=== PATIENT | male | born 1970 | race Hispanic/Latino ===

== ENCOUNTER 2020-05-18 15:02 | Emergency (ER) | payer BC ==
[2020-05-19 01:59] LABS: SARS-CoV-2 MS2 Positive; SARS-CoV-2 N Gene Positive; SARS-CoV-2 S Gene Positive; SARS-CoV-2 by NAA DETECTED (NotDetected); SARS-CoV-2 orf1ab Positive
== END 2020-05-18 15:21 | disposition home or self-care (01) ==
LOC: ERS 15:02
DX: U07.1 COVID-19 (principal)
CPT/HCPCS: 87635; 99283; U0003

== ENCOUNTER 2020-05-19 20:37 | Emergency (ER) | payer BC ==
[2020-05-19] MEDS ORDERED: Ibuprofen 200 MG TAB ONE (20:55)
[2020-05-19] MEDS ORDERED: Acetaminophen 500 MG TAB ONE (20:55)
[2020-05-19 21:34] LABS: Hemoglobin 16.5 g/dL (14.0-18.0); Mean Corpuscular HGB CONC 35.3 g/dL (32.0-36.0); Mean Corpuscular Hemoglobin 31.1 pg (27.0-31.0); Mean Corpuscular Volume 88.1 fL (78.0-98.0); White Blood Cell (WBC) Count 4.7 thou/uL (4.8-10.8)
[2020-05-19 21:50] LABS: ALT (SGPT) 24 U/L (8-55); AST (SGOT) 31 U/L (5-34); Albumin 3.8 g/dL (3.5-5.0); Alkaline Phosphatase 49 U/L (40-110); Anion Gap 16 mmol/L (10-20); BUN (Urea Nitrogen) 10 mg/dL (8.9-20.6); Bilirubin, Total 0.5 mg/dL (0.2-1.2); Calc. Creatinine Clearance 0 mL/min (70-130); Carbon Dioxide 20 mmol/L (22-29); Chloride 98 mmol/L (98-107); Globulin 3.5 g/dL (2.4-3.5); Glucose 135 mg/dL (70-105); Potassium 3.8 mmol/L (3.5-5.1); Protein, Total 7.3 g/dL (6.0-8.3); Sodium 130 mmol/L (136-145)
[2020-05-19 21:52] LABS: #Lymphocytes 0.9 thou/uL (1.20-3.40); #Monocytes 0.2 thou/uL (0.11-0.59); #Neutrophils 3.6 thou/uL (1.40-6.50); %Basophils 0.5 % (0.0-1.0); %Lymphocytes 19.2 % (21.0-51.0); %Monocytes 4.5 % (0.0-10.0); %Neutrophils 75.8 % (42.0-75.0); Mean Platelet Volume 8.7 fL (7.4-10.4); Platelet Count 105 thou/uL (130-400); Platelet Morphology Comment Appears Decreased
--- NOTE | 2020-05-19 22:22 | RAD ---
EXAM: CHEST ONE VIEW HISTORY: Fever and bodyaches. Covid exposure. COMPARISON: None FINDINGS: Cardiac silhouette is magnified by projection. Pulmonary vasculature is within normal limits. There i s linear and patchy parenchymal density at the right lung base with suggestion of subtle patchy parenchymal density in the left midlung zone. Findings are worrisome for pneumonitis, and Covid pneum onia is a possibility. No consolidation or pleural fluid is appreciated. The osseous structures are intact. IMPRESSION: Minimal patchy densities at the right lung base and left midlung zone. Findings are suggestive of pne umonitis, and Covid pneumonia is a possibility.
[2020-05-19] MEDS ORDERED: Dexamethasone 4 mg/ml Vial ONE (22:35)
== END 2020-05-19 22:37 | disposition home or self-care (01) ==
LOC: ERS 20:37
DX: U07.1 COVID-19 (principal)
CPT/HCPCS: 71045; 80053; 85025; 96374; J1100

== ENCOUNTER 2020-05-23 10:53 | Inpatient (IN) | payer BC ==
[2020-05-23] MEDS ORDERED: Azithromycin 500 MG VIAL ONE (11:20)
[2020-05-23] MEDS ORDERED: Acetaminophen 500 MG TAB ONE (11:20)
[2020-05-23] MEDS ORDERED: cefTRIAXone\\ROCEPHIN 1 GM VIAL ONE (11:20)
[2020-05-23] MEDS ORDERED: Dexamethasone 4 mg/ml Vial ONE (11:47)
[2020-05-23 11:51] LABS: White Blood Cell (WBC) Count 16.1 thou/uL (4.8-10.8)
--- NOTE | 2020-05-23 12:04 | RAD ---
CHEST 1 VIEW: Date: 05/23/2020 HISTORY: Chest pain, worsening shortness of breath and difficulty breathing, COVID-positive. COMPARISON: 05/19/2020. FINDINGS: Fairly extensive progressive alveolar, interstitial, and ground-glass opacity changes bilaterally thr oughout the lung zones. No significant pleural effusion. IMPRESSION: Evidence for worsening progressive bilateral COVID pneumonia. POS: AH
[2020-05-23 12:06] LABS: Base Excess-Venous -1.8 mmol/L (-2.0 to 3.0); Bicarbonate (HCO3v) 19.8 mmol/L (22.0-28.0); CO2 Tension (PvCO2) 25.5 mmHg (40.0-50.0); Calcium, Ionized 0.93 mmol/L (1.15-1.33); Chloride 102 mmol/L (98-107); Potassium 3.6 mmol/L (3.5-5.1); Sodium 134 mmol/L (138-145); T. Carbon Dioxide 20.6 mmol/L (22.0-28.0)
[2020-05-23 12:06] LABS: Hemoglobin 16.4 g/dL (14.0-18.0); Mean Corpuscular HGB CONC 34.8 g/dL (32.0-36.0); Mean Corpuscular Hemoglobin 30.9 pg (27.0-31.0); Mean Corpuscular Volume 88.9 fL (78.0-98.0); Mean Platelet Volume 9.1 fL (7.4-10.4); Platelet Count 148 thou/uL (130-400); RBC Distribution Width 12.4 % (11.5-14.5)
[2020-05-23 12:09] LABS: ALT (SGPT) 25 U/L (8-55); AST (SGOT) 41 U/L (5-34); Albumin 3.4 g/dL (3.5-5.0); Alkaline Phosphatase 48 U/L (40-110); Anion Gap 16 mmol/L (10-20); BUN (Urea Nitrogen) 17 mg/dL (8.9-20.6); Bilirubin, Total 0.7 mg/dL (0.2-1.2); Calc. Creatinine Clearance 0 mL/min (70-130); Calcium 8.2 mg/dL (7.8-10.44); Carbon Dioxide 21 mmol/L (22-29); Chloride 99 mmol/L (98-107); Globulin 3.7 g/dL (2.4-3.5); Glucose 140 mg/dL (70-105); Potassium 4.1 mmol/L (3.5-5.1); Protein, Total 7.1 g/dL (6.0-8.3); Sodium 132 mmol/L (136-145)
[2020-05-23 12:12] LABS: Band 14 % (5-11); Lymphocytes 3 % (21-51); MDiff Complete? YES; Monocytes 1 % (0-10); Neutrophil 82 % (42-75); Platelet Morphology Comment Appears Adequate; RBC Morphology Normal
[2020-05-23] MEDS ORDERED: Iopamidol-370 76% 500 ML 1 ML ONE (13:12)
--- NOTE | 2020-05-23 13:44 | CT ---
CTA Angio Chest W WO Con 05/23/2020 1:17 PM Indication: Chest pain Technique: Multiple CTA images were obtained of the thorax with IV contrast. 3-D rendering: MIP nadira nstructed images were created and reviewed. Comparison: No relevant prior studies available. Findings: Pulmonary arteries: No central or segmental pulmonary embolus is evident. Heart and Aorta: There are coronary artery calcifications. Mediastinum:There are mildly prominent lymph nodes within the hilar region and mediastinum. There is a prominent prevascular lymph node measuring 1.3 cm. Lungs:There is bilateral airspace consolidation consistent with multifocal pneumonia. Pleural space: Clear. Upper Abdomen: No acute abnormality. Osseous Structures: No acute osseous abnormality. Soft tissues:No abnormality. Other findings:None. Impression: 1. No central or segmental pulmonary embolus. 2. Multifocal pneumonia. 3. Mildly prominent lymph nodes within the hilar regions and mediastinum are likely reactive. Follow- up CT examination after abatement of the acute symptoms is recommended to document resolution or stability.
[2020-05-23] MEDS ORDERED: Ondansetron PF 4 MG/2 ML Vial IVP PRN (14:17)
--- NOTE | 2020-05-23 14:36 | HP ---
CHIEF COMPLAINT: Shortness of breath. HISTORY OF PRESENT ILLNESS: The patient is a 50-year-old male with no significant past medical history, who was diagnosed with COVID-19 ten days ago. He presented to the ER with complaints of worsening shortness of breath, chest pain, and fever. He endorses dry cough and diarrhea, and denies vomiting, palpitations, or dizziness. REVIEW OF SYSTEMS: Negative except as noted in HPI. PAST MEDICAL HISTORY: None. PAST SURGICAL HISTORY: Cholecystectomy. SOCIAL HISTORY: The patient denies alcohol use, illicit drug use, or smoking. FAMILY HISTORY: Noncontributory. PHYSICAL EXAMINATION: GENERAL: The patient is alert and oriented x3. HEENT: Head is normocephalic and atraumatic. Extraocular muscles are intact. NECK: Supple. CHEST: Clear to auscultation bilaterally with some crackles at the bases. ABDOMEN: Soft, nontender, nondistended. NEUROLOGIC: Nonfocal. ASSESSMENT: 1. Acute respiratory failure with hypoxia. 2. COVID-19 infection. PLAN: The patient will be admitted to the hospital and started on supplemental oxygen, dexamethasone, and Lovenox for anticoagulation. We will monitor his condition on the medical floor. Job ID: [id number]
[2020-05-23 14:49] LABS: Bilirubin Negative (Negative); Blood, Urine Negative (Negative); Clarity Clear (Clear); Glucose, Urine (Dipstick) Normal (Negative); Ketone, Urine Negative (Negative); Leukocyte Negative Leu/uL (Negative); Nitrite Negative (Negative); Protein, Urine (Dipstick) Negative (Neg-Trace); Specific Gravity, Urine 1.028 (1.002-1.036); Urobilinogen Normal mg/dL (Less than 2); pH, Urine 6.5 (5.0-9.0)
[2020-05-23 14:49] LABS: Lactic Acid 1.6 mmol/L (0.5-2.2)
[2020-05-23] MEDS: Enoxaparin Sodium 40 MG/0.4 ML SYRINGE SC SCH (20:25)
[2020-05-23] MEDS: Acetaminophen 325 MG TAB PO PRN (20:38)
[2020-05-23] MEDS ORDERED: Acetaminophen 325 MG TAB PO SCH (22:15)
[2020-05-24] MEDS: Acetaminophen 325 MG TAB PO PRN ×2 (06:01→16:55)
[2020-05-24 06:44] LABS: Anion Gap 14 mmol/L (10-20); BUN (Urea Nitrogen) 19 mg/dL (8.9-20.6); Calc. Creatinine Clearance 121 mL/min (70-130); Calcium 7.9 mg/dL (7.8-10.44); Carbon Dioxide 22 mmol/L (22-29); Chloride 101 mmol/L (98-107); Glucose 140 mg/dL (70-105); Potassium 4.2 mmol/L (3.5-5.1); Sodium 133 mmol/L (136-145)
[2020-05-24 06:49] LABS: Band 28 % (5-11); Hemoglobin 15.5 g/dL (14.0-18.0); Lymphocytes 7 % (21-51); MDiff Complete? YES; Mean Corpuscular HGB CONC 33.6 g/dL (32.0-36.0); Mean Corpuscular Hemoglobin 30.3 pg (27.0-31.0); Mean Corpuscular Volume 90.3 fL (78.0-98.0); Mean Platelet Volume 9.3 fL (7.4-10.4); Monocytes 3 % (0-10); Neutrophil 61 % (42-75); Platelet Count 169 thou/uL (130-400); Platelet Morphology Comment Appears Adequate; RBC Distribution Width 12.5 % (11.5-14.5); RBC Morphology Normal; Reactive Lymphocytes 1 % (0-10); White Blood Cell (WBC) Count 16.7 thou/uL (4.8-10.8)
[2020-05-24] MEDS ORDERED: FLU VACC QS2020-21(6MOS UP)/PF 60 MCG/0.5 ML SYRINGE IM ONE (09:00)
[2020-05-24] MEDS: Dexamethasone 4 mg/ml Vial SLOW IVP SCH (09:59)
[2020-05-24] MEDS: Enoxaparin Sodium 40 MG/0.4 ML SYRINGE SC SCH ×2 (10:00→20:19)
--- NOTE | 2020-05-24 15:20 | PDOC.HOSPP ---
- Subjective Encounter Date: 05/24/20 Encounter Time: 15:18 Subjective: patient seen on f/u for respiratory failure secondary to covid 19, currently patient is on high flow oxygen, states MANUEL with minimal movement. denies any fever chills n/v does refers some cough - Objective Vital Signs & Weight: Vital Signs (12 hours) Temp Pulse Resp BP Pulse Ox 05/24/20 09:00 99.7 F H 89 28 H 108/65 94 L 05/24/20 08:00 94 L 05/24/20 05:00 85 24 H 92 L 05/24/20 04:20 98.9 F 89 28 H 104/68 87 L 05/24/20 04:15 83 L Weight Weight 183 lb 4.8 oz I&O: 05/23/20 05/24/20 05/25/20 06:59 06:59 06:59 Intake Total 730 480 Output Total 450 Balance 280 480 Result Diagrams: 05/24/20 05:37 05/24/20 05:37 Hospitalist ROS - Review of Systems All other systems reviewed; all pertinent +/- noted in HPI/Subj - Medication Medications: Active Medications Generic Name Dose Route Start Last Admin Trade Name Freq PRN Reason Stop Dose Admin Acetaminophen 650 mg 05/23/20 14:17 05/24/20 06:01 Acetaminophen 325 Mg Tab PO 650 mg Q4H PRN Administration Headache/Fever/Mild Pain (1-3) Dexamethasone 6 mg 05/24/20 09:00 05/24/20 09:59 Dexamethasone 4 Mg/Ml Vial SLOW IVP 6 mg DAILY ISABEL Administration Enoxaparin Sodium 40 mg 05/23/20 21:00 05/24/20 10:00 Enoxaparin Sodium 40 Mg/0.4 Ml Syringe SC 40 mg 0900,2100 ISABEL Administration - Exam General Appearance: NAD, awake alert Eye: PERRL, anicteric sclera ENT: normocephalic atraumatic, no oropharyngeal lesions Neck: supple, symmetric, no JVD Heart: RRR, no murmur, no gallops Respiratory: CTAB, no wheezes, no rales, tachypneic Gastrointestinal: soft, non-tender, non-distended Extremities: no cyanosis, no clubbing, no edema Skin: normal turgor, no lesions, no rashes Neurological: cranial nerve grossly intact, normal sensation to touch Musculoskeletal: normal tone, no muscle wasting Psychiatric: normal affect, normal behavior, A&O x 3 Hosp A/P (1) Pneumonia due to COVID-19 virus Code(s): U07.1 - COVID-19; J12.89 - OTHER VIRAL PNEUMONIA Status: Acute (2) Respiratory failure with hypoxia Code(s): J96.91 - RESPIRATORY FAILURE, UNSPECIFIED WITH HYPOXIA Status: Acute - Plan respiratory failure with hypoxia - on high flow 02 - wean as tolerated - likely secondary to covid 19 covid 19 pneumonia - on decadron ivd - started prophylactically on rocephin + aleks - 02 supplementation as above - dvt prophylaxis
[2020-05-24] MEDS: cefTRIAXone\\ROCEPHIN 1 GM in Sodium Chloride 0.9% 100 ML IVPB SCH (16:05)
[2020-05-24] MEDS: Azithromycin 500 MG in Sodium Chloride 0.9% 250 ML 250 ML IVPB SCH (16:55)
[2020-05-25 06:13] LABS: Anion Gap 16 mmol/L (10-20); BUN (Urea Nitrogen) 20 mg/dL (8.9-20.6); Calc. Creatinine Clearance 133 mL/min (70-130); Calcium 7.7 mg/dL (7.8-10.44); Carbon Dioxide 21 mmol/L (22-29); Chloride 106 mmol/L (98-107); Glucose 145 mg/dL (70-105); Potassium 4.5 mmol/L (3.5-5.1); Sodium 138 mmol/L (136-145)
[2020-05-25 06:22] LABS: Band 14 % (5-11); Hemoglobin 14.7 g/dL (14.0-18.0); Lymphocytes 3 % (21-51); MDiff Complete? YES; Mean Corpuscular HGB CONC 33.8 g/dL (32.0-36.0); Mean Corpuscular Hemoglobin 30.6 pg (27.0-31.0); Mean Corpuscular Volume 90.4 fL (78.0-98.0); Monocytes 7 % (0-10); Neutrophil 76 % (42-75); Nucleated RBC 1 % (0); Platelet Count 212 thou/uL (130-400); Platelet Morphology Comment Appears Adequate; RBC Distribution Width 12.4 % (11.5-14.5); White Blood Cell (WBC) Count 10.6 thou/uL (4.8-10.8)
[2020-05-25] MEDS: Enoxaparin Sodium 40 MG/0.4 ML SYRINGE SC SCH ×2 (07:51→20:31)
[2020-05-25] MEDS: Dexamethasone 4 mg/ml Vial SLOW IVP SCH (07:51)
--- NOTE | 2020-05-25 13:24 | PDOC.HOSPP ---
- Subjective Encounter Date: 05/25/20 Encounter Time: 10:00 Subjective: patient seen on f/u, refers no significant change in his status, complains of dyspnea and cough. denies fever chills chest pain or abdominal pain, does refers episodes of diarrhea for a couple of days. patient states gets winded when moving from bed to bedside chair - Objective Vital Signs & Weight: Vital Signs (12 hours) Temp Pulse Resp BP Pulse Ox 05/25/20 11:08 98.6 F 88 20 110/73 92 L 05/25/20 09:00 98.6 F 05/25/20 08:00 90 L 05/25/20 07:32 98.6 F 80 22 H 97/66 90 L 05/25/20 05:00 98.7 F 71 22 H 105/72 92 L Weight Weight 183 lb 4.8 oz I&O: 05/24/20 05/25/20 05/26/20 06:59 06:59 06:59 Intake Total 730 1870 240 Output Total 450 450 Balance 280 1420 240 Result Diagrams: 05/25/20 05:47 05/25/20 05:48 Hospitalist ROS - Review of Systems All other systems reviewed; all pertinent +/- noted in HPI/Subj - Medication Medications: Active Medications Generic Name Dose Route Start Last Admin Trade Name Freq PRN Reason Stop Dose Admin Acetaminophen 650 mg 05/23/20 14:17 05/24/20 16:55 Acetaminophen 325 Mg Tab PO 650 mg Q4H PRN Administration Headache/Fever/Mild Pain (1-3) Dexamethasone 6 mg 05/24/20 09:00 05/25/20 07:51 Dexamethasone 4 Mg/Ml Vial SLOW IVP 6 mg DAILY ISABEL Administration Enoxaparin Sodium 40 mg 05/23/20 21:00 05/25/20 07:51 Enoxaparin Sodium 40 Mg/0.4 Ml Syringe SC 40 mg 0900,2100 ISABEL Administration Ceftriaxone Sodium 1 gm/ 100 mls @ 200 mls/hr 05/24/20 16:00 05/24/20 16:05 Sodium Chloride IVPB 100 mls 1600 ISABEL Administration Azithromycin 500 mg/ Sodium 250 mls @ 250 mls/hr 05/24/20 17:00 05/24/20 16:55 Chloride IVPB 250 mls 1700 ISABEL Administration - Exam General Appearance: ill appearing Eye: PERRL, anicteric sclera ENT: normocephalic atraumatic, no oropharyngeal lesions Neck: supple, symmetric, no JVD Heart: RRR, no murmur, no gallops Respiratory: CTAB, no wheezes, no rales Gastrointestinal: soft, non-tender, non-distended Extremities: no cyanosis, no clubbing, no edema Skin: normal turgor, no lesions, no rashes Neurological: cranial nerve grossly intact, normal sensation to touch Psychiatric: normal affect, normal behavior, A&O x 3 Hosp A/P (1) Pneumonia due to COVID-19 virus Code(s): U07.1 - COVID-19; J12.89 - OTHER VIRAL PNEUMONIA Status: Acute (2) Respiratory failure with hypoxia Code(s): J96.91 - RESPIRATORY FAILURE, UNSPECIFIED WITH HYPOXIA Status: Acute - Plan respiratory failure with hypoxia - on high flow 02, have been unable to wean anita - wean as tolerated - likely secondary to covid 19 covid 19 pneumonia - on decadron ivd - started prophylactically on rocephin + aleks due to leukocytosis - 02 supplementation as above - dvt prophylaxis - will add vit c, zinc and vit d
[2020-05-25] MEDS: cefTRIAXone\\ROCEPHIN 1 GM in Sodium Chloride 0.9% 100 ML IVPB SCH (15:26)
[2020-05-25] MEDS: Azithromycin 500 MG in Sodium Chloride 0.9% 250 ML 250 ML IVPB SCH (17:32)
[2020-05-25] MEDS ORDERED: Albuterol Sulfate 1.25 MG/3 ML NEB NEB PRN (23:39)
[2020-05-26] MEDS: Albuterol 200 PUFF (6.7GM INHALER) INH PRN (00:07)
[2020-05-26] MEDS: Dexamethasone 4 mg/ml Vial SLOW IVP SCH (07:49)
[2020-05-26] MEDS: Cholecalciferol (Vitamin D3) 400 UNITS TAB PO SCH (07:50)
[2020-05-26] MEDS: Enoxaparin Sodium 40 MG/0.4 ML SYRINGE SC SCH ×2 (07:50→20:05)
[2020-05-26] MEDS: Zinc Sulfate 220 MG CAP PO SCH (07:50)
[2020-05-26] MEDS: Ascorbic Acid 500 mg Chewable Tablet PO SCH (07:50)
[2020-05-26] MEDS: Benzonatate 100 MG CAP PO SCH ×2 (14:54→20:04)
[2020-05-26] MEDS: cefTRIAXone\\ROCEPHIN 1 GM in Sodium Chloride 0.9% 100 ML IVPB SCH (14:54)
[2020-05-26] MEDS: Azithromycin 500 MG in Sodium Chloride 0.9% 250 ML 250 ML IVPB SCH (17:18)
--- NOTE | 2020-05-26 17:48 | PDOC.HOSPP ---
- Subjective Encounter Date: 05/26/20 Encounter Time: 14:00 Subjective: patient in chair, complains of persistent SOB and still requiring HFNC, no signficiant change overnight. complains of cough. - Objective Vital Signs & Weight: Vital Signs (12 hours) Temp Pulse Resp BP Pulse Ox 05/26/20 15:56 95 05/26/20 11:08 96 05/26/20 08:12 94 L 05/26/20 07:17 98.4 F 70 20 119/73 91 L Weight Weight 183 lb 4.8 oz I&O: 05/25/20 05/26/20 05/27/20 06:59 06:59 06:59 Intake Total 1870 1870 Output Total 450 500 Balance 1420 1370 Result Diagrams: 05/25/20 05:47 05/25/20 05:48 Hospitalist ROS - Medication Medications: Active Medications Generic Name Dose Route Start Last Admin Trade Name Freq PRN Reason Stop Dose Admin Acetaminophen 650 mg 05/23/20 14:17 05/24/20 16:55 Acetaminophen 325 Mg Tab PO 650 mg Q4H PRN Administration Headache/Fever/Mild Pain (1-3) Albuterol Sulfate 1 puff 05/25/20 23:43 05/26/20 00:07 Albuterol 200 Puff (6.7gm Inhaler) INH 1 puff Q8H PRN Administration Wheezing Ascorbic Acid 1,000 mg 05/26/20 09:00 05/26/20 07:50 Ascorbic Acid 500 Mg Chewable Tablet PO 1,000 mg DAILY ISABEL Administration Benzonatate 100 mg 05/26/20 15:00 05/26/20 14:54 Benzonatate 100 Mg Cap PO 05/29/20 15:01 100 mg TID ISABEL Administration Cholecalciferol 400 units 05/26/20 09:00 05/26/20 07:50 Cholecalciferol (Vitamin D3) 400 Units Tab PO 400 units DAILY ISABEL Administration Dexamethasone 6 mg 05/24/20 09:00 05/26/20 07:49 Dexamethasone 4 Mg/Ml Vial SLOW IVP 6 mg DAILY ISABEL Administration Enoxaparin Sodium 40 mg 05/23/20 21:00 05/26/20 07:50 Enoxaparin Sodium 40 Mg/0.4 Ml Syringe SC 40 mg 0900,2100 ISABEL Administration Ceftriaxone Sodium 1 gm/ 100 mls @ 200 mls/hr 05/24/20 16:00 05/26/20 14:54 Sodium Chloride IVPB 100 mls 1600 ISABEL Administration Azithromycin 500 mg/ Sodium 250 mls @ 250 mls/hr 05/24/20 17:00 05/26/20 17:18 Chloride IVPB 250 mls 1700 ISABEL Administration Zinc Sulfate 220 mg 05/26/20 09:00 05/26/20 07:50 Zinc Sulfate 220 Mg Cap PO 220 mg DAILY ISABEL Administration - Exam General Appearance: NAD, awake alert, ill appearing General - other findings: on hfnc Eye: PERRL, anicteric sclera ENT: normocephalic atraumatic, no oropharyngeal lesions, moist mucosa Neck: supple, symmetric, no JVD, no thyromegaly, no lymphadenopathy, no carotid bruit Heart: RRR, no murmur, no gallops, no rubs, normal peripheral pulses Respiratory: CTAB, no wheezes, no rales, no ronchi, normal chest expansion, no tachypnea, normal percussion Gastrointestinal: soft, non-tender, non-distended, normal bowel sounds, no palpable masses, no hepatomegaly, no splenomegaly, no bruit Extremities: no cyanosis, no clubbing, no edema Skin: normal turgor, no lesions, no rashes Neurological: cranial nerve grossly intact, normal sensation to touch, no weakness, no focal deficits, no new deficit Musculoskeletal: normal tone, normal strength, no muscle wasting Psychiatric: normal affect, normal behavior, A&O x 3 Hosp A/P (1) Pneumonia due to COVID-19 virus Code(s): U07.1 - COVID-19; J12.89 - OTHER VIRAL PNEUMONIA Status: Acute (2) Respiratory failure with hypoxia Code(s): J96.91 - RESPIRATORY FAILURE, UNSPECIFIED WITH HYPOXIA Status: Acute - Plan respiratory failure with hypoxia - on high flow 02, have been unable to wean anita - wean as tolerated - likely secondary to covid 19 covid 19 pneumonia - on decadron ivd - started prophylactically on rocephin + aleks due to leukocytosis - 02 supplementation as above - dvt prophylaxis - continue vit c, zinc and vit d # cough - tessalon pearls added
[2020-05-27 07:33] LABS: Anion Gap 14 mmol/L (10-20); BUN (Urea Nitrogen) 16 mg/dL (8.9-20.6); Calc. Creatinine Clearance 142 mL/min (70-130); Calcium 7.4 mg/dL (7.8-10.44); Carbon Dioxide 18 mmol/L (22-29); Chloride 104 mmol/L (98-107); Glucose 150 mg/dL (70-105); Sodium 132 mmol/L (136-145)
[2020-05-27 07:43] LABS: Hemoglobin 14.9 g/dL (14.0-18.0); Mean Corpuscular HGB CONC 33.6 g/dL (32.0-36.0); Mean Corpuscular Hemoglobin 30.2 pg (27.0-31.0); Mean Corpuscular Volume 89.8 fL (78.0-98.0); Mean Platelet Volume 10.1 fL (7.4-10.4); Platelet Count 160 thou/uL (130-400); RBC Distribution Width 12.3 % (11.5-14.5); Red Blood Cell (RBC) Count 4.93 mill/uL (4.70-6.10)
[2020-05-27] MEDS: Zinc Sulfate 220 MG CAP PO SCH (08:15)
[2020-05-27] MEDS: Enoxaparin Sodium 40 MG/0.4 ML SYRINGE SC SCH ×2 (08:15→20:17)
[2020-05-27] MEDS: Dexamethasone 4 mg/ml Vial SLOW IVP SCH (08:15)
[2020-05-27] MEDS: Ascorbic Acid 500 mg Chewable Tablet PO SCH (08:15)
[2020-05-27] MEDS: Benzonatate 100 MG CAP PO SCH ×3 (08:16→20:16)
[2020-05-27] MEDS: Cholecalciferol (Vitamin D3) 400 UNITS TAB PO SCH (08:16)
[2020-05-27 09:45] LABS: Band 8 % (5-11); Lymphocytes 6 % (21-51); MDiff Complete? YES; Monocytes 6 % (0-10); Neutrophil 80 % (42-75); Platelet Morphology Comment Appears Adequate; Polychromasia SLIGHT = 2-3 cells (100X) (0-2/hpf)
--- NOTE | 2020-05-27 13:22 | PDOC.HOSPP ---
- Subjective Encounter Date: 05/27/20 Encounter Time: 12:30 Subjective: patient in chair on hfnc, reports feeling weak since not ambulating, nursing thinks therapy evaluation would help. denies chest pain or shortness of breath. - Objective Vital Signs & Weight: Vital Signs (12 hours) Temp Pulse Resp BP Pulse Ox 05/27/20 10:47 98.5 F 82 20 112/70 92 L 05/27/20 04:00 98.3 F 73 20 119/71 95 Weight Weight 183 lb 4.8 oz I&O: 05/26/20 05/27/20 05/28/20 06:59 06:59 06:59 Intake Total 1870 1250 Output Total 500 700 Balance 1370 550 Result Diagrams: 05/27/20 06:54 05/27/20 06:54 Radiology Reviewed by me: Yes Hospitalist ROS - Medication Medications: Active Medications Generic Name Dose Route Start Last Admin Trade Name Freq PRN Reason Stop Dose Admin Acetaminophen 650 mg 05/23/20 14:17 05/24/20 16:55 Acetaminophen 325 Mg Tab PO 650 mg Q4H PRN Administration Headache/Fever/Mild Pain (1-3) Albuterol Sulfate 1 puff 05/25/20 23:43 05/26/20 00:07 Albuterol 200 Puff (6.7gm Inhaler) INH 1 puff Q8H PRN Administration Wheezing Ascorbic Acid 1,000 mg 05/26/20 09:00 05/27/20 08:15 Ascorbic Acid 500 Mg Chewable Tablet PO 1,000 mg DAILY ISABEL Administration Benzonatate 100 mg 05/26/20 15:00 05/27/20 08:16 Benzonatate 100 Mg Cap PO 05/29/20 15:01 100 mg TID ISABEL Administration Cholecalciferol 400 units 05/26/20 09:00 05/27/20 08:16 Cholecalciferol (Vitamin D3) 400 Units Tab PO 400 units DAILY ISABEL Administration Dexamethasone 6 mg 05/24/20 09:00 05/27/20 08:15 Dexamethasone 4 Mg/Ml Vial SLOW IVP 6 mg DAILY ISABEL Administration Enoxaparin Sodium 40 mg 05/23/20 21:00 05/27/20 08:15 Enoxaparin Sodium 40 Mg/0.4 Ml Syringe SC 40 mg 0900,2100 ISABEL Administration Ceftriaxone Sodium 1 gm/ 100 mls @ 200 mls/hr 05/24/20 16:00 05/26/20 14:54 Sodium Chloride IVPB 100 mls 1600 ISABEL Administration Azithromycin 500 mg/ Sodium 250 mls @ 250 mls/hr 05/24/20 17:00 05/26/20 17:18 Chloride IVPB 250 mls 1700 ISABEL Administration Zinc Sulfate 220 mg 05/26/20 09:00 05/27/20 08:15 Zinc Sulfate 220 Mg Cap PO 220 mg DAILY ISABEL Administration - Exam General Appearance: NAD, awake alert Eye: PERRL, anicteric sclera ENT: normocephalic atraumatic, no oropharyngeal lesions, moist mucosa Neck: supple, symmetric, no JVD, no thyromegaly, no lymphadenopathy, no carotid bruit Heart: RRR, no murmur, no gallops, no rubs, normal peripheral pulses Respiratory: CTAB, no wheezes, no rales, no ronchi, normal chest expansion, no tachypnea, normal percussion Gastrointestinal: soft, non-tender, non-distended, normal bowel sounds, no palpable masses, no hepatomegaly, no splenomegaly, no bruit Extremities: no cyanosis, no clubbing, no edema Skin: normal turgor, no lesions, no rashes Neurological: cranial nerve grossly intact, normal sensation to touch, no weakness, no focal deficits, no new deficit Musculoskeletal: normal tone, normal strength, no muscle wasting Psychiatric: normal affect, normal behavior, A&O x 3 Hosp A/P (1) Pneumonia due to COVID-19 virus Code(s): U07.1 - COVID-19; J12.89 - OTHER VIRAL PNEUMONIA Status: Acute (2) Respiratory failure with hypoxia Code(s): J96.91 - RESPIRATORY FAILURE, UNSPECIFIED WITH HYPOXIA Status: Acute - Plan respiratory failure with hypoxia - on high flow 02, have been unable to wean anita - wean as tolerated - likely secondary to covid 19 covid 19 pneumonia - on decadron ivd - started prophylactically on rocephin + aleks due to leukocytosis - 02 supplementation as above - dvt prophylaxis - continue vit c, zinc and vit d # cough - tessalon fercho # debility - PT/OT consult Disposition: prognosis guarded, hopefully improve soon, on high o2 requirements, will start therapy to avoid losing too much muscle mass
[2020-05-27] MEDS: cefTRIAXone\\ROCEPHIN 1 GM in Sodium Chloride 0.9% 100 ML IVPB SCH (15:30)
[2020-05-27] MEDS: Azithromycin 500 MG in Sodium Chloride 0.9% 250 ML 250 ML IVPB SCH (17:12)
[2020-05-28] MEDS: Albuterol 200 PUFF (6.7GM INHALER) INH PRN (06:20)
[2020-05-28] MEDS: Acetaminophen 325 MG TAB PO PRN (06:20)
[2020-05-28 09:16] LABS: Anion Gap 15 mmol/L (10-20); BUN (Urea Nitrogen) 11 mg/dL (8.9-20.6); Calc. Creatinine Clearance 142 mL/min (70-130); Carbon Dioxide 23 mmol/L (22-29); Chloride 101 mmol/L (98-107); Glucose 97 mg/dL (70-105); Sodium 135 mmol/L (136-145)
[2020-05-28 09:21] LABS: Mean Corpuscular HGB CONC 34.1 g/dL (32.0-36.0); Mean Corpuscular Hemoglobin 30.4 pg (27.0-31.0); Mean Corpuscular Volume 89.1 fL (78.0-98.0); Mean Platelet Volume 8.3 fL (7.4-10.4); Platelet Count 273 thou/uL (130-400); RBC Distribution Width 12.1 % (11.5-14.5); Red Blood Cell (RBC) Count 4.95 mill/uL (4.70-6.10)
[2020-05-28] MEDS: Enoxaparin Sodium 40 MG/0.4 ML SYRINGE SC SCH ×2 (09:40→21:09)
[2020-05-28] MEDS: Ascorbic Acid 500 mg Chewable Tablet PO SCH (09:40)
[2020-05-28] MEDS: Zinc Sulfate 220 MG CAP PO SCH (09:40)
[2020-05-28] MEDS: Dexamethasone 4 mg/ml Vial SLOW IVP SCH (09:40)
[2020-05-28] MEDS: Benzonatate 100 MG CAP PO SCH ×3 (09:40→21:09)
[2020-05-28 10:26] LABS: MDiff Complete? YES; Neutrophil 75 % (42-75)
[2020-05-28 10:27] LABS: Band 15 % (5-11); Lymphocytes 5 % (21-51); Metamyelocyte 1 % (0-0); Monocytes 4 % (0-10); RBC Morphology Normal
[2020-05-28] MEDS ORDERED: Cepastat Lozenges 1 LOZ PO PRN (11:54)
[2020-05-28] MEDS: Cholecalciferol (Vitamin D3) 400 UNITS TAB PO SCH (12:14)
[2020-05-28] MEDS: guaiFENesin/Codeine 200 mg/20 mg 10 ml Cup PO PRN ×2 (12:14→21:18)
[2020-05-28] MEDS: cefTRIAXone\\ROCEPHIN 1 GM in Sodium Chloride 0.9% 100 ML IVPB SCH (15:19)
[2020-05-28] MEDS: Azithromycin 500 MG in Sodium Chloride 0.9% 250 ML 250 ML IVPB SCH (16:27)
--- NOTE | 2020-05-28 20:37 | PDOC.HOSPP ---
- Subjective Encounter Date: 05/28/20 Encounter Time: 13:30 Subjective: remains on HFNC, no issues overnight, complains of sore throat - Objective Vital Signs & Weight: Vital Signs (12 hours) Temp Pulse Resp BP Pulse Ox Pulse Ox Pulse Ox 05/28/20 19:10 98.7 F 75 20 113/71 92 L 05/28/20 12:17 98 05/28/20 12:00 98.3 F 05/28/20 11:44 96 97 Weight Weight 183 lb 4.8 oz I&O: 05/27/20 05/28/20 05/29/20 06:59 06:59 06:59 Intake Total 1250 1150 1480 Output Total 700 2000 600 Balance 550 -850 880 Result Diagrams: 05/28/20 08:09 05/28/20 08:09 Hospitalist ROS - Medication Medications: Active Medications Generic Name Dose Route Start Last Admin Trade Name Freq PRN Reason Stop Dose Admin Acetaminophen 650 mg 05/23/20 14:17 05/28/20 06:20 Acetaminophen 325 Mg Tab PO 650 mg Q4H PRN Administration Headache/Fever/Mild Pain (1-3) Albuterol Sulfate 1 puff 05/25/20 23:43 05/28/20 06:20 Albuterol 200 Puff (6.7gm Inhaler) INH 1 puff Q8H PRN Administration Wheezing Ascorbic Acid 1,000 mg 05/26/20 09:00 05/28/20 09:40 Ascorbic Acid 500 Mg Chewable Tablet PO 1,000 mg DAILY ISABEL Administration Benzonatate 100 mg 05/26/20 15:00 05/28/20 15:20 Benzonatate 100 Mg Cap PO 05/29/20 15:01 100 mg TID ISABEL Administration Cholecalciferol 400 units 05/26/20 09:00 05/28/20 12:14 Cholecalciferol (Vitamin D3) 400 Units Tab PO 400 units DAILY ISABEL Administration Dexamethasone 6 mg 05/24/20 09:00 05/28/20 09:40 Dexamethasone 4 Mg/Ml Vial SLOW IVP 6 mg DAILY ISABEL Administration Enoxaparin Sodium 40 mg 05/23/20 21:00 05/28/20 09:40 Enoxaparin Sodium 40 Mg/0.4 Ml Syringe SC 40 mg 0900,2100 ISABEL Administration Guaifenesin/Codeine Phosphate 10 ml 05/28/20 11:54 05/28/20 12:14 Guaifenesin/Codeine Phosphate 200 Mg/20 Mg 10 Ml Ud Cup PO 10 ml Q6H PRN Administration Cough Ceftriaxone Sodium 1 gm/ 100 mls @ 200 mls/hr 05/24/20 16:00 05/28/20 15:19 Sodium Chloride IVPB 100 mls 1600 ISABEL Administration Azithromycin 500 mg/ Sodium 250 mls @ 250 mls/hr 05/24/20 17:00 05/28/20 16:27 Chloride IVPB 250 mls 1700 ISABEL Administration Throat Lozenges 1 aaliyah 05/28/20 11:54 05/28/20 15:19 Cepastat Lozenges 1 Aaliyah PO 1 aaliyah Q2H PRN Administration Sore Throat Zinc Sulfate 220 mg 05/26/20 09:00 05/28/20 09:40 Zinc Sulfate 220 Mg Cap PO 220 mg DAILY ISABEL Administration - Exam General Appearance: NAD, awake alert Eye: PERRL, anicteric sclera ENT: normocephalic atraumatic, no oropharyngeal lesions, moist mucosa Neck: supple, symmetric, no JVD, no thyromegaly, no lymphadenopathy, no carotid bruit Heart: RRR, no murmur, no gallops, no rubs, normal peripheral pulses Respiratory: CTAB, no wheezes, no rales, no ronchi, normal chest expansion, no tachypnea, normal percussion Gastrointestinal: soft, non-tender, non-distended, normal bowel sounds, no palpable masses, no hepatomegaly, no splenomegaly, no bruit Extremities: no cyanosis, no clubbing, no edema Skin: normal turgor, no lesions, no rashes Neurological: cranial nerve grossly intact, normal sensation to touch, no weakness, no focal deficits, no new deficit Musculoskeletal: normal tone, normal strength, no muscle wasting Psychiatric: normal affect, normal behavior, A&O x 3 Hosp A/P (1) Pneumonia due to COVID-19 virus Code(s): U07.1 - COVID-19; J12.89 - OTHER VIRAL PNEUMONIA Status: Acute (2) Respiratory failure with hypoxia Code(s): J96.91 - RESPIRATORY FAILURE, UNSPECIFIED WITH HYPOXIA Status: Acute - Plan respiratory failure with hypoxia - on high flow 02, have been unable to wean anita - wean as tolerated - likely secondary to covid 19 - febrile night of 05/28, continue abx started 05/24 covid 19 pneumonia - on decadron ivd - started prophylactically on rocephin + aleks due to leukocytosis - 02 supplementation as above - dvt prophylaxis - continue vit c, zinc and vit d # cough - tessalon pearls, cepacol lozenge for sore throat, cough syrup ordered # debility - PT/OT consult Disposition: prognosis guarded, hopefully improve soon, on high o2 requirements, consulted therapy to avoid losing too much muscle mass
[2020-05-29] MEDS: Acetaminophen 325 MG TAB PO PRN (05:40)
[2020-05-29] MEDS: Albuterol 200 PUFF (6.7GM INHALER) INH PRN (05:52)
[2020-05-29 07:55] LABS: Anion Gap 15 mmol/L (10-20); BUN (Urea Nitrogen) 13 mg/dL (8.9-20.6); Calc. Creatinine Clearance 157 mL/min (70-130); Calcium 7.6 mg/dL (7.8-10.44); Carbon Dioxide 21 mmol/L (22-29); Chloride 102 mmol/L (98-107); Glucose 125 mg/dL (70-105); Potassium 3.9 mmol/L (3.5-5.1); Sodium 134 mmol/L (136-145)
[2020-05-29 07:58] LABS: Hemoglobin 13.5 g/dL (14.0-18.0); Mean Corpuscular HGB CONC 34.3 g/dL (32.0-36.0); Mean Corpuscular Hemoglobin 31.1 pg (27.0-31.0); Mean Corpuscular Volume 90.5 fL (78.0-98.0); Mean Platelet Volume 8.1 fL (7.4-10.4); Platelet Count 273 thou/uL (130-400); RBC Distribution Width 12.1 % (11.5-14.5); Red Blood Cell (RBC) Count 4.36 mill/uL (4.70-6.10); White Blood Cell (WBC) Count 15.8 thou/uL (4.8-10.8)
[2020-05-29] MEDS: Zinc Sulfate 220 MG CAP PO SCH (08:09)
[2020-05-29] MEDS: guaiFENesin/Codeine 200 mg/20 mg 10 ml Cup PO PRN ×2 (08:09→16:01)
[2020-05-29] MEDS: Ascorbic Acid 500 mg Chewable Tablet PO SCH (08:09)
[2020-05-29] MEDS: Benzonatate 100 MG CAP PO SCH ×2 (08:09→14:48)
[2020-05-29] MEDS: Dexamethasone 4 mg/ml Vial SLOW IVP SCH (08:09)
[2020-05-29] MEDS: Enoxaparin Sodium 40 MG/0.4 ML SYRINGE SC SCH ×2 (08:10→20:48)
[2020-05-29 08:43] LABS: Band 10 % (5-11); Lymphocytes 3 % (21-51); MDiff Complete? YES; Neutrophil 87 % (42-75); Platelet Morphology Comment Appears Adequate; RBC Morphology Normal
[2020-05-29] MEDS: Cholecalciferol (Vitamin D3) 400 UNITS TAB PO SCH (12:27)
[2020-05-29] MEDS: cefTRIAXone\\ROCEPHIN 1 GM in Sodium Chloride 0.9% 100 ML IVPB SCH (14:48)
[2020-05-29] MEDS: Azithromycin 500 MG in Sodium Chloride 0.9% 250 ML 250 ML IVPB SCH (16:00)
--- NOTE | 2020-05-29 16:16 | PDOC.HOSPP ---
- Subjective Encounter Date: 05/29/20 Encounter Time: 16:15 Subjective: minimal change, remains of HFNC. no shortness of breath or chest pain. - Objective Vital Signs & Weight: Vital Signs (12 hours) Temp Pulse Resp BP Pulse Ox 05/29/20 12:00 99.0 F 78 20 101/65 95 05/29/20 11:11 95 05/29/20 08:00 98.9 F 96 18 95/57 L 89 L 05/29/20 06:10 99.5 F 05/29/20 05:40 99 F Weight Weight 183 lb 4.8 oz I&O: 05/28/20 05/29/20 05/30/20 06:59 06:59 06:59 Intake Total 1150 2390 480 Output Total 2000 600 Balance -850 1790 480 Result Diagrams: 05/29/20 07:23 05/29/20 07:23 Additional Labs: labs, imaging reviewed Radiology Reviewed by me: Yes Hospitalist ROS - Medication Medications: Active Medications Generic Name Dose Route Start Last Admin Trade Name Freq PRN Reason Stop Dose Admin Acetaminophen 650 mg 05/23/20 14:17 05/29/20 05:40 Acetaminophen 325 Mg Tab PO 650 mg Q4H PRN Administration Headache/Fever/Mild Pain (1-3) Albuterol Sulfate 1 puff 05/25/20 23:43 05/29/20 05:52 Albuterol 200 Puff (6.7gm Inhaler) INH 1 puff Q8H PRN Administration Wheezing Ascorbic Acid 1,000 mg 05/26/20 09:00 05/29/20 08:09 Ascorbic Acid 500 Mg Chewable Tablet PO 1,000 mg DAILY ISABEL Administration Cholecalciferol 400 units 05/26/20 09:00 05/29/20 12:27 Cholecalciferol (Vitamin D3) 400 Units Tab PO 400 units DAILY ISABEL Administration Dexamethasone 6 mg 05/24/20 09:00 05/29/20 08:09 Dexamethasone 4 Mg/Ml Vial SLOW IVP 6 mg DAILY ISABEL Administration Enoxaparin Sodium 40 mg 05/23/20 21:00 05/29/20 08:10 Enoxaparin Sodium 40 Mg/0.4 Ml Syringe SC 40 mg 0900,2100 ISABEL Administration Guaifenesin/Codeine Phosphate 10 ml 05/28/20 11:54 05/29/20 16:01 Guaifenesin/Codeine Phosphate 200 Mg/20 Mg 10 Ml Ud Cup PO 10 ml Q6H PRN Administration Cough Ceftriaxone Sodium 1 gm/ 100 mls @ 200 mls/hr 05/24/20 16:00 05/29/20 14:48 Sodium Chloride IVPB 100 mls 1600 ISABEL Administration Azithromycin 500 mg/ Sodium 250 mls @ 250 mls/hr 05/24/20 17:00 05/29/20 16:00 Chloride IVPB 250 mls 1700 ISABEL Administration Throat Lozenges 1 aaliyah 05/28/20 11:54 05/28/20 15:19 Cepastat Lozenges 1 Aaliyah PO 1 aaliyah Q2H PRN Administration Sore Throat Zinc Sulfate 220 mg 05/26/20 09:00 05/29/20 08:09 Zinc Sulfate 220 Mg Cap PO 220 mg DAILY ISABEL Administration - Exam General Appearance: NAD, awake alert General - other findings: HFNC Eye: PERRL ENT: normocephalic atraumatic, no oropharyngeal lesions, moist mucosa Neck: supple, symmetric, no JVD, no thyromegaly, no lymphadenopathy, no carotid bruit Heart: RRR, no murmur, no gallops, no rubs, normal peripheral pulses Respiratory: CTAB, no wheezes, no rales, no ronchi, normal chest expansion, no tachypnea, normal percussion Gastrointestinal: soft, non-tender, non-distended, normal bowel sounds, no palpable masses, no hepatomegaly, no splenomegaly, no bruit Extremities: no cyanosis, no clubbing, no edema Skin: normal turgor, no lesions, no rashes Neurological: cranial nerve grossly intact, normal sensation to touch, no weakness, no focal deficits, no new deficit Musculoskeletal: normal tone, normal strength, no muscle wasting Hosp A/P (1) Pneumonia due to COVID-19 virus Code(s): U07.1 - COVID-19; J12.89 - OTHER VIRAL PNEUMONIA Status: Acute (2) Respiratory failure with hypoxia Code(s): J96.91 - RESPIRATORY FAILURE, UNSPECIFIED WITH HYPOXIA Status: Acute - Plan respiratory failure with hypoxia - on high flow , have been unable to wean anita - wean as tolerated - likely secondary to covid 19 - febrile night of 05/28, continue abx started 12/25 - consult Dr Petty for consideration of additional covid therapires given slow improvement covid 19 pneumonia - on decadron ivd - started prophylactically on rocephin + aleks due to leukocytosis - 02 supplementation as above - dvt prophylaxis - continue vit c, zinc and vit d # cough - tessalon pearls, cepacol lozenge for sore throat, cough syrup ordered # debility - PT/OT consult Disposition: prognosis guarded, hopefully improve soon, on high o2 requirements, consulted therapy to avoid losing too much muscle mass
--- NOTE | 2020-05-29 16:21 | CON ---
DATE OF CONSULTATION: 05/29/2020 REASON FOR CONSULTATION: COVID pneumonia. HISTORY OF PRESENT ILLNESS: A 50-year-old with no past medical history, who initially presented to the emergency room on May 18, about 10 days ago, because of fever, chills, and body aches for 2 days after some exposure. He was released home after testing and the next day he came back with fever again. The COVID results were not yet back and he was saturating 98% on room air. He had chest x-ray with minimal patchy densities in the right lung base. So he was discharged with oral Decadron 6 mg and then finally on the , he comes in the third time to the emergency room with worsening symptoms of dyspnea, diarrhea. This time, he gets admitted, he was saturating 80% on room air and 94% on 4 L of oxygen. So he was admitted by Dr. Skinner on the . He was given Decadron and Lovenox. He was not given remdesivir. We were asked to see him for evaluation for COVID pneumonia. Currently, Mr. Bucio is sitting by the bedside. He is little bit tachypneic, but not much. He is on high-flow nasal cannula and has been on high-flow nasal cannula since May 24 pretty much from admission. He denies any headaches, still coughing but not as much as before. No chest pain, no abdominal pain or diarrhea, no genitourinary symptoms. No neurological symptoms. PAST MEDICAL HISTORY: Negative. PAST SURGICAL HISTORY: Cholecystectomy. SOCIAL HISTORY: Never smoker. No alcoholic beverage use. He works as a truck dispatcher. . Lives in the area. CURRENT MEDICATIONS: 1. Azithromycin. 2. Ceftriaxone. 3. Decadron. 4. Zinc sulfate. 5. Ondansetron. 6. Inhalers. FAMILY HISTORY: Noncontributory. PHYSICAL EXAMINATION: VITAL SIGNS: Right now, he had a temp 102 yesterday and he is now 99, blood pressure 101/65, heart rate 78, respiratory rate 20, O2 saturation 95%, he was 96% when I saw him sitting by the bed in the chair and was 45 L/minute high-flow nasal cannula O2. SKIN: Normal. Peripheral IV access. No lymphadenopathy. GENERAL: Voiding in the urinal. HEENT: Ocular movements conjugate. Oral cavity normal. Numerous teeth in place with good shape. NECK: Supple. No jugular vein distention. LUNGS: Fairly normal breath sounds, actually no wheezing. HEART: S1, S2, regular rate. ABDOMEN: Soft, not distended or tender. No ascites. No bladder distention. EXTREMITIES: No joint inflammatory activity. No edema. Pulses 1+ in dorsalis pedis. NEUROLOGIC: Nonfocal including cognitive function. LABORATORY [place]: [place] [address], hemoglobin 15, platelets 273 with 15% bands. D-dimer 1.02. Creatinine 0.66. Lactic acid was 1.6. I do not have any inflammatory markers measured here. Urinalysis normal. Had a chest CT on the with no pulmonary embolism, multifocal pneumonia, prominent lymph nodes. ASSESSMENT AND PLAN: No past medical history or other risk factors with severe COVID pneumonia. Discontinue antimicrobial Rocephin, azithromycin. Start Remdesivir. Continue Decadron, enoxaparin, oxygen supplementation. Check markers every other day. His Lexie score is > 9 at this time. Job ID: [id number] [facility]
[2020-05-29] MEDS ORDERED: REMDESIVIR (EUA) 200 MG in Sodium Chloride 0.9% 250 ML 210 ML IV SCH (17:00)
[2020-05-30] MEDS: guaiFENesin/Codeine 200 mg/20 mg 10 ml Cup PO PRN ×4 (04:48→21:52)
[2020-05-30] MEDS: Acetaminophen 325 MG TAB PO PRN ×2 (04:50→10:14)
[2020-05-30] MEDS: Albuterol 200 PUFF (6.7GM INHALER) INH PRN ×2 (05:00→22:00)
[2020-05-30] MEDS: Ascorbic Acid 500 mg Chewable Tablet PO SCH (08:38)
[2020-05-30] MEDS: Dexamethasone 4 mg/ml Vial SLOW IVP SCH (08:38)
[2020-05-30] MEDS: Zinc Sulfate 220 MG CAP PO SCH (08:39)
[2020-05-30] MEDS: Enoxaparin Sodium 40 MG/0.4 ML SYRINGE SC SCH ×2 (08:39→21:52)
[2020-05-30] MEDS: cefTRIAXone\\ROCEPHIN 1 GM in Sodium Chloride 0.9% 100 ML IVPB SCH (15:14)
[2020-05-30] MEDS: Azithromycin 500 MG in Sodium Chloride 0.9% 250 ML 250 ML IVPB SCH (16:19)
[2020-05-30] MEDS: Cholecalciferol (Vitamin D3) 400 UNITS TAB PO SCH (16:19)
--- NOTE | 2020-05-30 17:21 | PDOC.HOSPP ---
- Subjective Encounter Date: 05/30/20 Subjective: She was seen and examined He was sitting up in his chair by the bed. Complained of worsening shortness of breath and cough. He denied any chest pain rales or diarrhea - Objective Vital Signs & Weight: Vital Signs (12 hours) Temp Pulse Resp BP Pulse Ox 05/30/20 16:53 98.5 F 100 20 103/68 91 L 05/30/20 12:00 98.6 F 86 20 103/61 95 05/30/20 10:14 100.7 F H 05/30/20 08:00 99.2 F 92 18 96/60 90 L 05/30/20 05:44 99.1 F 91 20 101/54 L 90 L Weight Weight 183 lb 4.8 oz I&O: 05/29/20 05/30/20 05/31/20 06:59 06:59 06:59 Intake Total 2390 2380 Output Total 600 900 Balance 1790 1480 Result Diagrams: 05/29/20 07:23 05/29/20 07:23 Hospitalist ROS - Review of Systems All other systems reviewed; all pertinent +/- noted in HPI/Subj - Medication Medications: Active Medications Generic Name Dose Route Start Last Admin Trade Name Freq PRN Reason Stop Dose Admin Acetaminophen 650 mg 05/23/20 14:17 05/30/20 10:14 Acetaminophen 325 Mg Tab PO 650 mg Q4H PRN Administration Headache/Fever/Mild Pain (1-3) Albuterol Sulfate 1 puff 05/25/20 23:43 05/30/20 05:00 Albuterol 200 Puff (6.7gm Inhaler) INH 1 puff Q8H PRN Administration Wheezing Ascorbic Acid 1,000 mg 05/26/20 09:00 05/30/20 08:38 Ascorbic Acid 500 Mg Chewable Tablet PO 1,000 mg DAILY ISABEL Administration Cholecalciferol 400 units 05/26/20 09:00 05/30/20 16:19 Cholecalciferol (Vitamin D3) 400 Units Tab PO 400 units DAILY ISABEL Administration Dexamethasone 6 mg 05/24/20 09:00 05/30/20 08:38 Dexamethasone 4 Mg/Ml Vial SLOW IVP 6 mg DAILY ISABEL Administration Enoxaparin Sodium 40 mg 05/23/20 21:00 05/30/20 08:39 Enoxaparin Sodium 40 Mg/0.4 Ml Syringe SC 40 mg 0900,2100 ISABEL Administration Guaifenesin/Codeine Phosphate 10 ml 05/28/20 11:54 05/30/20 15:22 Guaifenesin/Codeine Phosphate 200 Mg/20 Mg 10 Ml Ud Cup PO 10 ml Q6H PRN Administration Cough Ceftriaxone Sodium 1 gm/ 100 mls @ 200 mls/hr 05/24/20 16:00 05/30/20 15:14 Sodium Chloride IVPB 100 mls 1600 ISABEL Administration Azithromycin 500 mg/ Sodium 250 mls @ 250 mls/hr 05/24/20 17:00 05/30/20 16:19 Chloride IVPB 250 mls 1700 ISABEL Administration Throat Lozenges 1 aaliyah 05/28/20 11:54 05/28/20 15:19 Cepastat Lozenges 1 Aaliyah PO 1 aaliyah Q2H PRN Administration Sore Throat Zinc Sulfate 220 mg 05/26/20 09:00 05/30/20 08:39 Zinc Sulfate 220 Mg Cap PO 220 mg DAILY ISABEL Administration - Exam General Appearance: awake alert Eye: PERRL, anicteric sclera ENT: no oropharyngeal lesions Neck: supple, no JVD Heart: RRR, no murmur, no gallops, no rubs Respiratory - other findings: Scattered wheezes, reduced air entry bilaterally. Gastrointestinal: soft, non-tender, non-distended, normal bowel sounds Extremities: no cyanosis, no clubbing, no edema Neurological: cranial nerve grossly intact, no focal deficits Psychiatric: normal affect, normal behavior, A&O x 3 Hosp A/P - Plan This is a 50-year-old male patient with no significant past medical admitted on account of acute respiratory failure secondary to Covid pneumonia. Acute hypoxic respiratory failure The setting of Covid Currently on high flow oxygen Continue monitoring wean down oxygen as possible Pulmonology consult if worsens Pneumonia due to Covid Continue vitamin C and remdesivir Steroids on board ID following. VT prophylaxisLovenox CODE STATUSfull code
[2020-05-30] MEDS: REMDESIVIR (EUA) 100 MG in Sodium Chloride 0.9% 250 ML 230 ML IV SCH (18:22)
[2020-05-31] MEDS: Acetaminophen 325 MG TAB PO PRN ×2 (02:00→10:17)
[2020-05-31 08:16] LABS: Actual Bicarbonate (HCO3a) 21.7 mEq/L (22-28); Base Excess (BEa) 0.3 mEq/L (-2.0 to +3.0); CO2 Tension 27.3 mmHg (35.0-45.0); Carboxyhemoglobin (COHb) 0.8 gm% (0.0-3.0); Hemoglobin (Hb) 14.8 g/dL (14.0-18.0); Potassium - ABG Lab 4.02 mmol/L (3.70-5.30); pH, Arterial 7.52 (7.35-7.45)
[2020-05-31 08:17] LABS: Anion Gap 14 mmol/L (10-20); BUN (Urea Nitrogen) 11 mg/dL (8.9-20.6); Calc. Creatinine Clearance 148 mL/min (70-130); Calcium 7.8 mg/dL (7.8-10.44); Carbon Dioxide 23 mmol/L (22-29); Chloride 100 mmol/L (98-107); Glucose 89 mg/dL (70-105); Potassium 4.4 mmol/L (3.5-5.1); Sodium 133 mmol/L (136-145)
[2020-05-31 08:22] LABS: Hemoglobin 15.1 g/dL (14.0-18.0); Mean Corpuscular HGB CONC 33.6 g/dL (32.0-36.0); Mean Corpuscular Hemoglobin 30.6 pg (27.0-31.0); Mean Corpuscular Volume 90.9 fL (78.0-98.0); Platelet Count 280 thou/uL (130-400); RBC Distribution Width 12.5 % (11.5-14.5); Red Blood Cell (RBC) Count 4.93 mill/uL (4.70-6.10)
[2020-05-31 08:23] LABS: Band 13 % (5-11); Eosinophils 1 % (0-10); MDiff Complete? YES; Neutrophil 86 % (42-75)
[2020-05-31 08:24] LABS: O2 Tension (PaO2), arterial 45.9 mmHg (80.0-100.0); Puncture Site RRA
[2020-05-31 08:25] LABS: ALV-art Gradient 583.065 mmHg (0-20)
[2020-05-31] MEDS ORDERED: Propofol 1,000 MG/100 ML VIAL IV ONE (08:52)
[2020-05-31] MEDS ORDERED: Dexamethasone 4 mg/ml Vial SLOW IVP SCH (09:00)
[2020-05-31] MEDS ORDERED: Lorazepam 2 MG/ML VIAL ONE (09:10)
[2020-05-31 09:27] LABS: Actual Bicarbonate (HCO3a) 21.8 mEq/L (22-28); CO2 Tension 46.5 mmHg (35.0-45.0); Calcium, Ionized (arterial) 1.06 mmol/L (1.12-1.30); Carboxyhemoglobin (COHb) 0.7 gm% (0.0-3.0); Potassium - ABG Lab 4.21 mmol/L (3.70-5.30); pH, Arterial 7.29 (7.35-7.45)
[2020-05-31 09:30] LABS: O2 Tension (PaO2), arterial 35.6 mmHg (80.0-100.0)
[2020-05-31] MEDS ORDERED: Morphine 2 MG/ML VIAL SLOW IVP PRN (09:30)
[2020-05-31] MEDS ORDERED: Propofol BOLUS 1,000 MG/100 ML VIAL IV PRN (09:30)
[2020-05-31] MEDS: Vecuronium 10 MG VIAL IV PRN ×6 (09:30→22:29)
[2020-05-31] MEDS ORDERED: DISCONTINUE PREVIOUS NARCOTIC PAIN MEDICATIONS AND BENZODIAZEPINES FS SCH (09:30)
[2020-05-31] MEDS ORDERED: Fentanyl BOLUS 250 ML IVPB PRN (09:30)
[2020-05-31 09:31] LABS: Puncture Site RBA
[2020-05-31 09:32] LABS: ALV-art Gradient 619.275 mmHg (0-20)
[2020-05-31] MEDS: Enoxaparin Sodium 40 MG/0.4 ML SYRINGE SC SCH ×2 (09:33→20:02)
[2020-05-31] MEDS: fentaNYL Citrate/PF 2,000 MCG in Sodium Chloride 0.9% 60 ML IV SCH ×2 (09:34→21:45)
[2020-05-31] MEDS: Ascorbic Acid 500 mg Chewable Tablet PO SCH (10:17)
[2020-05-31] MEDS: Zinc Sulfate 220 MG CAP PO SCH (10:17)
[2020-05-31] MEDS: Lorazepam 2 MG/ML VIAL SLOW IVP PRN (10:43)
[2020-05-31 11:02] LABS: Actual Bicarbonate (HCO3a) 24.6 mEq/L (22-28); Analyzer IN Cardio ER; Base Excess (BEa) -5.4 mEq/L (-2.0 to +3.0); Carboxyhemoglobin (COHb) 0.2 gm% (0.0-3.0); Hemoglobin (Hb) 15.4 g/dL (14.0-18.0); Potassium - ABG Lab 4.26 mmol/L (3.70-5.30)
[2020-05-31 11:09] LABS: CO2 Tension 68.1 mmHg (35.0-45.0); pH, Arterial 7.18 (7.35-7.45)
[2020-05-31 11:10] LABS: ALV-art Gradient 570.875 mmHg (0-20); Puncture Site LRA
--- NOTE | 2020-05-31 11:45 | RAD ---
EXAM: Chest one view: HISTORY: Post intubation chest pain worsening shortness of breath COMPARISON: 05/23/2020 NG tube and endotracheal tubes in position. FINDINGS: Heart size: Within normal limits. Lungs: Marked worsening in the bilateral alveolar, interstitial, and groundglass opacity changes evid ence for worsening bilateral Covid pneumonia. IMPRESSION: Evidence for worsening bilateral Covid pneumonia with placement of NG tube and endotracheal tube.
[2020-05-31] MEDS: Cefepime 1 GM in Sodium Chloride 0.9% 100 ML IVPB SCH ×2 (12:38→23:09)
[2020-05-31] MEDS: Propofol 1,000 MG/100 ML VIAL IV PRN ×2 (12:39→18:40)
[2020-05-31] MEDS: Cholecalciferol (Vitamin D3) 400 UNITS TAB PO SCH (15:09)
[2020-05-31] MEDS: REMDESIVIR (EUA) 100 MG in Sodium Chloride 0.9% 250 ML 230 ML IV SCH (17:47)
--- NOTE | 2020-05-31 18:11 | PDOC.HOSPP ---
- Subjective Encounter Date: 05/31/20 Subjective: Patient was seen and examined in bed. He is in acute worsening of respiratory distress His ABG was indicated of worsening hypoxemia and had maxed out on high flow nasal cannula. Decision was made to transition him to CCU for intubation. - Objective Vital Signs & Weight: Vital Signs (12 hours) Pulse Resp BP Pulse Ox 05/31/20 16:00 28 H 05/31/20 14:47 83 80/64 L 05/31/20 14:00 28 H 05/31/20 12:00 28 H 05/31/20 10:38 122 H 150/82 H 05/31/20 10:00 24 H 97 05/31/20 09:29 124 H 05/31/20 06:15 84 28 H 90 L Weight Weight 183 lb 4.8 oz Most Recent Monitor Data Heart Rate from ECG 73 NIBP 93/62 NIBP BP-Mean 72 Respiration from ECG 28 SpO2 91 I&O: 05/30/20 05/31/20 06/01/20 06:59 06:59 06:59 Intake Total 2380 4560 300 Output Total 900 3500 1260 Balance 1480 1060 -960 Result Diagrams: 05/31/20 07:38 05/31/20 07:38 Hospitalist ROS - Review of Systems ROS unobtainable: due to endotracheal tube - Medication Medications: Active Medications Generic Name Dose Route Start Last Admin Trade Name Freq PRN Reason Stop Dose Admin Acetaminophen 650 mg 05/23/20 14:17 05/31/20 10:17 Acetaminophen 325 Mg Tab PO 650 mg Q4H PRN Administration Headache/Fever/Mild Pain (1-3) Albuterol Sulfate 1 puff 05/25/20 23:43 05/30/20 22:00 Albuterol 200 Puff (6.7gm Inhaler) INH 1 puff Q8H PRN Administration Wheezing Ascorbic Acid 1,000 mg 05/26/20 09:00 05/31/20 10:17 Ascorbic Acid 500 Mg Chewable Tablet PO 1,000 mg DAILY ISABEL Administration Cholecalciferol 400 units 05/26/20 09:00 05/31/20 15:09 Cholecalciferol (Vitamin D3) 400 Units Tab PO Not Given DAILY ISABEL Enoxaparin Sodium 40 mg 05/23/20 21:00 05/31/20 09:33 Enoxaparin Sodium 40 Mg/0.4 Ml Syringe SC 40 mg 0900,2100 ISABEL Administration Guaifenesin/Codeine Phosphate 10 ml 05/28/20 11:54 05/30/20 21:52 Guaifenesin/Codeine Phosphate 200 Mg/20 Mg 10 Ml Ud Cup PO 10 ml Q6H PRN Administration Cough Remdesivir 100 mg/ Sodium 250 mls @ 250 mls/hr 05/30/20 17:00 05/31/20 17:47 Chloride IV 06/02/20 17:59 250 mls 1700 ISABEL Administration Fentanyl Citrate 2,000 mcg/ 100 mls @ 0 mls/hr 05/31/20 09:30 05/31/20 09:34 Sodium Chloride IV 06/30/20 09:30 100 mls INF ISABEL Administration Protocol Per Protocol Cefepime HCl 1 gm/ Sodium 100 mls @ 200 mls/hr 05/31/20 12:00 05/31/20 12:38 Chloride IVPB 100 mls 1200,2359 ISABEL Administration Doxycycline Hyclate 100 mg/ 100 mls @ 100 mls/hr 05/31/20 13:00 05/31/20 13:20 Sodium Chloride IVPB 100 mls 0100,1300 ISABEL Administration Lorazepam 2 mg 05/31/20 09:30 05/31/20 10:43 Lorazepam 2 Mg/Ml Vial SLOW IVP 06/30/20 09:30 2 mg Q1H PRN Administration Breakthrough agitation Propofol 1,000 mg 05/31/20 09:30 05/31/20 12:39 Propofol 1,000 Mg/100 Ml Vial IV 06/30/20 09:30 1,000 mg INF PRN Administration TO ACHIEVE GOAL RASS Protocol Throat Lozenges 1 aaliyah 05/28/20 11:54 05/28/20 15:19 Cepastat Lozenges 1 Aaliyah PO 1 aaliyah Q2H PRN Administration Sore Throat Vecuronium [place] 10 mg 05/31/20 09:24 05/31/20 14:20 Vecuronium 10 Mg Vial IV 10 mg Q1H PRN Administration Anxiety/Agitation Zinc Sulfate 220 mg 05/26/20 09:00 05/31/20 10:17 Zinc Sulfate 220 Mg Cap PO 220 mg DAILY ISABEL Administration - Exam General Appearance: awake alert General - other findings: Severe respiratory distress Heart: RRR, no gallops, no rubs, normal peripheral pulses Respiratory - other findings: Generalized wheezing, reduced air entry bilaterally Gastrointestinal: soft, non-tender, non-distended, normal bowel sounds Extremities: no cyanosis, no clubbing, no edema Neurological: cranial nerve grossly intact, no focal deficits Psychiatric: A&O x 3 Psychiatric - other findings: Extremely anxious Hosp A/P - Plan This is a 50-year-old male patient with no significant past medical admitted on account of acute respiratory failure secondary to Covid pneumonia. This morning he maxed out on high flow and was in severe respiratory distress. Transition to ICU and intubated. Acute hypoxic respiratory failure The setting of Covid Currently intubated Appreciate pulmonology input. Pneumonia due to Covid Continue vitamin C and remdesivir Steroids on board ID following. VT prophylaxisLovenox CODE STATUSfull code
[2020-05-31] MEDS: Dexamethasone 4 mg/ml Vial SLOW IVP SCH (20:04)
[2020-06-01] MEDS: Vecuronium 10 MG VIAL IV PRN ×2 (01:40→04:53)
[2020-06-01] MEDS: Propofol 1,000 MG/100 ML VIAL IV PRN ×4 (01:40→20:27)
[2020-06-01] MEDS: Lorazepam 2 MG/ML VIAL SLOW IVP PRN (04:53)
[2020-06-01 05:51] LABS: #Lymphocytes 0.3 thou/uL (1.20-3.40); #Monocytes 0.1 thou/uL (0.11-0.59); #Neutrophils 10.8 thou/uL (1.40-6.50); %Eosinophils 0.1 % (0.0-10.0); %Lymphocytes 2.7 % (21.0-51.0); %Monocytes 1.1 % (0.0-10.0); %Neutrophils 96.2 % (42.0-75.0); Hemoglobin 12.7 g/dL (14.0-18.0); Mean Corpuscular HGB CONC 32.4 g/dL (32.0-36.0); Mean Corpuscular Hemoglobin 30.3 pg (27.0-31.0); Mean Corpuscular Volume 93.5 fL (78.0-98.0); Mean Platelet Volume 8.1 fL (7.4-10.4); Platelet Count 232 thou/uL (130-400); RBC Distribution Width 12.5 % (11.5-14.5); Red Blood Cell (RBC) Count 4.21 mill/uL (4.70-6.10); White Blood Cell (WBC) Count 11.2 thou/uL (4.8-10.8)
[2020-06-01 06:14] LABS: Anion Gap 12 mmol/L (10-20); BUN (Urea Nitrogen) 15 mg/dL (8.9-20.6); Calc. Creatinine Clearance 162 mL/min (70-130); Calcium 7.5 mg/dL (7.8-10.44); Carbon Dioxide 28 mmol/L (22-29); Chloride 104 mmol/L (98-107); Glucose 142 mg/dL (70-105); Potassium 5.1 mmol/L (3.5-5.1); Sodium 139 mmol/L (136-145)
--- NOTE | 2020-06-01 06:43 | CON ---
DATE OF CONSULTATION: HISTORY OF PRESENT ILLNESS: A 50-year-old English gentleman intubated in the vent, who has been in the hospital since 05/23/2020. He became progressively more short of breath this morning, requiring intubation. His sats on high-flow were markedly decreased. Temperature 100.4. He is intubated by Anesthesia. He is now in the ICU. Infectious Disease was consulted yesterday for the first time. He is now getting remdesivir. Healthy gentleman with no prior medical illness, presented 05/23 with shortness of breath. His saturations were 80% initially on room air, respiratory rate of 30, blood pressure 190/98, temperature 100.3. PAST MEDICAL HISTORY: History of hypertension. PREVIOUS SURGERY: Cholecystectomy. SOCIAL HISTORY: Alcohol, none. Tobacco, none. CHRONIC MEDICATION: None. PHYSICAL EXAMINATION: GENERAL: He is intubated. VITAL SIGNS: Temperature 98, blood pressure , respiratory rate of 18. CHEST: No wheezing. No crackles. CARDIAC: Sinus tach. ABDOMEN: Soft. No masses. LABORATORY DATA: His pO2 is 57, pCO2 is 68, pH of 7.18 on a bilevel rate of , low PEEP of 12. sodium 133. ASSESSMENT: 1. Acute on chronic respiratory failure. 2. Cook positive pneumonia. 3. Acute respiratory distress syndrome. PLAN: Convalescent plasma is initiated. Continue remdesivir. Continue high-dose steroids, empiric antibiotics. Prognosis remains guarded. We are going to prone him for 3 days. Start nutrition. Otherwise, all supportive care. Prognosis is guarded. This is a 45-minute critical care time. Job ID: [id number]
[2020-06-01 07:54] LABS: Actual Bicarbonate (HCO3a) 27.7 mEq/L (22-28); CO2 Tension 52.6 mmHg (35.0-45.0); Calcium, Ionized (arterial) 1.14 mmol/L (1.12-1.30); Carboxyhemoglobin (COHb) 0.4 gm% (0.0-3.0); Hemoglobin (Hb) 13.3 g/dL (14.0-18.0); Potassium - ABG Lab 5.07 mmol/L (3.70-5.30); pH, Arterial 7.34 (7.35-7.45)
[2020-06-01 07:56] LABS: Puncture Site RRA
[2020-06-01] MEDS: Dexamethasone 4 mg/ml Vial SLOW IVP SCH ×2 (08:29→19:49)
[2020-06-01] MEDS: Enoxaparin Sodium 40 MG/0.4 ML SYRINGE SC SCH ×2 (08:30→19:48)
[2020-06-01] MEDS: Zinc Sulfate 220 MG CAP PO SCH (08:30)
[2020-06-01] MEDS: Ascorbic Acid 500 mg Chewable Tablet PO SCH (08:30)
--- NOTE | 2020-06-01 09:06 | RAD ---
Chest one view HISTORY: Pneumonia. Follow-up. COMPARISON: 05/31/2020. FINDINGS: Cardiac silhouette is now more obscured by diffuse, dense airspace opacity throughout each lung. Bilateral air bronchograms. Hemidiaphragms mostly obscured. Mediastinum is midline. Lines and tubes unchanged in position. No evidence of pneumothorax. IMPRESSION : Continued worsening of diffuse dense infiltrate/ARDS.
[2020-06-01] MEDS: Cholecalciferol (Vitamin D3) 400 UNITS TAB PO SCH (09:09)
[2020-06-01] MEDS: fentaNYL Citrate/PF 2,000 MCG in Sodium Chloride 0.9% 60 ML IV SCH (11:03)
--- NOTE | 2020-06-01 11:38 | PRG ---
DATE OF SERVICE: 06/01/2020 SUBJECTIVE: A 50-year-old gentleman, intubated in the vent with holloway positive infection on bilevel. X-ray shows diffuse haziness and complete opacification of both lungs. I's and O's are positive. OBJECTIVE: VITAL SIGNS: His temperature is 97, pulse 66, blood pressure 94/69, respiratory rate 18. CHEST: No wheezing. No crackles. CARDIAC: Normal S1 and S2. No gallops. ABDOMEN: No masses. LABORATORY DATA: White count 11,000; H and H 12 and 37. His pO2 is 59, pCO2 is 50, pH 7.37, bilevel with a rate of 28, 100%, low PEEP of 12. Lytes are normal. C-reactive protein is 16.4. ASSESSMENT: Respiratory failure, holloway positive pneumonia. PLAN: He is not weanable. We are going to continue supportive care. High-dose steroids, remdesivir, plasma. One-half hour of critical care time. Job ID: [id number]
[2020-06-01] MEDS: Cefepime 1 GM in Sodium Chloride 0.9% 100 ML IVPB SCH (11:54)
--- NOTE | 2020-06-01 15:56 | PDOC.HOSPP ---
- Subjective Subjective: follow up respiratory failure/COVID PNA. s/p intubated on 05/31/20 - Objective Vital Signs & Weight: Vital Signs (12 hours) Temp Pulse Resp BP Pulse Ox 06/01/20 14:48 65 93/59 L 06/01/20 14:00 28 H 06/01/20 12:00 98.6 F 28 H 06/01/20 10:31 66 89/63 L 06/01/20 10:00 28 H 06/01/20 08:45 93 L 06/01/20 08:00 97.5 F L 06/01/20 07:09 65 87/56 L 06/01/20 06:00 28 H 06/01/20 04:00 97.0 F L 28 H Weight Admit Weight 183 lb 4.8 oz Weight 183 lb 4.8 oz Most Recent Monitor Data Heart Rate from ECG 64 NIBP 92/58 NIBP BP-Mean 69 Respiration from ECG 28 SpO2 100 I&O: 05/31/20 06/01/20 06/02/20 06:59 06:59 06:59 Intake Total 4560 826 200 Output Total 3500 2650 515 Balance 1060 -1824 -315 Result Diagrams: 06/01/20 05:45 06/01/20 05:45 Radiology Reviewed by me: Yes EKG Reviewed by me: Yes Hospitalist ROS - Medication Medications: Active Medications Generic Name Dose Route Start Last Admin Trade Name Freq PRN Reason Stop Dose Admin Acetaminophen 650 mg 05/23/20 14:17 05/31/20 10:17 Acetaminophen 325 Mg Tab PO 650 mg Q4H PRN Administration Headache/Fever/Mild Pain (1-3) Albuterol Sulfate 1 puff 05/25/20 23:43 05/30/20 22:00 Albuterol 200 Puff (6.7gm Inhaler) INH 1 puff Q8H PRN Administration Wheezing Ascorbic Acid 1,000 mg 05/26/20 09:00 06/01/20 08:30 Ascorbic Acid 500 Mg Chewable Tablet PO 1,000 mg DAILY ISABEL Administration Cholecalciferol 400 units 05/26/20 09:00 06/01/20 09:09 Cholecalciferol (Vitamin D3) 400 Units Tab PO 400 units DAILY ISABEL Administration Dexamethasone 10 mg 05/31/20 21:00 06/01/20 08:29 Dexamethasone 4 Mg/Ml Vial SLOW IVP 10 mg BID ISABEL Administration Enoxaparin Sodium 40 mg 05/23/20 21:00 06/01/20 08:30 Enoxaparin Sodium 40 Mg/0.4 Ml Syringe SC 40 mg 0900,2100 ISABEL Administration Guaifenesin/Codeine Phosphate 10 ml 05/28/20 11:54 05/30/20 21:52 Guaifenesin/Codeine Phosphate 200 Mg/20 Mg 10 Ml Ud Cup PO 10 ml Q6H PRN Administration Cough Remdesivir 100 mg/ Sodium 250 mls @ 250 mls/hr 05/30/20 17:00 05/31/20 17:47 Chloride IV 06/02/20 17:59 250 mls 1700 ISABEL Administration Fentanyl Citrate 2,000 mcg/ 100 mls @ 0 mls/hr 05/31/20 09:30 06/01/20 11:03 Sodium Chloride IV 06/30/20 09:30 100 mls INF ISABEL Administration Protocol Per Protocol Cefepime HCl 1 gm/ Sodium 100 mls @ 200 mls/hr 05/31/20 12:00 06/01/20 11:54 Chloride IVPB 100 mls 1200,2359 ISABEL Administration Doxycycline Hyclate 100 mg/ 100 mls @ 100 mls/hr 05/31/20 13:00 06/01/20 12:47 Sodium Chloride IVPB 100 mls 0100,1300 ISABEL Administration Lorazepam 2 mg 05/31/20 09:30 06/01/20 04:53 Lorazepam 2 Mg/Ml Vial SLOW IVP 06/30/20 09:30 2 mg Q1H PRN Administration Breakthrough agitation Propofol 1,000 mg 05/31/20 09:30 06/01/20 07:18 Propofol 1,000 Mg/100 Ml Vial IV 06/30/20 09:30 1,000 mg INF PRN Administration TO ACHIEVE GOAL RASS Protocol Throat Lozenges 1 aaliyah 05/28/20 11:54 05/28/20 15:19 Cepastat Lozenges 1 Aaliyah PO 1 aaliyah Q2H PRN Administration Sore Throat Vecuronium [place] 10 mg 05/31/20 09:24 06/01/20 04:53 Vecuronium 10 Mg Vial IV 10 mg Q1H PRN Administration Anxiety/Agitation Zinc Sulfate 220 mg 05/26/20 09:00 06/01/20 08:30 Zinc Sulfate 220 Mg Cap PO 220 mg DAILY ISABEL Administration - Exam General - other findings: intubated Eye: PERRL ENT: normocephalic atraumatic Neck: supple Heart: RRR, no murmur Respiratory: rhonchi Gastrointestinal: soft, non-tender Extremities: no cyanosis Skin: normal turgor Hosp A/P - Plan This is a 50-year-old male patient with no significant past medical admitted on account of acute respiratory failure secondary to Covid pneumonia. Acute respiratory failure secondary to COVID-19 pneumonia --Status post intubation on 05/31/2019 --pt is on maximum therapy for COVID-19 pneumonia treatments including Remdesivir, Decadron, and ancillary treatments with Vit C/D/Zinc --s/p convalescent plasma --Lovenox for DVT ppx --Pul/ID consulted, appreciate input. COVID-19 Pneumonia --mgt as above.
--- NOTE | 2020-06-01 16:35 | EKG ---
Test Reason : Blood Pressure : / mmHG Vent. Rate : 115 BPM Atrial Rate : 115 BPM P-R Int : 136 ms QRS Dur : 072 ms QT Int : 290 ms P-R-T Axes : 039 -23 033 degrees QTc Int : 401 ms Sinus tachycardia Possible Left atrial enlargement Borderline ECG Confirmed by ANAND Godinez, JASON ([id number]), website/blog editor DANNIE HODGES ([id number]) on 06/01/2020 4:35:38 PM Referred By: Confirmed By:JASON MICHEL M.D.
[2020-06-01] MEDS: REMDESIVIR (EUA) 100 MG in Sodium Chloride 0.9% 250 ML 230 ML IV SCH (18:18)
[2020-06-02] MEDS: Cefepime 1 GM in Sodium Chloride 0.9% 100 ML IVPB SCH ×3 (00:05→23:21)
[2020-06-02] MEDS: Propofol 1,000 MG/100 ML VIAL IV PRN ×5 (00:25→23:22)
[2020-06-02] MEDS: fentaNYL Citrate/PF 2,000 MCG in Sodium Chloride 0.9% 60 ML IV SCH ×2 (00:27→13:45)
[2020-06-02 04:42] LABS: #Lymphocytes 0.3 thou/uL (1.20-3.40); #Monocytes 0.2 thou/uL (0.11-0.59); #Neutrophils 9.4 thou/uL (1.40-6.50); %Basophils 0.1 % (0.0-1.0); %Eosinophils 0.1 % (0.0-10.0); %Lymphocytes 3.1 % (21.0-51.0); %Monocytes 1.6 % (0.0-10.0); Hemoglobin 13.2 g/dL (14.0-18.0); Mean Corpuscular HGB CONC 32.9 g/dL (32.0-36.0); Mean Corpuscular Hemoglobin 30.9 pg (27.0-31.0); Mean Corpuscular Volume 93.8 fL (78.0-98.0); Mean Platelet Volume 8.3 fL (7.4-10.4); Platelet Count 237 thou/uL (130-400); RBC Distribution Width 12.5 % (11.5-14.5); Red Blood Cell (RBC) Count 4.27 mill/uL (4.70-6.10); White Blood Cell (WBC) Count 9.9 thou/uL (4.8-10.8)
[2020-06-02] MEDS: Vecuronium 10 MG VIAL IV PRN ×2 (04:45→05:47)
[2020-06-02 04:57] LABS: Anion Gap 13 mmol/L (10-20); BUN (Urea Nitrogen) 24 mg/dL (8.9-20.6); Calc. Creatinine Clearance 140 mL/min (70-130); Calcium 7.7 mg/dL (7.8-10.44); Carbon Dioxide 29 mmol/L (22-29); Chloride 104 mmol/L (98-107); Glucose 174 mg/dL (70-105); Potassium 5.1 mmol/L (3.5-5.1); Sodium 141 mmol/L (136-145)
[2020-06-02 08:21] LABS: Actual Bicarbonate (HCO3a) 27.6 mEq/L (22-28); Base Excess (BEa) 1.8 mEq/L (-2.0 to +3.0); CO2 Tension 48.1 mmHg (35.0-45.0); Calcium, Ionized (arterial) 1.16 mmol/L (1.12-1.30); Carboxyhemoglobin (COHb) 0.2 gm% (0.0-3.0); O2 Tension (PaO2), arterial 127.4 mmHg (80.0-100.0); Potassium - ABG Lab 4.66 mmol/L (3.70-5.30); pH, Arterial 7.38 (7.35-7.45)
[2020-06-02 08:22] LABS: Puncture Site RRA
[2020-06-02 08:23] LABS: ALV-art Gradient 525.475 mmHg (0-20)
[2020-06-02] MEDS: Ascorbic Acid 500 mg Chewable Tablet PO SCH (09:11)
[2020-06-02] MEDS: Dexamethasone 4 mg/ml Vial SLOW IVP SCH ×2 (09:11→21:52)
[2020-06-02] MEDS: Enoxaparin Sodium 40 MG/0.4 ML SYRINGE SC SCH ×2 (09:12→21:54)
[2020-06-02] MEDS: Cholecalciferol (Vitamin D3) 400 UNITS TAB PO SCH (09:12)
[2020-06-02] MEDS: Zinc Sulfate 220 MG CAP PO SCH (09:13)
--- NOTE | 2020-06-02 09:39 | RAD ---
Chest one view HISTORY: Pneumonia. Follow-up. COMPARISON: 06/01/2020. FINDINGS: Cardiac silhouette remains predominantly obscured by dense widespread airspace disease. Mediastinum is midline. Lines and tubes unchanged in position. No evidence of pneumothorax. IMPRESSION : Diffuse, dense airspace disease and other findings are stable.
--- NOTE | 2020-06-02 10:53 | PRG ---
DATE OF SERVICE: 06/02/2020 SUBJECTIVE: 50-year-old gentleman, who was prone for 48 hours. X-ray still shows diffuse pulmonary infiltrates. OBJECTIVE: VITAL SIGNS: Saturations are 100% on bilevel, but he is on 100% FiO2, low PEEP of 12. Temperature 99, blood pressure rate of 18. CHEST: No wheezing. No crackles. CARDIAC: Normal S1, S2. ABDOMEN: No masses. LABORATORY DATA: White count 9000, H and H are stable. PO2 of 127, pCO2 of 40% . Lytes are normal. ASSESSMENT: Respiratory failure, holloway-positive pneumonia. PLAN: Bilevel is being adjusted. Dial the FiO2 down, low PEEP to 10. Otherwise, continue high-dose steroids, empiric antibiotics. One-half hour of critical are time. Job ID: [id number]
[2020-06-02] MEDS: REMDESIVIR (EUA) 100 MG in Sodium Chloride 0.9% 250 ML 230 ML IV SCH (17:10)
--- NOTE | 2020-06-02 18:14 | PDOC.HOSPP ---
- Subjective Subjective: pt remains intubated. no significant changes. - Objective Vital Signs & Weight: Vital Signs (12 hours) Temp Pulse Resp Pulse Ox 06/02/20 18:00 28 H 06/02/20 16:00 99.0 F 28 H 06/02/20 14:30 63 06/02/20 14:00 28 H 06/02/20 12:00 98.9 F 28 H 06/02/20 11:23 51 L 06/02/20 10:00 28 H 06/02/20 08:30 95 06/02/20 08:00 98.5 F 28 H 06/02/20 07:50 62 Weight Admit Weight 183 lb 4.8 oz Weight 183 lb 4.8 oz Most Recent Monitor Data Heart Rate from ECG 64 NIBP 114/74 NIBP BP-Mean 87 Respiration from ECG 28 SpO2 100 I&O: 06/01/20 06/02/20 06/03/20 06:59 06:59 06:59 Intake Total 826 1046.1 443.6 Output Total 2650 1605 850 Balance -1824 -558.9 -406.4 Result Diagrams: 06/02/20 03:20 06/02/20 03:20 Radiology Reviewed by me: Yes EKG Reviewed by me: Yes Hospitalist ROS - Medication Medications: Active Medications Generic Name Dose Route Start Last Admin Trade Name Freq PRN Reason Stop Dose Admin Acetaminophen 650 mg 05/23/20 14:17 05/31/20 10:17 Acetaminophen 325 Mg Tab PO 650 mg Q4H PRN Administration Headache/Fever/Mild Pain (1-3) Albuterol Sulfate 1 puff 05/25/20 23:43 05/30/20 22:00 Albuterol 200 Puff (6.7gm Inhaler) INH 1 puff Q8H PRN Administration Wheezing Ascorbic Acid 1,000 mg 05/26/20 09:00 06/02/20 09:11 Ascorbic Acid 500 Mg Chewable Tablet PO 1,000 mg DAILY ISABEL Administration Cholecalciferol 400 units 05/26/20 09:00 06/02/20 09:12 Cholecalciferol (Vitamin D3) 400 Units Tab PO 400 units DAILY ISABEL Administration Dexamethasone 10 mg 05/31/20 21:00 06/02/20 09:11 Dexamethasone 4 Mg/Ml Vial SLOW IVP 10 mg BID ISABEL Administration Enoxaparin Sodium 40 mg 05/23/20 21:00 06/02/20 09:12 Enoxaparin Sodium 40 Mg/0.4 Ml Syringe SC 40 mg 0900,2100 ISABEL Administration Guaifenesin/Codeine Phosphate 10 ml 05/28/20 11:54 05/30/20 21:52 Guaifenesin/Codeine Phosphate 200 Mg/20 Mg 10 Ml Ud Cup PO 10 ml Q6H PRN Administration Cough Fentanyl Citrate 2,000 mcg/ 100 mls @ 0 mls/hr 05/31/20 09:30 06/02/20 13:45 Sodium Chloride IV 06/30/20 09:30 100 mls INF ISABEL Administration Protocol Per Protocol Cefepime HCl 1 gm/ Sodium 100 mls @ 200 mls/hr 05/31/20 12:00 06/02/20 11:02 Chloride IVPB 100 mls 1200,2359 ISABEL Administration Doxycycline Hyclate 100 mg/ 100 mls @ 100 mls/hr 05/31/20 13:00 06/02/20 12:23 Sodium Chloride IVPB 100 mls 0100,1300 ISABEL Administration Lorazepam 2 mg 05/31/20 09:30 06/01/20 04:53 Lorazepam 2 Mg/Ml Vial SLOW IVP 06/30/20 09:30 2 mg Q1H PRN Administration Breakthrough agitation Propofol 1,000 mg 05/31/20 09:30 06/02/20 12:44 Propofol 1,000 Mg/100 Ml Vial IV 06/30/20 09:30 1,000 mg INF PRN Administration TO ACHIEVE GOAL RASS Protocol Throat Lozenges 1 aaliyah 05/28/20 11:54 05/28/20 15:19 Cepastat Lozenges 1 Aaliyah PO 1 alaiyah Q2H PRN Administration Sore Throat Vecuronium [place] 10 mg 05/31/20 09:24 06/02/20 05:47 Vecuronium 10 Mg Vial IV 10 mg Q1H PRN Administration Anxiety/Agitation Zinc Sulfate 220 mg 05/26/20 09:00 06/02/20 09:13 Zinc Sulfate 220 Mg Cap PO 220 mg DAILY ISABEL Administration - Exam General - other findings: intubated Eye: PERRL ENT: normocephalic atraumatic Neck: supple Heart: RRR, diminshed peripheral pulses Respiratory: no wheezes, normal percussion, rales Gastrointestinal: soft Extremities: no cyanosis Skin: normal turgor Hosp A/P - Plan This is a 50-year-old male patient with no significant past medical admitted for acute respiratory failure secondary to Covid pneumonia. Acute respiratory failure secondary to COVID-19 pneumonia --Status post intubation on 05/31/2019 --pt is on maximum therapy for COVID-19 pneumonia treatments including Remdesivir, Decadron, and ancillary treatments with Vit C/D/Zinc --s/p convalescent plasma --Lovenox for DVT ppx --Pul/ID consulted, appreciate input. --cont supportive cares COVID-19 Pneumonia --mgt as above.
[2020-06-02] MEDS ORDERED: Sodium Chloride 0.9% 1,000 ML IV SCH (18:30)
[2020-06-03] MEDS: fentaNYL Citrate/PF 2,000 MCG in Sodium Chloride 0.9% 60 ML IV SCH ×2 (02:22→12:51)
[2020-06-03 04:46] LABS: Hemoglobin 14.2 g/dL (14.0-18.0); Mean Platelet Volume 8.5 fL (7.4-10.4); RBC Distribution Width 12.3 % (11.5-14.5)
[2020-06-03 05:04] LABS: Anion Gap 14 mmol/L (10-20); BUN (Urea Nitrogen) 24 mg/dL (8.9-20.6); Calc. Creatinine Clearance 140 mL/min (70-130); Calcium 7.7 mg/dL (7.8-10.44); Carbon Dioxide 28 mmol/L (22-29); Chloride 103 mmol/L (98-107); Glucose 201 mg/dL (70-105); Potassium 4.8 mmol/L (3.5-5.1); Sodium 140 mmol/L (136-145)
[2020-06-03 05:08] LABS: #Basophils 0.1 thou/uL (0.0-0.2); #Lymphocytes 0.3 thou/uL (1.20-3.40); #Monocytes 0.3 thou/uL (0.11-0.59); #Neutrophils 10.4 thou/uL (1.40-6.50); %Basophils 0.6 % (0.0-1.0); %Eosinophils 0.1 % (0.0-10.0); %Lymphocytes 2.8 % (21.0-51.0); %Monocytes 2.4 % (0.0-10.0); %Neutrophils 94.1 % (42.0-75.0); Mean Corpuscular Hemoglobin 28.7 pg (27.0-31.0); Mean Corpuscular Volume 92.6 fL (78.0-98.0); Platelet Count 237 thou/uL (130-400); Red Blood Cell (RBC) Count 4.94 mill/uL (4.70-6.10); White Blood Cell (WBC) Count 11.1 thou/uL (4.8-10.8)
[2020-06-03] MEDS: Propofol 1,000 MG/100 ML VIAL IV PRN ×3 (05:59→17:43)
[2020-06-03] MEDS: Ascorbic Acid 500 mg Chewable Tablet PO SCH (08:18)
[2020-06-03] MEDS: Dexamethasone 4 mg/ml Vial SLOW IVP SCH (08:18)
[2020-06-03] MEDS: Zinc Sulfate 220 MG CAP PO SCH (08:19)
[2020-06-03] MEDS: Cholecalciferol (Vitamin D3) 400 UNITS TAB PO SCH (08:19)
[2020-06-03] MEDS: Enoxaparin Sodium 40 MG/0.4 ML SYRINGE SC SCH ×2 (08:19→20:19)
--- NOTE | 2020-06-03 08:41 | RAD ---
PORTABLE CHEST: HISTORY: Followup COVID pneumonia. COMPARISON: Prior day's exam. FINDINGS: Endotracheal and NG tubes are in satisfactory position. Bilateral lung infiltrates are stable. IMPRESSION: Stable exam. POS: OFF
[2020-06-03 09:19] LABS: Actual Bicarbonate (HCO3a) 26.4 mEq/L (22-28); Base Excess (BEa) -0.7 mEq/L (-2.0 to +3.0); CO2 Tension 51.1 mmHg (35.0-45.0); Calcium, Ionized (arterial) 1.18 mmol/L (1.12-1.30); Carboxyhemoglobin (COHb) 0.3 gm% (0.0-3.0); O2 Tension (PaO2), arterial 64.4 mmHg (80.0-100.0); pH, Arterial 7.33 (7.35-7.45)
[2020-06-03 09:25] LABS: Puncture Site LRA
[2020-06-03 09:27] LABS: ALV-art Gradient 442.125 mmHg (0-20)
--- NOTE | 2020-06-03 09:40 | PRG ---
DATE OF SERVICE: 06/03/2020 SUBJECTIVE: He was prone for 48 hours. His x-ray still shows diffuse pulmonary infiltrates. OBJECTIVE: VITAL SIGNS: Temperature 97, pulse 51, blood pressure 93/64, respiratory rate 18. CHEST: No wheezing. No crackles. CARDIAC: Normal S1, S2. ABDOMEN: No masses. IMAGING DATA: X-ray, diffuse pulmonary infiltrates. LABORATORY DATA: White count 11,000. ASSESSMENT: Cook positive pneumonia, respiratory failure. Continue remdesivir. Continue steroids, antibiotics. We will prone him again tomorrow for another 24 to 48 hours. Prognosis remains guarded. One-half hour of critical care time. Job ID: [id number]
[2020-06-03] MEDS: Cefepime 1 GM in Sodium Chloride 0.9% 100 ML IVPB SCH ×2 (11:32→23:13)
--- NOTE | 2020-06-03 17:52 | PDOC.HOSPP ---
- Subjective Subjective: remains intubated. no significant changes. dw nursing staff. pt was seen and examined at bedside - Objective Vital Signs & Weight: Vital Signs (12 hours) Temp Pulse Resp BP Pulse Ox 06/03/20 16:00 28 H 06/03/20 15:25 50 L 96/63 06/03/20 14:00 28 H 06/03/20 12:40 51 L 94/62 06/03/20 12:00 28 H 06/03/20 11:30 51 L 95/61 06/03/20 10:00 28 H 06/03/20 09:00 97.3 F L 06/03/20 08:46 51 L 96/66 06/03/20 08:00 95 06/03/20 06:00 28 H Weight Admit Weight 183 lb 4.8 oz Weight 183 lb 4.8 oz Most Recent Monitor Data Heart Rate from ECG 49 NIBP 100/65 NIBP BP-Mean 76 Respiration from ECG 28 SpO2 93 I&O: 06/02/20 06/03/20 06/04/20 06:59 06:59 06:59 Intake Total 1046.1 1331.6 503 Output Total 1605 1530 615 Balance -558.9 -198.4 -112 Result Diagrams: 06/03/20 03:55 06/03/20 03:30 Radiology Reviewed by me: Yes EKG Reviewed by me: Yes Hospitalist ROS - Medication Medications: Active Medications Generic Name Dose Route Start Last Admin Trade Name Freq PRN Reason Stop Dose Admin Acetaminophen 650 mg 05/23/20 14:17 05/31/20 10:17 Acetaminophen 325 Mg Tab PO 650 mg Q4H PRN Administration Headache/Fever/Mild Pain (1-3) Albuterol Sulfate 1 puff 05/25/20 23:43 05/30/20 22:00 Albuterol 200 Puff (6.7gm Inhaler) INH 1 puff Q8H PRN Administration Wheezing Ascorbic Acid 1,000 mg 05/26/20 09:00 06/03/20 08:18 Ascorbic Acid 500 Mg Chewable Tablet PO 1,000 mg DAILY ISABEL Administration Cholecalciferol 400 units 05/26/20 09:00 06/03/20 08:19 Cholecalciferol (Vitamin D3) 400 Units Tab PO 400 units DAILY ISABEL Administration Enoxaparin Sodium 40 mg 05/23/20 21:00 06/03/20 08:19 Enoxaparin Sodium 40 Mg/0.4 Ml Syringe SC 40 mg 0900,2100 ISABEL Administration Guaifenesin/Codeine Phosphate 10 ml 05/28/20 11:54 05/30/20 21:52 Guaifenesin/Codeine Phosphate 200 Mg/20 Mg 10 Ml Ud Cup PO 10 ml Q6H PRN Administration Cough Fentanyl Citrate 2,000 mcg/ 100 mls @ 0 mls/hr 05/31/20 09:30 06/03/20 12:51 Sodium Chloride IV 06/30/20 09:30 100 mls INF ISABEL Administration Protocol Per Protocol Cefepime HCl 1 gm/ Sodium 100 mls @ 200 mls/hr 05/31/20 12:00 06/03/20 11:32 Chloride IVPB 100 mls 1200,2359 ISABEL Administration Doxycycline Hyclate 100 mg/ 100 mls @ 100 mls/hr 05/31/20 13:00 06/03/20 13:29 Sodium Chloride IVPB 100 mls 0100,1300 ISABEL Administration Lorazepam 2 mg 05/31/20 09:30 06/01/20 04:53 Lorazepam 2 Mg/Ml Vial SLOW IVP 06/30/20 09:30 2 mg Q1H PRN Administration Breakthrough agitation Propofol 1,000 mg 05/31/20 09:30 06/03/20 17:43 Propofol 1,000 Mg/100 Ml Vial IV 06/30/20 09:30 1,000 mg INF PRN Administration TO ACHIEVE GOAL RASS Protocol Throat Lozenges 1 aaliyah 05/28/20 11:54 05/28/20 15:19 Cepastat Lozenges 1 Aaliyah PO 1 aaliyah Q2H PRN Administration Sore Throat Vecuronium [place] 10 mg 05/31/20 09:24 06/02/20 05:47 Vecuronium 10 Mg Vial IV 10 mg Q1H PRN Administration Anxiety/Agitation Zinc Sulfate 220 mg 05/26/20 09:00 06/03/20 08:19 Zinc Sulfate 220 Mg Cap PO 220 mg DAILY ISABEL Administration - Exam General - other findings: intubated and sedated Eye: PERRL ENT: normocephalic atraumatic Neck: supple Heart: RRR, no murmur Respiratory: CTAB, no wheezes Gastrointestinal: soft, non-tender Extremities: no cyanosis, 1+ LE edema Musculoskeletal: normal tone Hosp A/P - Plan This is a 50-year-old male patient with no significant past medical admitted for acute respiratory failure secondary to Covid pneumonia. Acute respiratory failure secondary to COVID-19 pneumonia --Status post intubation on 05/31/2019 --pt is on maximum therapy for COVID-19 pneumonia treatments including Remdesivir, Decadron, and ancillary treatments with Vit C/D/Zinc --s/p convalescent plasma --Lovenox for DVT ppx --Pul/ID consulted, appreciate input. --cont supportive cares --palliative care consult COVID-19 Pneumonia --mgt as above.
[2020-06-03] MEDS ORDERED: Dextrose 50% Abboject 50 ML SYRINGE IVP PRN (18:45)
[2020-06-03] MEDS ORDERED: Dextrose 5% in Water 1,000 ML IV PRN (18:45)
[2020-06-03] MEDS: HumaLOG 300 UNITS/3 ML VIAL SC PRN ×2 (18:56→23:14)
[2020-06-03] MEDS: Lorazepam 2 MG/ML VIAL SLOW IVP PRN (18:56)
[2020-06-03] MEDS: Dexamethasone 10 MG/ML VIAL SLOW IVP SCH (20:19)
[2020-06-03] MEDS: Famotidine/PF 20 mg/2ml Vial SLOW IVP SCH (20:19)
[2020-06-03] MEDS ORDERED: Propofol 1,000 MG/100 ML VIAL IV ONE (23:52)
[2020-06-04] MEDS: fentaNYL Citrate/PF 2,000 MCG in Sodium Chloride 0.9% 60 ML IV SCH ×2 (01:03→15:43)
[2020-06-04 04:29] LABS: #Lymphocytes 0.3 thou/uL (1.20-3.40); #Monocytes 0.4 thou/uL (0.11-0.59); #Neutrophils 7.2 thou/uL (1.40-6.50); %Basophils 0.5 % (0.0-1.0); %Eosinophils 0.2 % (0.0-10.0); %Monocytes 4.4 % (0.0-10.0); Hemoglobin 13.2 g/dL (14.0-18.0); Mean Corpuscular HGB CONC 33.1 g/dL (32.0-36.0); Mean Corpuscular Hemoglobin 30.7 pg (27.0-31.0); Mean Corpuscular Volume 92.7 fL (78.0-98.0); Platelet Count 189 thou/uL (130-400); RBC Distribution Width 12.2 % (11.5-14.5); Red Blood Cell (RBC) Count 4.29 mill/uL (4.70-6.10)
[2020-06-04 04:49] LABS: Anion Gap 9 mmol/L (10-20); BUN (Urea Nitrogen) 23 mg/dL (8.9-20.6); Calc. Creatinine Clearance 160 mL/min (70-130); Calcium 7.5 mg/dL (7.8-10.44); Carbon Dioxide 30 mmol/L (22-29); Chloride 103 mmol/L (98-107); Glucose 222 mg/dL (70-105); Potassium 4.8 mmol/L (3.5-5.1); Sodium 137 mmol/L (136-145)
[2020-06-04] MEDS: Propofol 1,000 MG/100 ML VIAL IV PRN ×2 (05:59→08:59)
[2020-06-04 08:31] LABS: Base Excess (BEa) 1.9 mEq/L (-2.0 to +3.0); CO2 Tension 49.7 mmHg (35.0-45.0); Calcium, Ionized (arterial) 1.13 mmol/L (1.12-1.30); Carboxyhemoglobin (COHb) 0.5 gm% (0.0-3.0); Hemoglobin (Hb) 13.7 g/dL (14.0-18.0); O2 Tension (PaO2), arterial 87.3 mmHg (80.0-100.0); Potassium - ABG Lab 4.66 mmol/L (3.70-5.30); pH, Arterial 7.37 (7.35-7.45)
[2020-06-04 08:32] LABS: ALV-art Gradient 420.975 mmHg (0-20); Puncture Site RRA
[2020-06-04] MEDS ORDERED: Dexamethasone 10 MG/ML VIAL ONE (08:52)
[2020-06-04] MEDS: Famotidine/PF 20 mg/2ml Vial SLOW IVP SCH ×2 (08:59→20:34)
[2020-06-04] MEDS: Dexamethasone 10 MG/ML VIAL SLOW IVP SCH ×2 (08:59→20:35)
[2020-06-04] MEDS: Ascorbic Acid 500 mg Chewable Tablet PO SCH (08:59)
[2020-06-04] MEDS: Cholecalciferol (Vitamin D3) 400 UNITS TAB PO SCH (08:59)
[2020-06-04] MEDS: Enoxaparin Sodium 40 MG/0.4 ML SYRINGE SC SCH ×2 (09:00→20:34)
[2020-06-04] MEDS: Zinc Sulfate 220 MG CAP PO SCH (09:00)
[2020-06-04] MEDS: Cefepime 1 GM in Sodium Chloride 0.9% 100 ML IVPB SCH ×2 (10:41→23:19)
--- NOTE | 2020-06-04 11:07 | PRG ---
DATE OF SERVICE: 06/04/2020 SUBJECTIVE: Intubated on the vent. OBJECTIVE: VITAL SIGNS: Pulse is 51, blood pressure 140/80, sats 100%, . I's and O's have been good. CHEST: No wheezing. No crackles. CARDIAC: Normal S1, S2. No gallops. ABDOMEN: No masses. LABORATORY DATA: White count 8000 . Lytes are normal. ASSESSMENT: Cook positive pneumonia, respiratory failure, diffuse infiltrates. PLAN: Slowly decrease FiO2, sats are better. Avoiding proning today. One-half hour of critical care time. Job ID: [id number]
[2020-06-04] MEDS: HumaLOG 300 UNITS/3 ML VIAL SC PRN ×3 (12:20→20:35)
[2020-06-04] MEDS: Lorazepam 2 MG/ML VIAL SLOW IVP PRN ×2 (13:06→20:34)
--- NOTE | 2020-06-04 18:40 | PDOC.HOSPP ---
- Subjective Subjective: remains intubated, oxygenation improved. vent setting decr by pul no fever. - Objective Vital Signs & Weight: Vital Signs (12 hours) Temp Pulse Resp BP Pulse Ox 06/04/20 18:00 24 H 06/04/20 16:00 24 H 06/04/20 14:26 54 L 104/60 06/04/20 14:00 24 H 06/04/20 12:00 24 H 06/04/20 11:13 72 134/85 06/04/20 10:00 24 H 06/04/20 08:03 49 L 99/56 L 06/04/20 08:00 97.1 F L 28 H 100 Weight Admit Weight 183 lb 4.8 oz Weight 183 lb 4.8 oz Most Recent Monitor Data Heart Rate from ECG 63 NIBP 132/79 NIBP BP-Mean 96 Respiration from ECG 25 SpO2 97 I&O: 06/03/20 06/04/20 06/05/20 06:59 06:59 06:59 Intake Total 1331.6 1776.3 1005 Output Total 1530 1465 870 Balance -198.4 311.3 135 Result Diagrams: 06/04/20 04:10 06/04/20 04:10 Additional Labs: Accuchecks 06/04/20 06/03/20 06/03/20 12:16 23:03 18:44 POC Glucose 212 H 196 H 211 H Radiology Reviewed by me: Yes EKG Reviewed by me: Yes Hospitalist ROS - Medication Medications: Active Medications Generic Name Dose Route Start Last Admin Trade Name Freq PRN Reason Stop Dose Admin Acetaminophen 650 mg 05/23/20 14:17 05/31/20 10:17 Acetaminophen 325 Mg Tab PO 650 mg Q4H PRN Administration Headache/Fever/Mild Pain (1-3) Albuterol Sulfate 1 puff 05/25/20 23:43 05/30/20 22:00 Albuterol 200 Puff (6.7gm Inhaler) INH 1 puff Q8H PRN Administration Wheezing Ascorbic Acid 1,000 mg 05/26/20 09:00 06/04/20 08:59 Ascorbic Acid 500 Mg Chewable Tablet PO 1,000 mg DAILY ISABEL Administration Cholecalciferol 400 units 05/26/20 09:00 06/04/20 08:59 Cholecalciferol (Vitamin D3) 400 Units Tab PO 400 units DAILY ISABEL Administration Dexamethasone 10 mg 06/03/20 21:00 06/04/20 08:59 Dexamethasone 10 Mg/Ml Vial SLOW IVP 10 mg BID ISABEL Administration Enoxaparin Sodium 40 mg 05/23/20 21:00 06/04/20 09:00 Enoxaparin Sodium 40 Mg/0.4 Ml Syringe SC 40 mg 0900,2100 ISABEL Administration Famotidine 20 mg 06/03/20 21:00 06/04/20 08:59 Famotidine/Pf 20 Mg/2ml Vial SLOW IVP 20 mg Q12HR ISABEL Administration Guaifenesin/Codeine Phosphate 10 ml 05/28/20 11:54 05/30/20 21:52 Guaifenesin/Codeine Phosphate 200 Mg/20 Mg 10 Ml Ud Cup PO 10 ml Q6H PRN Administration Cough Fentanyl Citrate 2,000 mcg/ 100 mls @ 0 mls/hr 05/31/20 09:30 06/04/20 15:43 Sodium Chloride IV 06/30/20 09:30 100 mls INF ISABEL Administration Protocol Per Protocol Cefepime HCl 1 gm/ Sodium 100 mls @ 200 mls/hr 05/31/20 12:00 06/04/20 10:41 Chloride IVPB 100 mls 1200,2359 ISABEL Administration Doxycycline Hyclate 100 mg/ 100 mls @ 100 mls/hr 05/31/20 13:00 06/04/20 12:05 Sodium Chloride IVPB 100 mls 0100,1300 ISABEL Administration Insulin Human Lispro 0 units 06/03/20 18:45 06/04/20 18:35 Humalog 300 Units/3 Ml Vial SC 3 unit .MILD SLIDING SCALE PRN Administration MILD SLIDING SCALE Protocol Lorazepam 2 mg 05/31/20 09:30 06/04/20 13:06 Lorazepam 2 Mg/Ml Vial SLOW IVP 06/30/20 09:30 2 mg Q1H PRN Administration Breakthrough agitation Propofol 1,000 mg 05/31/20 09:30 06/04/20 08:59 Propofol 1,000 Mg/100 Ml Vial IV 06/30/20 09:30 1,000 mg INF PRN Administration TO ACHIEVE GOAL RASS Protocol Throat Lozenges 1 aaliyah 05/28/20 11:54 05/28/20 15:19 Cepastat Lozenges 1 Aaliyah PO 1 aaliyah Q2H PRN Administration Sore Throat Vecuronium [place] 10 mg 05/31/20 09:24 06/02/20 05:47 Vecuronium 10 Mg Vial IV 10 mg Q1H PRN Administration Anxiety/Agitation Zinc Sulfate 220 mg 05/26/20 09:00 06/04/20 09:00 Zinc Sulfate 220 Mg Cap PO Not Given DAILY ISABEL - Exam General - other findings: intubated. Eye: PERRL ENT: normocephalic atraumatic Neck: supple Respiratory: rhonchi Gastrointestinal: soft Extremities: no cyanosis Skin: normal turgor Neurological: cranial nerve grossly intact Musculoskeletal: normal tone Psychiatric: normal affect Hosp A/P - Plan This is a 50-year-old male patient with no significant past medical admitted for acute respiratory failure secondary to Covid pneumonia. Acute respiratory failure secondary to COVID-19 pneumonia --Status post intubation on 05/31/2019 --pt is on maximum therapy for COVID-19 pneumonia treatments including Remdesivir, Decadron, and ancillary treatments with Vit C/D/Zinc --s/p convalescent plasma --Lovenox for DVT ppx --Pul/ID consulted, appreciate input. --cont supportive cares --palliative care consult appreciated COVID-19 Pneumonia --mgt as above. Hyperglycemia - pt is on steroid --check A1C, add Lantus, cont ISS
[2020-06-04] MEDS: Insulin Glargine 10 UNITS in Pre-Filled Syringe 1 EACH SC SCH (20:34)
[2020-06-05] MEDS: Propofol 1,000 MG/100 ML VIAL IV PRN ×4 (00:10→12:34)
[2020-06-05] MEDS: Lorazepam 2 MG/ML VIAL SLOW IVP PRN ×3 (00:53→23:52)
[2020-06-05] MEDS: HumaLOG 300 UNITS/3 ML VIAL SC PRN ×3 (04:14→20:05)
[2020-06-05 04:25] LABS: Anion Gap 12 mmol/L (10-20); BUN (Urea Nitrogen) 20 mg/dL (8.9-20.6); Calc. Creatinine Clearance 165 mL/min (70-130); Calcium 7.1 mg/dL (7.8-10.44); Carbon Dioxide 27 mmol/L (22-29); Chloride 102 mmol/L (98-107); Glucose 238 mg/dL (70-105); Potassium 5.2 mmol/L (3.5-5.1); Sodium 136 mmol/L (136-145)
[2020-06-05 04:26] LABS: Hemoglobin A1c 6.9 % (4.0-6.0)
[2020-06-05] MEDS ORDERED: Dexamethasone 10 MG/ML VIAL ONE (07:38)
[2020-06-05 07:46] LABS: #Lymphocytes 0.3 thou/uL (1.20-3.40); #Monocytes 0.3 thou/uL (0.11-0.59); #Neutrophils 8.3 thou/uL (1.40-6.50); %Eosinophils 0.2 % (0.0-10.0); %Lymphocytes 3.4 % (21.0-51.0); %Monocytes 3.5 % (0.0-10.0); Hemoglobin 13.1 g/dL (14.0-18.0); MDiff Complete? YES; Mean Corpuscular Hemoglobin 30.3 pg (27.0-31.0); Mean Corpuscular Volume 91.6 fL (78.0-98.0); Mean Platelet Volume 9.5 fL (7.4-10.4); Platelet Clumps MARKED; Platelet Morphology Comment PLT clumps seen-ADEQ; RBC Distribution Width 12.2 % (11.5-14.5); Red Blood Cell (RBC) Count 4.34 mill/uL (4.70-6.10); White Blood Cell (WBC) Count 8.9 thou/uL (4.8-10.8)
[2020-06-05] MEDS: Famotidine/PF 20 mg/2ml Vial SLOW IVP SCH ×2 (08:43→19:14)
[2020-06-05] MEDS: Cholecalciferol (Vitamin D3) 400 UNITS TAB PO SCH (08:43)
[2020-06-05] MEDS: Ascorbic Acid 500 mg Chewable Tablet PO SCH (08:43)
[2020-06-05] MEDS: Enoxaparin Sodium 40 MG/0.4 ML SYRINGE SC SCH ×2 (08:43→19:14)
[2020-06-05] MEDS: Dexamethasone 10 MG/ML VIAL SLOW IVP SCH ×2 (08:43→19:15)
[2020-06-05 08:54] LABS: Actual Bicarbonate (HCO3a) 29.3 mEq/L (22-28); Base Excess (BEa) 3.2 mEq/L (-2.0 to +3.0); CO2 Tension 49.4 mmHg (35.0-45.0); Calcium, Ionized (arterial) 1.12 mmol/L (1.12-1.30); Carboxyhemoglobin (COHb) 0.6 gm% (0.0-3.0); Hemoglobin (Hb) 17.4 g/dL (14.0-18.0); O2 Tension (PaO2), arterial 76.2 mmHg (80.0-100.0); pH, Arterial 7.39 (7.35-7.45)
[2020-06-05] MEDS: Zinc Sulfate 220 MG CAP PO SCH (09:01)
[2020-06-05 09:06] LABS: Puncture Site RRA
--- NOTE | 2020-06-05 09:33 | PRG ---
DATE OF SERVICE: 06/05/2020 SUBJECTIVE: Intubated in the vent, sedated. OBJECTIVE: VITAL SIGNS: Temperature 96, pulse rate 60, respiratory rate 18, blood pressure . CHEST: No wheezing. No crackles. CARDIAC: Normal S1, S2. ABDOMEN: No masses. LABORATORY DATA: White count 8000. Creatinine normal. Lytes are normal. ASSESSMENT AND PLAN: Cook positive pneumonia, slowly improving. Continue Decadron. Continue antibiotics. Decrease FiO2 to 50%. Slow weaning. Nutrition, PT. One-half hour of critical care time. Job ID: [id number]
[2020-06-05] MEDS: fentaNYL Citrate/PF 2,000 MCG in Sodium Chloride 0.9% 60 ML IV SCH (10:13)
[2020-06-05] MEDS: Cefepime 1 GM in Sodium Chloride 0.9% 100 ML IVPB SCH ×2 (11:07→23:51)
[2020-06-05] MEDS ORDERED: Polyethylene Glycol 3350 17 GM Packet PO PRN (11:42)
[2020-06-05] MEDS ORDERED: Docusate 100 MG CAP PO PRN (11:42)
[2020-06-05] MEDS ORDERED: Bisacodyl 10 MG SUPP PR PRN (11:42)
--- NOTE | 2020-06-05 18:49 | PDOC.HOSPP ---
- Subjective Subjective: oxygenation improved. vent setting went down. Pt was seen and examined at bedside. d/w nursing staff. - Objective Vital Signs & Weight: Vital Signs (12 hours) Temp Pulse Resp BP Pulse Ox 06/05/20 18:00 24 H 06/05/20 16:00 24 H 06/05/20 14:16 63 99/62 06/05/20 14:00 24 H 06/05/20 13:02 59 L 105/65 06/05/20 12:00 24 H 06/05/20 10:56 62 101/63 06/05/20 10:00 24 H 06/05/20 08:00 24 H 99 06/05/20 07:53 56 L 96/51 L 06/05/20 07:00 96.0 F L Weight Admit Weight 183 lb 4.8 oz Weight 171 lb 1.259 oz Most Recent Monitor Data Heart Rate from ECG 59 NIBP 100/62 NIBP BP-Mean 74 Respiration from ECG 24 SpO2 98 I&O: 06/04/20 06/05/20 06/06/20 06:59 06:59 06:59 Intake Total 1776.3 2346 1085 Output Total 1465 1840 755 Balance 311.3 506 330 Result Diagrams: 06/05/20 04:01 06/05/20 04:01 Additional Labs: Accuchecks 06/05/20 06/05/20 06/04/20 10:22 03:44 20:27 POC Glucose 118 H 207 H 191 H Hospitalist ROS - Medication Medications: Active Medications Generic Name Dose Route Start Last Admin Trade Name Freq PRN Reason Stop Dose Admin Acetaminophen 650 mg 05/23/20 14:17 05/31/20 10:17 Acetaminophen 325 Mg Tab PO 650 mg Q4H PRN Administration Headache/Fever/Mild Pain (1-3) Albuterol Sulfate 1 puff 05/25/20 23:43 05/30/20 22:00 Albuterol 200 Puff (6.7gm Inhaler) INH 1 puff Q8H PRN Administration Wheezing Ascorbic Acid 1,000 mg 05/26/20 09:00 06/05/20 08:43 Ascorbic Acid 500 Mg Chewable Tablet PO 1,000 mg DAILY ISABEL Administration Cholecalciferol 400 units 05/26/20 09:00 06/05/20 08:43 Cholecalciferol (Vitamin D3) 400 Units Tab PO 400 units DAILY ISABEL Administration Dexamethasone 10 mg 06/03/20 21:00 06/05/20 08:43 Dexamethasone 10 Mg/Ml Vial SLOW IVP 10 mg BID ISABEL Administration Enoxaparin Sodium 40 mg 05/23/20 21:00 06/05/20 08:43 Enoxaparin Sodium 40 Mg/0.4 Ml Syringe SC 40 mg 0900,2100 ISABEL Administration Famotidine 20 mg 06/03/20 21:00 06/05/20 08:43 Famotidine/Pf 20 Mg/2ml Vial SLOW IVP 20 mg Q12HR ISABEL Administration Guaifenesin/Codeine Phosphate 10 ml 05/28/20 11:54 05/30/20 21:52 Guaifenesin/Codeine Phosphate 200 Mg/20 Mg 10 Ml Ud Cup PO 10 ml Q6H PRN Administration Cough Fentanyl Citrate 2,000 mcg/ 100 mls @ 0 mls/hr 05/31/20 09:30 06/05/20 10:13 Sodium Chloride IV 06/30/20 09:30 100 mls INF ISABEL Administration Protocol Per Protocol Cefepime HCl 1 gm/ Sodium 100 mls @ 200 mls/hr 05/31/20 12:00 06/05/20 11:07 Chloride IVPB 100 mls 1200,2359 ISABEL Administration Doxycycline Hyclate 100 mg/ 100 mls @ 100 mls/hr 05/31/20 13:00 06/05/20 11:59 Sodium Chloride IVPB 100 mls 0100,1300 ISABEL Administration Insulin Glargine 10 units/ 0.1 mls @ 0 mls/hr 06/04/20 21:00 06/04/20 20:34 Miscellaneous Medication SC 0.1 mls HS ISABEL Administration Insulin Human Lispro 0 units 06/03/20 18:45 06/05/20 16:47 Humalog 300 Units/3 Ml Vial SC 3 unit .MILD SLIDING SCALE PRN Administration MILD SLIDING SCALE Protocol Lorazepam 2 mg 05/31/20 09:30 06/05/20 11:07 Lorazepam 2 Mg/Ml Vial SLOW IVP 06/30/20 09:30 2 mg Q1H PRN Administration Breakthrough agitation Propofol 1,000 mg 05/31/20 09:30 06/05/20 12:34 Propofol 1,000 Mg/100 Ml Vial IV 06/30/20 09:30 1,000 mg INF PRN Administration TO ACHIEVE GOAL RASS Protocol Throat Lozenges 1 aaliyah 05/28/20 11:54 05/28/20 15:19 Cepastat Lozenges 1 Aaliyah PO 1 aaliyah Q2H PRN Administration Sore Throat Vecuronium [place] 10 mg 05/31/20 09:24 06/02/20 05:47 Vecuronium 10 Mg Vial IV 10 mg Q1H PRN Administration Anxiety/Agitation Zinc Sulfate 220 mg 05/26/20 09:00 06/05/20 09:01 Zinc Sulfate 220 Mg Cap PO Not Given DAILY ISABEL - Exam General - other findings: sedated. Eye: PERRL ENT: normocephalic atraumatic Neck: supple Heart: RRR Respiratory: CTAB Gastrointestinal: soft, non-tender Extremities: no cyanosis Skin: normal turgor Neurological - other findings: sedated Hosp A/P - Plan This is a 50-year-old male patient with no significant past medical admitted for acute respiratory failure secondary to Covid pneumonia. Acute respiratory failure secondary to COVID-19 pneumonia --Status post intubation on 05/31/2019 --pt is on maximum therapy for COVID-19 pneumonia treatments including Remdesivir, Decadron, and ancillary treatments with Vit C/D/Zinc --s/p convalescent plasma --Lovenox for DVT ppx --Pul/ID consulted, appreciate input. --cont supportive cares --palliative care consult appreciated --Pt is making significant improvement COVID-19 Pneumonia --mgt as above. DM 2, new dx --A1C 6.9, add Lantus, cont ISS
[2020-06-05] MEDS: Insulin Glargine 10 UNITS in Pre-Filled Syringe 1 EACH SC SCH (20:33)
[2020-06-06] MEDS: Propofol 1,000 MG/100 ML VIAL IV PRN ×5 (00:48→21:37)
[2020-06-06] MEDS: HumaLOG 300 UNITS/3 ML VIAL SC PRN ×4 (04:16→21:34)
[2020-06-06] MEDS: fentaNYL Citrate/PF 2,000 MCG in Sodium Chloride 0.9% 60 ML IV SCH ×2 (05:46→23:47)
[2020-06-06 07:04] LABS: #Lymphocytes 0.6 thou/uL (1.20-3.40); #Monocytes 0.6 thou/uL (0.11-0.59); #Neutrophils 13.2 thou/uL (1.40-6.50); %Eosinophils 0.1 % (0.0-10.0); %Lymphocytes 4.2 % (21.0-51.0); %Monocytes 3.8 % (0.0-10.0); %Neutrophils 91.9 % (42.0-75.0); Hemoglobin 14.4 g/dL (14.0-18.0); Mean Corpuscular HGB CONC 32.8 g/dL (32.0-36.0); Mean Corpuscular Hemoglobin 29.5 pg (27.0-31.0); Mean Corpuscular Volume 89.7 fL (78.0-98.0); Platelet Count 166 thou/uL (130-400); RBC Distribution Width 12.2 % (11.5-14.5); White Blood Cell (WBC) Count 14.4 thou/uL (4.8-10.8)
[2020-06-06 07:21] LABS: Actual Bicarbonate (HCO3a) 28.5 mEq/L (22-28); CO2 Tension 38.2 mmHg (35.0-45.0); Calcium, Ionized (arterial) 1.12 mmol/L (1.12-1.30); Carboxyhemoglobin (COHb) 0.6 gm% (0.0-3.0); Hemoglobin (Hb) 16.3 g/dL (14.0-18.0); O2 Tension (PaO2), arterial 61.3 mmHg (80.0-100.0); Potassium - ABG Lab 4.25 mmol/L (3.70-5.30); pH, Arterial 7.49 (7.35-7.45)
[2020-06-06 07:27] LABS: Anion Gap 10 mmol/L (10-20); BUN (Urea Nitrogen) 20 mg/dL (8.9-20.6); Calc. Creatinine Clearance 146 mL/min (70-130); Calcium 7.5 mg/dL (7.8-10.44); Carbon Dioxide 26 mmol/L (22-29); Chloride 99 mmol/L (98-107); Glucose 233 mg/dL (70-105); Potassium 4.4 mmol/L (3.5-5.1); Sodium 131 mmol/L (136-145)
[2020-06-06 07:44] LABS: Puncture Site LRA
[2020-06-06] MEDS: Cholecalciferol (Vitamin D3) 400 UNITS TAB PO SCH (07:56)
[2020-06-06] MEDS: Famotidine/PF 20 mg/2ml Vial SLOW IVP SCH ×2 (07:57→19:22)
[2020-06-06] MEDS: Ascorbic Acid 500 mg Chewable Tablet PO SCH (07:57)
[2020-06-06] MEDS: Enoxaparin Sodium 40 MG/0.4 ML SYRINGE SC SCH ×2 (07:57→19:22)
[2020-06-06] MEDS: Zinc Sulfate 220 MG CAP PO SCH (07:57)
[2020-06-06] MEDS: Dexamethasone 10 MG/ML VIAL SLOW IVP SCH ×2 (07:57→19:22)
--- NOTE | 2020-06-06 09:47 | PRG ---
DATE OF SERVICE: 06/06/2020 SUBJECTIVE: This morning the patient intubated in the vent. His saturations are much improved. OBJECTIVE: VITAL SIGNS: His temperature 97, his pulse 79, blood pressure 96/60, respiratory rate 18. I's and O's good. CHEST: No wheezing. No crackles. CARDIAC: Normal S1, S2. No masses. DATA: White count 14,000, H and H are 14 and 44. PO2 of 61, pCO2 of and a bilevel 30/10 with rate 24 on 50% FiO2. Sodium 131. IMPRESSION: 1. Respiratory failure. 2. Cook-positive pneumonia. PLAN: High-dose steroids, antibiotics, supportive care, PT. Nutrition. Vent is being adjusted. Avoid proning today since he is doing better. One-half hour of critical time. Job ID: [id number]
--- NOTE | 2020-06-06 10:06 | RAD ---
PORTABLE CHEST: Date: 06/06/2020 HISTORY: Pneumonia follow-up, on ventilator. COMPARISON: 06/03/2020. FINDINGS/IMPRESSION: ET tube and NG tube remain in place and unchanged. There are hazy somewhat confluent and patchy bilateral infiltrates throughout both lungs. There may b e some mild interval improvement when compared to 06/03/2020. POS: AGW
[2020-06-06] MEDS: Cefepime 1 GM in Sodium Chloride 0.9% 100 ML IVPB SCH ×2 (11:41→23:17)
[2020-06-06] MEDS: Lorazepam 2 MG/ML VIAL SLOW IVP PRN ×2 (11:42→18:23)
--- NOTE | 2020-06-06 18:09 | PDOC.HOSPP ---
- Subjective Subjective: pt continue to improve clinically. vent setting adjusted by pul - Objective Vital Signs & Weight: Vital Signs (12 hours) Temp Pulse Resp BP Pulse Ox 06/06/20 16:14 77 97/68 06/06/20 16:00 20 06/06/20 14:00 20 06/06/20 13:12 55 L 06/06/20 12:00 20 06/06/20 11:08 79 148/96 H 06/06/20 10:00 20 06/06/20 08:00 24 H 100 06/06/20 07:00 97.1 F L 06/06/20 06:50 78 157/107 H Weight Admit Weight 183 lb 4.8 oz Weight 157 lb 3.033 oz Most Recent Monitor Data Heart Rate from ECG 70 NIBP 113/63 NIBP BP-Mean 79 Respiration from ECG 22 SpO2 100 I&O: 06/05/20 06/06/20 06/07/20 06:59 06:59 06:59 Intake Total 2346 2401.2 1236 Output Total 1840 1700 1280 Balance 506 701.2 -44 Result Diagrams: 06/06/20 06:51 06/06/20 06:51 Additional Labs: Accuchecks 06/06/20 06/06/20 06/06/20 16:25 09:52 04:15 POC Glucose 273 H 203 H 256 H 06/05/20 06/05/20 20:03 16:08 POC Glucose 222 H 232 H Radiology Reviewed by me: Yes EKG Reviewed by me: Yes Hospitalist ROS - Medication Medications: Active Medications Generic Name Dose Route Start Last Admin Trade Name Adriaq PRN Reason Stop Dose Admin Acetaminophen 650 mg 05/23/20 14:17 05/31/20 10:17 Acetaminophen 325 Mg Tab PO 650 mg Q4H PRN Administration Headache/Fever/Mild Pain (1-3) Albuterol Sulfate 1 puff 05/25/20 23:43 05/30/20 22:00 Albuterol 200 Puff (6.7gm Inhaler) INH 1 puff Q8H PRN Administration Wheezing Ascorbic Acid 1,000 mg 05/26/20 09:00 06/06/20 07:57 Ascorbic Acid 500 Mg Chewable Tablet PO 1,000 mg DAILY ISABEL Administration Cholecalciferol 400 units 05/26/20 09:00 06/06/20 07:56 Cholecalciferol (Vitamin D3) 400 Units Tab PO 400 units DAILY ISABEL Administration Dexamethasone 10 mg 06/03/20 21:00 06/06/20 07:57 Dexamethasone 10 Mg/Ml Vial SLOW IVP 10 mg BID ISABEL Administration Docusate Sodium 100 mg 06/05/20 11:42 06/06/20 09:05 Docusate 100 Mg Cap PO 100 mg BIDPRN PRN Administration Constipation Enoxaparin Sodium 40 mg 05/23/20 21:00 06/06/20 07:57 Enoxaparin Sodium 40 Mg/0.4 Ml Syringe SC 40 mg 0900,2100 ISABEL Administration Famotidine 20 mg 06/03/20 21:00 06/06/20 07:57 Famotidine/Pf 20 Mg/2ml Vial SLOW IVP 20 mg Q12HR ISABEL Administration Guaifenesin/Codeine Phosphate 10 ml 05/28/20 11:54 05/30/20 21:52 Guaifenesin/Codeine Phosphate 200 Mg/20 Mg 10 Ml Ud Cup PO 10 ml Q6H PRN Administration Cough Fentanyl Citrate 2,000 mcg/ 100 mls @ 0 mls/hr 05/31/20 09:30 06/06/20 05:46 Sodium Chloride IV 06/30/20 09:30 100 mls INF ISABEL Administration Protocol Per Protocol Cefepime HCl 1 gm/ Sodium 100 mls @ 200 mls/hr 05/31/20 12:00 06/06/20 11:41 Chloride IVPB 100 mls 1200,2359 ISABEL Administration Doxycycline Hyclate 100 mg/ 100 mls @ 100 mls/hr 05/31/20 13:00 06/06/20 13:21 Sodium Chloride IVPB 100 mls 0100,1300 ISABEL Administration Insulin Glargine 10 units/ 0.1 mls @ 0 mls/hr 06/04/20 21:00 06/05/20 20:33 Miscellaneous Medication SC 0.1 mls HS ISABEL Administration Insulin Human Lispro 0 units 06/03/20 18:45 06/06/20 17:14 Humalog 300 Units/3 Ml Vial SC 4 unit .MILD SLIDING SCALE PRN Administration MILD SLIDING SCALE Protocol Lorazepam 2 mg 05/31/20 09:30 06/06/20 11:42 Lorazepam 2 Mg/Ml Vial SLOW IVP 06/30/20 09:30 2 mg Q1H PRN Administration Breakthrough agitation Polyethylene Glycol 17 gm 06/05/20 11:42 06/06/20 09:05 Polyethylene Glycol 3350 17 Gm Packet PO 17 gm DAILYPRN PRN Administration Constipation Propofol 1,000 mg 05/31/20 09:30 06/06/20 17:14 Propofol 1,000 Mg/100 Ml Vial IV 06/30/20 09:30 1,000 mg INF PRN Administration TO ACHIEVE GOAL RASS Protocol Throat Lozenges 1 aaliyah 05/28/20 11:54 05/28/20 15:19 Cepastat Lozenges 1 Aaliyah PO 1 aaliyah Q2H PRN Administration Sore Throat Vecuronium [place] 10 mg 05/31/20 09:24 06/02/20 05:47 Vecuronium 10 Mg Vial IV 10 mg Q1H PRN Administration Anxiety/Agitation Zinc Sulfate 220 mg 05/26/20 09:00 06/06/20 07:57 Zinc Sulfate 220 Mg Cap PO 220 mg DAILY ISABEL Administration - Exam General Appearance: NAD General - other findings: intubated Eye: PERRL ENT: normocephalic atraumatic Neck: supple Heart: RRR Respiratory: CTAB Gastrointestinal: soft Extremities: no cyanosis Skin: normal turgor Neurological - other findings: intubated Hosp A/P - Plan This is a 50-year-old male patient with no significant past medical admitted for acute respiratory failure secondary to Covid pneumonia. Acute respiratory failure secondary to COVID-19 pneumonia --Status post intubation on 05/31/2019 --pt is on maximum therapy for COVID-19 pneumonia treatments including Remdesivir, Decadron, and ancillary treatments with Vit C/D/Zinc --s/p convalescent plasma --Lovenox for DVT ppx --Pul/ID consulted, appreciate input. --cont supportive cares --palliative care consult appreciated --Pt is making significant improvement in the last few days. COVID-19 Pneumonia --mgt as above. DM 2, new dx --A1C 6.9, add Lantus, cont ISS
[2020-06-06] MEDS: Insulin Glargine 15 UNITS in Pre-Filled Syringe 1 EACH SC SCH (21:36)
[2020-06-07] MEDS: Propofol 1,000 MG/100 ML VIAL IV PRN ×4 (02:47→23:58)
[2020-06-07] MEDS: HumaLOG 300 UNITS/3 ML VIAL SC PRN ×4 (03:59→19:57)
[2020-06-07 04:17] LABS: #Lymphocytes 0.9 thou/uL (1.20-3.40); #Monocytes 0.2 thou/uL (0.11-0.59); #Neutrophils 11.6 thou/uL (1.40-6.50); %Basophils 0.1 % (0.0-1.0); %Eosinophils 0.1 % (0.0-10.0); %Lymphocytes 6.9 % (21.0-51.0); %Monocytes 1.4 % (0.0-10.0); %Neutrophils 91.5 % (42.0-75.0); Hemoglobin 14.3 g/dL (14.0-18.0); Mean Corpuscular HGB CONC 34.1 g/dL (32.0-36.0); Mean Corpuscular Hemoglobin 30.9 pg (27.0-31.0); Mean Corpuscular Volume 90.5 fL (78.0-98.0); Mean Platelet Volume 8.7 fL (7.4-10.4); Platelet Count 149 thou/uL (130-400); RBC Distribution Width 12.3 % (11.5-14.5); Red Blood Cell (RBC) Count 4.62 mill/uL (4.70-6.10); White Blood Cell (WBC) Count 12.7 thou/uL (4.8-10.8)
[2020-06-07 04:39] LABS: Anion Gap 11 mmol/L (10-20); BUN (Urea Nitrogen) 20 mg/dL (8.9-20.6); CRP (Inflammatory) Less than 0.50 mg/dL (= or < 0.5); Calc. Creatinine Clearance 146 mL/min (70-130); Calcium 7.5 mg/dL (7.8-10.44); Carbon Dioxide 28 mmol/L (22-29); Chloride 101 mmol/L (98-107); Glucose 264 mg/dL (70-105); Potassium 4.7 mmol/L (3.5-5.1); Sodium 135 mmol/L (136-145)
[2020-06-07] MEDS: Famotidine/PF 20 mg/2ml Vial SLOW IVP SCH (08:13)
[2020-06-07] MEDS: Cholecalciferol (Vitamin D3) 400 UNITS TAB PO SCH (08:13)
[2020-06-07] MEDS: Ascorbic Acid 500 mg Chewable Tablet PO SCH (08:13)
[2020-06-07] MEDS: Dexamethasone 10 MG/ML VIAL SLOW IVP SCH ×2 (08:13→19:11)
[2020-06-07] MEDS: Enoxaparin Sodium 40 MG/0.4 ML SYRINGE SC SCH ×2 (08:13→19:11)
[2020-06-07] MEDS: Zinc Sulfate 220 MG CAP PO SCH (08:13)
--- NOTE | 2020-06-07 09:12 | PRG ---
DATE OF SERVICE: SUBJECTIVE: This morning, he is sedated on the vent. His bilevel 40%. His sats are much improved at 96. OBJECTIVE: VITAL SIGNS: Blood pressure 110/75, pulse 72, respiratory rate 18, temperature 98. Is and Os have been positive. CHEST: No wheezing, no crackles. CARDIAC: Normal S1, S2. ABDOMEN: No masses. LABORATORY DATA: Unremarkable. X-ray shows slight improvement. ASSESSMENT: Cook positive pneumonia and respiratory failure, minimally improved. PLAN: Continue Decadron, antibiotics, supportive care. Vent is being adjusted. One-half hour of critical time. Job ID: [id number]
--- NOTE | 2020-06-07 09:57 | RAD ---
ONE VIEW CHEST: HISTORY: On ventilator. Followup evaluation. COMPARISON: 06/06/2020. FINDINGS: Endotracheal tube and nasogastric tube remain in place. There are bilateral interstitial and patchy parenchymal airspace opacities overall similar in distribution to prior exam. Cardiac silhouette is stable in size. There has been no interval change when compared to prior exam. IMPRESSION: Stable chest with findings suggestive of COVID pneumonia. Developing ARDS is a possibility. POS: [facility]
[2020-06-07] MEDS: Cefepime 1 GM in Sodium Chloride 0.9% 100 ML IVPB SCH ×2 (11:21→23:58)
[2020-06-07] MEDS: Lorazepam 2 MG/ML VIAL SLOW IVP PRN (11:30)
[2020-06-07] MEDS: fentaNYL Citrate/PF 2,000 MCG in Sodium Chloride 0.9% 60 ML IV SCH (17:59)
--- NOTE | 2020-06-07 18:40 | PDOC.HOSPP ---
- Subjective Subjective: remains intubated. Vent wean down. updated pt's . - Objective Vital Signs & Weight: Vital Signs (12 hours) Temp Pulse Resp BP Pulse Ox 06/07/20 16:00 98.9 F 24 H 06/07/20 14:56 93 111/67 06/07/20 14:00 20 06/07/20 12:00 98.7 F 20 06/07/20 11:33 83 124/77 06/07/20 10:00 27 H 06/07/20 08:00 32 H 97 06/07/20 07:28 57 L 90/59 L 06/07/20 07:00 98.1 F Weight Admit Weight 183 lb 4.8 oz Weight 157 lb 13.616 oz Most Recent Monitor Data Heart Rate from ECG 79 NIBP 125/82 NIBP BP-Mean 96 Respiration from ECG 24 SpO2 98 I&O: 06/06/20 06/07/20 06/08/20 06:59 06:59 06:59 Intake Total 2536.2 2637.8 310 Output Total 1700 2315 790 Balance 836.2 322.8 -480 Result Diagrams: 06/07/20 03:57 06/07/20 03:56 Additional Labs: Accuchecks 06/07/20 06/07/20 06/07/20 15:50 09:35 03:57 POC Glucose 258 H 202 H 243 H 06/06/20 19:36 POC Glucose 200 H Radiology Reviewed by me: Yes EKG Reviewed by me: Yes Hospitalist ROS - Medication Medications: Active Medications Generic Name Dose Route Start Last Admin Trade Name Freq PRN Reason Stop Dose Admin Acetaminophen 650 mg 05/23/20 14:17 05/31/20 10:17 Acetaminophen 325 Mg Tab PO 650 mg Q4H PRN Administration Headache/Fever/Mild Pain (1-3) Albuterol Sulfate 1 puff 05/25/20 23:43 05/30/20 22:00 Albuterol 200 Puff (6.7gm Inhaler) INH 1 puff Q8H PRN Administration Wheezing Ascorbic Acid 1,000 mg 05/26/20 09:00 06/07/20 08:13 Ascorbic Acid 500 Mg Chewable Tablet PO 1,000 mg DAILY ISABEL Administration Cholecalciferol 400 units 05/26/20 09:00 06/07/20 08:13 Cholecalciferol (Vitamin D3) 400 Units Tab PO 400 units DAILY ISABEL Administration Dexamethasone 10 mg 06/03/20 21:00 06/07/20 08:13 Dexamethasone 10 Mg/Ml Vial SLOW IVP 10 mg BID ISABEL Administration Docusate Sodium 100 mg 06/05/20 11:42 06/06/20 09:05 Docusate 100 Mg Cap PO 100 mg BIDPRN PRN Administration Constipation Enoxaparin Sodium 40 mg 05/23/20 21:00 06/07/20 08:13 Enoxaparin Sodium 40 Mg/0.4 Ml Syringe SC 40 mg 0900,2100 ISABEL Administration Guaifenesin/Codeine Phosphate 10 ml 05/28/20 11:54 05/30/20 21:52 Guaifenesin/Codeine Phosphate 200 Mg/20 Mg 10 Ml Ud Cup PO 10 ml Q6H PRN Administration Cough Fentanyl Citrate 2,000 mcg/ 100 mls @ 0 mls/hr 05/31/20 09:30 06/07/20 17:59 Sodium Chloride IV 06/30/20 09:30 100 mls INF ISABEL Administration Protocol Per Protocol Cefepime HCl 1 gm/ Sodium 100 mls @ 200 mls/hr 05/31/20 12:00 06/07/20 11:21 Chloride IVPB 100 mls 1200,2359 ISABEL Administration Doxycycline Hyclate 100 mg/ 100 mls @ 100 mls/hr 05/31/20 13:00 06/07/20 13:44 Sodium Chloride IVPB 100 mls 0100,1300 ISABEL Administration Insulin Glargine 15 units/ 0.15 mls @ 0 mls/hr 06/06/20 21:00 06/06/20 21:36 Miscellaneous Medication SC 0.15 mls HS ISABEL Administration Insulin Human Lispro 0 units 06/03/20 18:45 06/07/20 15:54 Humalog 300 Units/3 Ml Vial SC 4 unit .MILD SLIDING SCALE PRN Administration MILD SLIDING SCALE Protocol Lorazepam 2 mg 05/31/20 09:30 06/07/20 11:30 Lorazepam 2 Mg/Ml Vial SLOW IVP 06/30/20 09:30 2 mg Q1H PRN Administration Breakthrough agitation Polyethylene Glycol 17 gm 06/05/20 11:42 06/06/20 09:05 Polyethylene Glycol 3350 17 Gm Packet PO 17 gm DAILYPRN PRN Administration Constipation Propofol 1,000 mg 05/31/20 09:30 06/07/20 18:24 Propofol 1,000 Mg/100 Ml Vial IV 06/30/20 09:30 1,000 mg INF PRN Administration TO ACHIEVE GOAL RASS Protocol Throat Lozenges 1 aaliyah 05/28/20 11:54 05/28/20 15:19 Cepastat Lozenges 1 Aaliyah PO 1 aaliyah Q2H PRN Administration Sore Throat Vecuronium [place] 10 mg 05/31/20 09:24 06/02/20 05:47 Vecuronium 10 Mg Vial IV 10 mg Q1H PRN Administration Anxiety/Agitation Zinc Sulfate 220 mg 05/26/20 09:00 06/07/20 08:13 Zinc Sulfate 220 Mg Cap PO 220 mg DAILY ISABEL Administration - Exam General - other findings: intubated. Eye: PERRL ENT: normocephalic atraumatic Neck: supple Heart: RRR, no murmur Respiratory: CTAB, no wheezes Gastrointestinal: soft, non-tender Extremities: no cyanosis Neurological: cranial nerve grossly intact Musculoskeletal - other findings: intubated. Hosp A/P - Plan This is a 50-year-old male patient with no significant past medical admitted for acute respiratory failure secondary to Covid pneumonia. Acute respiratory failure secondary to COVID-19 pneumonia --Status post intubation on 05/31/2019 --pt is on maximum therapy for COVID-19 pneumonia treatments including Remd esivir, Decadron, and ancillary treatments with Vit C/D/Zinc --s/p convalescent plasma --Lovenox for DVT ppx --Pul/ID consulted, appreciate input. --cont supportive cares --palliative care consult appreciated --Pt is making significant improvement in the last few days. COVID-19 Pneumonia --mgt as above. DM 2, new dx --A1C 6.9, add Lantus, cont ISS Updated pt's .
[2020-06-07] MEDS: Famotidine 20 MG TAB PO SCH (19:11)
[2020-06-07] MEDS: Insulin Glargine 15 UNITS in Pre-Filled Syringe 1 EACH SC SCH (19:11)
[2020-06-08] MEDS: HumaLOG 300 UNITS/3 ML VIAL SC PRN ×3 (04:10→19:34)
[2020-06-08 04:23] LABS: #Lymphocytes 0.3 thou/uL (1.20-3.40); #Monocytes 0.4 thou/uL (0.11-0.59); #Neutrophils 9.6 thou/uL (1.40-6.50); %Eosinophils 0.1 % (0.0-10.0); %Lymphocytes 3.2 % (21.0-51.0); %Monocytes 4.1 % (0.0-10.0); %Neutrophils 92.6 % (42.0-75.0); Mean Corpuscular HGB CONC 33.6 g/dL (32.0-36.0); Mean Corpuscular Hemoglobin 30.3 pg (27.0-31.0); Mean Corpuscular Volume 90.3 fL (78.0-98.0); Mean Platelet Volume 8.7 fL (7.4-10.4); Platelet Count 128 thou/uL (130-400); RBC Distribution Width 12.4 % (11.5-14.5); Red Blood Cell (RBC) Count 4.29 mill/uL (4.70-6.10); White Blood Cell (WBC) Count 10.4 thou/uL (4.8-10.8)
[2020-06-08 04:40] LABS: Anion Gap 10 mmol/L (10-20); BUN (Urea Nitrogen) 18 mg/dL (8.9-20.6); CRP (Inflammatory) Less than 0.50 mg/dL (= or < 0.5); Calc. Creatinine Clearance 157 mL/min (70-130); Calcium 7.2 mg/dL (7.8-10.44); Carbon Dioxide 26 mmol/L (22-29); Chloride 100 mmol/L (98-107); Glucose 269 mg/dL (70-105); Potassium 4.4 mmol/L (3.5-5.1); Sodium 132 mmol/L (136-145)
[2020-06-08] MEDS: Propofol 1,000 MG/100 ML VIAL IV PRN ×3 (07:33→23:23)
--- NOTE | 2020-06-08 07:48 | PDOC.HOSPP ---
- Subjective Encounter Date: 06/08/20 (f/u resp failure) Encounter Time: 07:41 Subjective: 50 y/ol male with no significant medical history admitted for resp failure due to covid pneumonia - Pt remains intubated and sedated. Overnight events reviewed with the nurse - requiring less vent support, following commands. No BM's noted. No other events - Objective Vital Signs & Weight: Vital Signs (12 hours) Temp Pulse Resp BP Pulse Ox 06/08/20 07:13 73 149/98 H 06/08/20 06:00 20 06/08/20 04:00 20 06/08/20 03:19 73 06/08/20 02:00 20 06/08/20 00:00 98.2 F 20 06/07/20 22:08 84 135/102 H 06/07/20 22:00 20 06/07/20 20:00 98.7 F 20 99 Weight Admit Weight 183 lb 4.8 oz Weight 150 lb 9.211 oz Most Recent Monitor Data Heart Rate from ECG 89 NIBP 149/98 NIBP BP-Mean 115 Respiration from ECG 23 SpO2 98 I&O: 06/07/20 06/08/20 06/09/20 06:59 06:59 06:59 Intake Total 2637.8 2269.1 Output Total 2315 2645 Balance 322.8 -375.9 Result Diagrams: 06/08/20 03:56 06/08/20 03:56 Additional Labs: Accuchecks 06/08/20 06/07/20 06/07/20 03:55 19:56 15:50 POC Glucose 245 H 205 H 258 H 06/07/20 09:35 POC Glucose 202 H EKG Reviewed by me: Yes (tele - int tachycardia - regular and irregular) Hospitalist ROS - Medication Medications: Active Medications Generic Name Dose Route Start Last Admin Trade Name Freq PRN Reason Stop Dose Admin Acetaminophen 650 mg 05/23/20 14:17 05/31/20 10:17 Acetaminophen 325 Mg Tab PO 650 mg Q4H PRN Administration Headache/Fever/Mild Pain (1-3) Albuterol Sulfate 1 puff 05/25/20 23:43 05/30/20 22:00 Albuterol 200 Puff (6.7gm Inhaler) INH 1 puff Q8H PRN Administration Wheezing Ascorbic Acid 1,000 mg 05/26/20 09:00 06/07/20 08:13 Ascorbic Acid 500 Mg Chewable Tablet PO 1,000 mg DAILY ISABEL Administration Cholecalciferol 400 units 05/26/20 09:00 06/07/20 08:13 Cholecalciferol (Vitamin D3) 400 Units Tab PO 400 units DAILY ISABEL Administration Dexamethasone 10 mg 06/03/20 21:00 06/07/20 19:11 Dexamethasone 10 Mg/Ml Vial SLOW IVP 10 mg BID ISABEL Administration Docusate Sodium 100 mg 06/05/20 11:42 06/06/20 09:05 Docusate 100 Mg Cap PO 100 mg BIDPRN PRN Administration Constipation Enoxaparin Sodium 40 mg 05/23/20 21:00 06/07/20 19:11 Enoxaparin Sodium 40 Mg/0.4 Ml Syringe SC 40 mg 09,2100 ISABEL Administration Famotidine 20 mg 06/07/20 21:00 06/07/20 19:11 Famotidine 20 Mg Tab PO 20 mg Q12HR ISABEL Administration Guaifenesin/Codeine Phosphate 10 ml 05/28/20 11:54 05/30/20 21:52 Guaifenesin/Codeine Phosphate 200 Mg/20 Mg 10 Ml Ud Cup PO 10 ml Q6H PRN Administration Cough Fentanyl Citrate 2,000 mcg/ 100 mls @ 0 mls/hr 05/31/20 09:30 06/07/20 17:59 Sodium Chloride IV 06/30/20 09:30 100 mls INF ISABEL Administration Protocol Per Protocol Cefepime HCl 1 gm/ Sodium 100 mls @ 200 mls/hr 05/31/20 12:00 06/07/20 23:58 Chloride IVPB 100 mls 1200,2359 ISABEL Administration Doxycycline Hyclate 100 mg/ 100 mls @ 100 mls/hr 05/31/20 13:00 06/08/20 02:04 Sodium Chloride IVPB 100 mls 0100,1300 ISABEL Administration Insulin Glargine 15 units/ 0.15 mls @ 0 mls/hr 06/06/20 21:00 06/07/20 19:11 Miscellaneous Medication SC 0.15 mls HS ISABEL Administration Insulin Human Lispro 0 units 06/03/20 18:45 06/08/20 04:10 Humalog 300 Units/3 Ml Vial SC 3 unit .MILD SLIDING SCALE PRN Administration MILD SLIDING SCALE Protocol Lorazepam 2 mg 05/31/20 09:30 06/07/20 11:30 Lorazepam 2 Mg/Ml Vial SLOW IVP 06/30/20 09:30 2 mg Q1H PRN Administration Breakthrough agitation Polyethylene Glycol 17 gm 06/05/20 11:42 06/06/20 09:05 Polyethylene Glycol 3350 17 Gm Packet PO 17 gm DAILYPRN PRN Administration Constipation Propofol 1,000 mg 05/31/20 09:30 06/08/20 07:33 Propofol 1,000 Mg/100 Ml Vial IV 06/30/20 09:30 1,000 mg INF PRN Administration TO ACHIEVE GOAL RASS Protocol Throat Lozenges 1 aaliyah 05/28/20 11:54 05/28/20 15:19 Cepastat Lozenges 1 Aaliyah PO 1 aaliyah Q2H PRN Administration Sore Throat Vecuronium [place] 10 mg 05/31/20 09:24 06/02/20 05:47 Vecuronium 10 Mg Vial IV 10 mg Q1H PRN Administration Anxiety/Agitation Zinc Sulfate 220 mg 05/26/20 09:00 06/07/20 08:13 Zinc Sulfate 220 Mg Cap PO 220 mg DAILY ISABEL Administration - Exam General Appearance: NAD Heart: RRR, no murmur Respiratory: no wheezes, no rales, no ronchi, normal chest expansion Gastrointestinal: soft, non-distended, normal bowel sounds Extremities: no cyanosis, no clubbing, no edema Neurological - other findings: unable to assess Musculoskeletal - other findings: unable to assess Psychiatric - other findings: unable to assess Hosp A/P (1) Pneumonia due to COVID-19 virus Code(s): U07.1 - COVID-19; J12.89 - OTHER VIRAL PNEUMONIA Status: Acute (2) Respiratory failure with hypoxia Code(s): J96.91 - RESPIRATORY FAILURE, UNSPECIFIED WITH HYPOXIA Status: Acute (3) Elevated blood sugar Code(s): R73.9 - HYPERGLYCEMIA, UNSPECIFIED Status: Acute (4) Hyponatremia Code(s): E87.1 - HYPO-OSMOLALITY AND HYPONATREMIA Status: Acute - Plan Acute respiratory failure secondary to COVID-19 pneumonia - Status post intubation on 05/31/2019 - Treatment for COVID-19 pneumonia treatments including Decadron, and ancillary treatments with Vit C/D/Zinc - s/p convalescent plasma and remdesivir - Pul/ID consulted, appreciate input. - on antibiotics Cefepime and doxycycline - cont supportive cares - palliative care consult appreciated DM 2, new dx - blood sugars not optimally controlled - request hospital director re-evaluate tube feeds to assist with blood sugar management - increase lantus to 20 units at night Pseudohyponatremia - sodium corrects when factoring in blood sugar Hyponatremia - mild - request hospital director re-evaluate tube feeds/free water flushes No recent bm - change docusate and miralax to scheduled dvt prophy - lovenox gi prophy - famotidine code status - full Pt remains at high risk in current condition
[2020-06-08] MEDS: Polyethylene Glycol 3350 17 GM Packet PO SCH (08:53)
[2020-06-08] MEDS: Docusate 100 MG CAP PO SCH ×2 (08:53→21:07)
[2020-06-08] MEDS: Ascorbic Acid 500 mg Chewable Tablet PO SCH (08:53)
[2020-06-08] MEDS: Famotidine 20 MG TAB PO SCH ×2 (08:53→21:06)
[2020-06-08] MEDS: Zinc Sulfate 220 MG CAP PO SCH (08:53)
[2020-06-08] MEDS: Cholecalciferol (Vitamin D3) 400 UNITS TAB PO SCH (08:53)
[2020-06-08] MEDS: Dexamethasone 10 MG/ML VIAL SLOW IVP SCH ×2 (08:53→21:06)
[2020-06-08] MEDS: Enoxaparin Sodium 40 MG/0.4 ML SYRINGE SC SCH ×2 (08:54→21:06)
[2020-06-08] MEDS: Lorazepam 2 MG/ML VIAL SLOW IVP PRN ×2 (10:08→18:33)
--- NOTE | 2020-06-08 10:13 | RAD ---
RADIOGRAPH CHEST 1 VIEW: DATE: 06/08/2020 TIME: 5:48 AM HISTORY: 50-year-old male in respiratory failure COMPARISON: 06/07/2020 FINDINGS: Endotracheal tube and esophagogastric tube remain. Multifocal patchy alveolar infiltrates bilaterally. No cardiomegaly or pneumothorax. Lateral costophrenic angles are sharp. No interval change. IMPRESSION: No interval change in the moderately severe bilateral COVID 19 pneumonia
[2020-06-08] MEDS: fentaNYL Citrate/PF 2,000 MCG in Sodium Chloride 0.9% 60 ML IV SCH (12:17)
[2020-06-08] MEDS: Cefepime 1 GM in Sodium Chloride 0.9% 100 ML IVPB SCH ×2 (12:18→23:24)
--- NOTE | 2020-06-08 18:19 | PRG ---
DATE OF SERVICE: 06/08/2020 SUBJECTIVE: Mr. Mercedes remains hemodynamically stable. OBJECTIVE: VITAL SIGNS: He is afebrile. Heart rate is in the 80s, blood pressure 135/83, respiratory rate is 30, FiO2 is 35%. LUNGS: Remarkable for equal breath sounds. HEART: Regular rhythm. ABDOMEN: Soft. EXTREMITIES: Without edema. NEURO: Remarkable for sedation. LABORATORY DATA: White count 10.4, hemoglobin 13, platelets 128. Sodium 133, potassium 4.4, chloride 100, bicarb 26, BUN 18, creatinine 0.57. Chest x-ray is unchanged. IMPRESSION: COVID pneumonia with actually improving gas exchange. We will continue current support. Hopefully, he will continue to improve and hopefully his lung compliance will improve. Critical care time 30 min. Job ID: [id number] MTDD
[2020-06-08] MEDS: Insulin Glargine 20 UNITS in Pre-Filled Syringe 1 EACH SC SCH (21:06)
[2020-06-09] MEDS: Lorazepam 2 MG/ML VIAL SLOW IVP PRN ×3 (00:14→06:28)
[2020-06-09] MEDS: HumaLOG 300 UNITS/3 ML VIAL SC PRN ×4 (03:56→20:30)
[2020-06-09 04:10] LABS: #Lymphocytes 0.3 thou/uL (1.20-3.40); #Monocytes 0.4 thou/uL (0.11-0.59); #Neutrophils 9.6 thou/uL (1.40-6.50); %Basophils 0.1 % (0.0-1.0); %Eosinophils 0.2 % (0.0-10.0); %Lymphocytes 2.5 % (21.0-51.0); %Monocytes 3.4 % (0.0-10.0); %Neutrophils 93.8 % (42.0-75.0); Hemoglobin 13.5 g/dL (14.0-18.0); Mean Corpuscular HGB CONC 33.5 g/dL (32.0-36.0); Mean Corpuscular Hemoglobin 30.5 pg (27.0-31.0); Mean Corpuscular Volume 91.1 fL (78.0-98.0); Mean Platelet Volume 9.2 fL (7.4-10.4); Platelet Count 109 thou/uL (130-400); RBC Distribution Width 12.7 % (11.5-14.5); Red Blood Cell (RBC) Count 4.42 mill/uL (4.70-6.10); White Blood Cell (WBC) Count 10.3 thou/uL (4.8-10.8)
[2020-06-09 04:28] LABS: Anion Gap 12 mmol/L (10-20); BUN (Urea Nitrogen) 19 mg/dL (8.9-20.6); CRP (Inflammatory) Less than 0.50 mg/dL (= or < 0.5); Calc. Creatinine Clearance 136 mL/min (70-130); Calcium 7.6 mg/dL (7.8-10.44); Carbon Dioxide 25 mmol/L (22-29); Chloride 102 mmol/L (98-107); Glucose 312 mg/dL (70-105); Potassium 4.7 mmol/L (3.5-5.1); Sodium 134 mmol/L (136-145)
[2020-06-09] MEDS: fentaNYL Citrate/PF 2,000 MCG in Sodium Chloride 0.9% 60 ML IV SCH (06:07)
[2020-06-09] MEDS: Propofol 1,000 MG/100 ML VIAL IV PRN ×2 (06:27→08:12)
--- NOTE | 2020-06-09 07:47 | PDOC.HOSPP ---
- Subjective Encounter Date: 06/09/20 (f/u resp failure) Encounter Time: 07:43 Subjective: 50 y/ol male with no significant medical history admitted for resp failure due to covid pneumonia - Pt remains intubated and sedated. No overnight events per RN. Yesterday in coversation with a air carrier inspector, not much change was anticipated with diet/free water to help with elevated blood sugars. - Objective Vital Signs & Weight: Vital Signs (12 hours) Temp Pulse Resp BP Pulse Ox 06/09/20 06:00 14 06/09/20 04:00 96.9 F L 14 06/09/20 03:37 74 06/09/20 02:00 22 H 06/09/20 00:00 97.0 F L 19 06/08/20 23:45 59 L 122/82 06/08/20 22:00 20 06/08/20 20:00 98.7 F 14 100 Weight Admit Weight 183 lb 4.8 oz Weight 155 lb 10.342 oz Most Recent Monitor Data Heart Rate from ECG 66 NIBP 112/72 NIBP BP-Mean 85 Respiration from ECG 14 SpO2 96 I&O: 06/08/20 06/09/20 06/10/20 06:59 06:59 06:59 Intake Total 2269.1 2245.8 Output Total 2645 3040 50 Balance -375.9 -794.2 -50 Result Diagrams: 06/09/20 03:41 06/09/20 03:41 Additional Labs: Accuchecks 06/09/20 06/08/20 06/08/20 03:41 19:34 16:15 POC Glucose 279 H 245 H 260 H 06/08/20 10:37 POC Glucose 208 H Hospitalist ROS - Medication Medications: Active Medications Generic Name Dose Route Start Last Admin Trade Name Freq PRN Reason Stop Dose Admin Acetaminophen 650 mg 05/23/20 14:17 05/31/20 10:17 Acetaminophen 325 Mg Tab PO 650 mg Q4H PRN Administration Headache/Fever/Mild Pain (1-3) Albuterol Sulfate 1 puff 05/25/20 23:43 05/30/20 22:00 Albuterol 200 Puff (6.7gm Inhaler) INH 1 puff Q8H PRN Administration Wheezing Ascorbic Acid 1,000 mg 05/26/20 09:00 06/08/20 08:53 Ascorbic Acid 500 Mg Chewable Tablet PO 1,000 mg DAILY ISABEL Administration Cholecalciferol 400 units 05/26/20 09:00 06/08/20 08:53 Cholecalciferol (Vitamin D3) 400 Units Tab PO 400 units DAILY ISABEL Administration Dexamethasone 10 mg 06/03/20 21:00 06/08/20 21:06 Dexamethasone 10 Mg/Ml Vial SLOW IVP 10 mg BID ISABEL Administration Docusate Sodium 100 mg 06/08/20 09:00 06/08/20 21:07 Docusate 100 Mg Cap PO 100 mg BID ISABEL Administration Enoxaparin Sodium 40 mg 05/23/20 21:00 06/08/20 21:06 Enoxaparin Sodium 40 Mg/0.4 Ml Syringe SC 40 mg 899,2099 ISABEL Administration Famotidine 20 mg 06/07/20 21:00 06/08/20 21:06 Famotidine 20 Mg Tab PO 20 mg Q12HR ISABEL Administration Guaifenesin/Codeine Phosphate 10 ml 05/28/20 11:54 05/30/20 21:52 Guaifenesin/Codeine Phosphate 200 Mg/20 Mg 10 Ml Ud Cup PO 10 ml Q6H PRN Administration Cough Fentanyl Citrate 2,000 mcg/ 100 mls @ 0 mls/hr 05/31/20 09:30 06/09/20 06:07 Sodium Chloride IV 06/30/20 09:30 100 mls INF ISABEL Administration Protocol Per Protocol Cefepime HCl 1 gm/ Sodium 100 mls @ 200 mls/hr 05/31/20 12:00 06/08/20 23:24 Chloride IVPB 100 mls 1200,2359 ISABEL Administration Doxycycline Hyclate 100 mg/ 100 mls @ 100 mls/hr 05/31/20 13:00 06/09/20 00:14 Sodium Chloride IVPB 100 mls 0100,1300 ISABEL Administration Insulin Glargine 20 units/ 0.2 mls @ 0 mls/hr 06/08/20 21:00 06/08/20 21:06 Miscellaneous Medication SC 0.2 mls HS ISABEL Administration Insulin Human Lispro 0 units 06/03/20 18:45 06/09/20 03:56 Humalog 300 Units/3 Ml Vial SC 4 unit .MILD SLIDING SCALE PRN Administration MILD SLIDING SCALE Protocol Lorazepam 2 mg 05/31/20 09:30 06/09/20 06:28 Lorazepam 2 Mg/Ml Vial SLOW IVP 06/30/20 09:30 2 mg Q1H PRN Administration Breakthrough agitation Polyethylene Glycol 17 gm 06/08/20 09:00 06/08/20 08:53 Polyethylene Glycol 3350 17 Gm Packet PO 17 gm DAILY ISABEL Administration Propofol 1,000 mg 05/31/20 09:30 06/09/20 06:27 Propofol 1,000 Mg/100 Ml Vial IV 06/30/20 09:30 1,000 mg INF PRN Administration TO ACHIEVE GOAL RASS Protocol Throat Lozenges 1 aaliyah 05/28/20 11:54 05/28/20 15:19 Cepastat Lozenges 1 Aaliyah PO 1 aaliyah Q2H PRN Administration Sore Throat Vecuronium [place] 10 mg 05/31/20 09:24 06/02/20 05:47 Vecuronium 10 Mg Vial IV 10 mg Q1H PRN Administration Anxiety/Agitation Zinc Sulfate 220 mg 05/26/20 09:00 06/08/20 08:53 Zinc Sulfate 220 Mg Cap PO 220 mg DAILY ISABEL Administration - Exam General Appearance: NAD General - other findings: intubated, sedated Heart: RRR, no murmur Respiratory: no wheezes, no rales, no ronchi Respiratory - other findings: shallow breaths Gastrointestinal: soft, non-distended, normal bowel sounds Extremities: no cyanosis, no clubbing, no edema Neurological - other findings: unable to assess Musculoskeletal - other findings: unable to assess Psychiatric - other findings: unable to assess Hosp A/P (1) Pneumonia due to COVID-19 virus Code(s): U07.1 - COVID-19; J12.89 - OTHER VIRAL PNEUMONIA Status: Acute (2) Respiratory failure with hypoxia Code(s): J96.91 - RESPIRATORY FAILURE, UNSPECIFIED WITH HYPOXIA Status: Acute (3) Elevated blood sugar Code(s): R73.9 - HYPERGLYCEMIA, UNSPECIFIED Status: Acute (4) Hyponatremia Code(s): E87.1 - HYPO-OSMOLALITY AND HYPONATREMIA Status: Acute - Plan Acute respiratory failure secondary to COVID-19 pneumonia - Status post intubation on 05/31/2019 - Treatment for COVID-19 pneumonia treatments including Decadron, and ancillary treatments with Vit C/D/Zinc - s/p convalescent plasma and remdesivir - Pul/ID consulted, appreciate input. - on antibiotics Cefepime and doxycycline - cont supportive cares - palliative care consult appreciated DM 2, new dx - blood sugars not optimally controlled - lantus increased to 20 units last night - add lantus 15 units daily starting today Pseudohyponatremia - sodium corrects when factoring in blood sugar - can return free water flush to 65 ml q4h - what pt was on previously GI function - continue bowel meds dvt prophy - lovenox gi prophy - famotidine code status - full Pt remains at high risk in current condition.
[2020-06-09] MEDS: Zinc Sulfate 220 MG CAP PO SCH (08:11)
[2020-06-09] MEDS: Docusate 100 MG CAP PO SCH ×2 (08:11→20:26)
[2020-06-09] MEDS: Cholecalciferol (Vitamin D3) 400 UNITS TAB PO SCH (08:11)
[2020-06-09] MEDS: Ascorbic Acid 500 mg Chewable Tablet PO SCH (08:11)
[2020-06-09] MEDS: Polyethylene Glycol 3350 17 GM Packet PO SCH (08:12)
[2020-06-09] MEDS: Famotidine 20 MG TAB PO SCH ×2 (08:12→20:26)
[2020-06-09] MEDS: Enoxaparin Sodium 40 MG/0.4 ML SYRINGE SC SCH ×2 (08:12→20:26)
[2020-06-09] MEDS: Dexamethasone 10 MG/ML VIAL SLOW IVP SCH ×2 (08:17→20:26)
[2020-06-09] MEDS ORDERED: Insulin Glargine 15 UNITS in Pre-Filled Syringe 1 EACH SC SCH (09:00)
--- NOTE | 2020-06-09 10:24 | RAD ---
AP CHEST: Date: 06/09/2020 INDICATION: Pneumonia follow-up. CCU follow-up. On ventilator. COMPARISON: 06/08/2020. FINDINGS: ET tube and NG tube unchanged. Bilateral hazy interstitial and patchy alveolar infiltrates with evide nce of small effusions. IMPRESSION: Not significantly changed from yesterday. POS: [facility]
[2020-06-09] MEDS: Cefepime 1 GM in Sodium Chloride 0.9% 100 ML IVPB SCH (11:17)
--- NOTE | 2020-06-09 17:04 | PRG ---
DATE OF SERVICE: 06/09/2020 SUBJECTIVE: Mr. Mercedes remains stable. We have decreased his ventilatory rate to 6 today and his PEEP down to five. OBJECTIVE: VITAL SIGNS: Heart rate is 93, blood pressure 126/80, FiO2 is at 35%. LUNGS: Remarkable for equal breath sounds. HEART: Regular rhythm. ABDOMEN: Soft. EXTREMITIES: Without clubbing, cyanosis, or edema. LABORATORY DATA: Reviewed, reveals that his COVID serology was positive on 05/18, so his isolation can be discontinued. He is probably a candidate to be extubated in the morning. Critical care time 30 min. Job ID: [id number] MTDD
[2020-06-09] MEDS: Insulin Glargine 20 UNITS in Pre-Filled Syringe 1 EACH SC SCH (20:26)
[2020-06-10] MEDS: fentaNYL Citrate/PF 2,000 MCG in Sodium Chloride 0.9% 60 ML IV SCH ×2 (00:13→17:22)
[2020-06-10] MEDS: Propofol 1,000 MG/100 ML VIAL IV PRN ×3 (00:41→20:27)
[2020-06-10 05:07] LABS: #Lymphocytes 0.4 thou/uL (1.20-3.40); #Monocytes 0.4 thou/uL (0.11-0.59); #Neutrophils 11.1 thou/uL (1.40-6.50); %Basophils 0.3 % (0.0-1.0); %Eosinophils 0.1 % (0.0-10.0); %Lymphocytes 3.4 % (21.0-51.0); %Monocytes 3.5 % (0.0-10.0); %Neutrophils 92.8 % (42.0-75.0); Hemoglobin 14.4 g/dL (14.0-18.0); Mean Corpuscular HGB CONC 34.4 g/dL (32.0-36.0); Mean Corpuscular Hemoglobin 30.9 pg (27.0-31.0); Mean Corpuscular Volume 89.7 fL (78.0-98.0); Mean Platelet Volume 8.8 fL (7.4-10.4); Platelet Count 128 thou/uL (130-400); RBC Distribution Width 12.7 % (11.5-14.5); Red Blood Cell (RBC) Count 4.66 mill/uL (4.70-6.10)
[2020-06-10] MEDS: HumaLOG 300 UNITS/3 ML VIAL SC PRN ×4 (05:26→20:31)
[2020-06-10 05:31] LABS: Anion Gap 12 mmol/L (10-20); BUN (Urea Nitrogen) 19 mg/dL (8.9-20.6); Calc. Creatinine Clearance 145 mL/min (70-130); Calcium 7.7 mg/dL (7.8-10.44); Carbon Dioxide 24 mmol/L (22-29); Chloride 99 mmol/L (98-107); Glucose 253 mg/dL (70-105); Potassium 4.4 mmol/L (3.5-5.1); Sodium 131 mmol/L (136-145)
--- NOTE | 2020-06-10 07:52 | PDOC.HOSPP ---
- Subjective Encounter Date: 06/10/20 (f/u resp failure) Encounter Time: 07:49 Subjective: 50 y/ol male with no significant medical history admitted for resp failure due to covid pneumonia - Pt remains intubated and sedated. Pt remains intubated/sedated - vent rate turned down to 6 as part of weaning towards extubation. No BM despite colace and miralax scheduled. - Objective Vital Signs & Weight: Vital Signs (12 hours) Temp Pulse Resp BP Pulse Ox 06/10/20 07:04 76 111/83 06/10/20 07:00 97.7 F 06/10/20 06:00 13 06/10/20 04:02 104 H 06/10/20 04:00 98.0 F 15 06/10/20 02:00 15 06/10/20 00:27 82 139/90 06/10/20 00:00 98.2 F 13 06/09/20 22:00 14 06/09/20 20:00 98.0 F 19 97 Weight Admit Weight 183 lb 4.8 oz Weight 151 lb 0.266 oz Most Recent Monitor Data Heart Rate from ECG 83 NIBP 111/83 NIBP BP-Mean 92 Respiration from ECG 26 SpO2 98 I&O: 06/09/20 06/10/20 06/11/20 06:59 06:59 06:59 Intake Total 2245.8 2476 Output Total 3040 2925 125 Balance -794.2 -449 -125 Result Diagrams: 06/10/20 04:58 06/10/20 04:58 Additional Labs: Accuchecks 06/10/20 06/09/20 06/09/20 04:59 20:28 17:17 POC Glucose 236 H 223 H 241 H 06/09/20 10:11 POC Glucose 192 H EKG Reviewed by me: Yes (tele - sinus 60's) Hospitalist ROS - Medication Medications: Active Medications Generic Name Dose Route Start Last Admin Trade Name Freq PRN Reason Stop Dose Admin Acetaminophen 650 mg 05/23/20 14:17 05/31/20 10:17 Acetaminophen 325 Mg Tab PO 650 mg Q4H PRN Administration Headache/Fever/Mild Pain (1-3) Albuterol Sulfate 1 puff 05/25/20 23:43 05/30/20 22:00 Albuterol 200 Puff (6.7gm Inhaler) INH 1 puff Q8H PRN Administration Wheezing Ascorbic Acid 1,000 mg 05/26/20 09:00 06/09/20 08:11 Ascorbic Acid 500 Mg Chewable Tablet PO 1,000 mg DAILY ISABEL Administration Cholecalciferol 400 units 05/26/20 09:00 06/09/20 08:11 Cholecalciferol (Vitamin D3) 400 Units Tab PO 400 units DAILY ISABEL Administration Dexamethasone 10 mg 06/03/20 21:00 06/09/20 20:26 Dexamethasone 10 Mg/Ml Vial SLOW IVP 10 mg BID ISABEL Administration Docusate Sodium 100 mg 06/08/20 09:00 06/09/20 20:26 Docusate 100 Mg Cap PO 100 mg BID ISABEL Administration Enoxaparin Sodium 40 mg 05/23/20 21:00 06/09/20 20:26 Enoxaparin Sodium 40 Mg/0.4 Ml Syringe SC 40 mg 0900,2100 ISABEL Administration Famotidine 20 mg 06/07/20 21:00 06/09/20 20:26 Famotidine 20 Mg Tab PO 20 mg Q12HR ISABEL Administration Guaifenesin/Codeine Phosphate 10 ml 05/28/20 11:54 05/30/20 21:52 Guaifenesin/Codeine Phosphate 200 Mg/20 Mg 10 Ml Ud Cup PO 10 ml Q6H PRN Administration Cough Fentanyl Citrate 2,000 mcg/ 100 mls @ 0 mls/hr 05/31/20 09:30 06/10/20 00:13 Sodium Chloride IV 06/30/20 09:30 100 mls INF ISABEL Administration Protocol Per Protocol Insulin Glargine 20 units/ 0.2 mls @ 0 mls/hr 06/08/20 21:00 06/09/20 20:26 Miscellaneous Medication SC 0.2 mls HS ISABEL Administration Insulin Human Lispro 0 units 06/03/20 18:45 06/10/20 05:26 Humalog 300 Units/3 Ml Vial SC 3 unit .MILD SLIDING SCALE PRN Administration MILD SLIDING SCALE Protocol Lorazepam 2 mg 05/31/20 09:30 06/09/20 06:28 Lorazepam 2 Mg/Ml Vial SLOW IVP 06/30/20 09:30 2 mg Q1H PRN Administration Breakthrough agitation Polyethylene Glycol 17 gm 06/08/20 09:00 06/09/20 08:12 Polyethylene Glycol 3350 17 Gm Packet PO 17 gm DAILY ISABEL Administration Propofol 1,000 mg 05/31/20 09:30 06/10/20 00:41 Propofol 1,000 Mg/100 Ml Vial IV 06/30/20 09:30 1,000 mg INF PRN Administration TO ACHIEVE GOAL RASS Protocol Throat Lozenges 1 aaliyah 05/28/20 11:54 05/28/20 15:19 Cepastat Lozenges 1 Aaliyah PO 1 aaliyah Q2H PRN Administration Sore Throat Vecuronium Whipple 10 mg 05/31/20 09:24 06/02/20 05:47 Vecuronium 10 Mg Vial IV 10 mg Q1H PRN Administration Anxiety/Agitation Zinc Sulfate 220 mg 05/26/20 09:00 06/09/20 08:11 Zinc Sulfate 220 Mg Cap PO 220 mg DAILY ISABEL Administration - Exam General Appearance: NAD General - other findings: intubated/sedated Heart: RRR, no murmur Respiratory: no wheezes, no rales, no ronchi Gastrointestinal: soft, non-tender, non-distended, normal bowel sounds Extremities: no cyanosis, no clubbing, no edema Neurological - other findings: unable to assess Musculoskeletal - other findings: unable to assess Psychiatric - other findings: unable to assess Hosp A/P (1) Pneumonia due to COVID-19 virus Code(s): U07.1 - COVID-19; J12.89 - OTHER VIRAL PNEUMONIA Status: Acute (2) Respiratory failure with hypoxia Code(s): J96.91 - RESPIRATORY FAILURE, UNSPECIFIED WITH HYPOXIA Status: Acute (3) Elevated blood sugar Code(s): R73.9 - HYPERGLYCEMIA, UNSPECIFIED Status: Acute (4) Hyponatremia Code(s): E87.1 - HYPO-OSMOLALITY AND HYPONATREMIA Status: Acute - Plan Acute respiratory failure secondary to COVID-19 pneumonia - Status post intubation on 05/31/2019 - Treatment for COVID-19 pneumonia treatments including Decadron, and ancillary treatments with Vit C/D/Zinc - s/p convalescent plasma and remdesivir - Pul/ID consulted, appreciate input. - abx d/c - cont supportive cares - palliative care consult appreciated DM 2, new dx - blood sugars not optimally controlled - will continue to adjust lantus - changed to 20 units BID Pseudohyponatremia - sodium corrects to 135 for glucose - change free water to 50 ml q4h GI function - continue scheduled bowel meds and reglan four times daily dvt prophy - lovenox gi prophy - famotidine code status - full Pt remains at high risk in current condition.
[2020-06-10] MEDS ORDERED: Metoclopramide 10 MG/10 ML UDCUP PO SCH (08:00)
[2020-06-10] MEDS: Polyethylene Glycol 3350 17 GM Packet PO SCH (09:02)
[2020-06-10] MEDS: Enoxaparin Sodium 40 MG/0.4 ML SYRINGE SC SCH ×2 (09:02→20:27)
[2020-06-10] MEDS: Cholecalciferol (Vitamin D3) 400 UNITS TAB PO SCH (09:03)
[2020-06-10] MEDS: Docusate 100 MG CAP PO SCH ×2 (09:03→20:28)
[2020-06-10] MEDS: Famotidine 20 MG TAB PO SCH ×2 (09:03→20:28)
[2020-06-10] MEDS: Zinc Sulfate 220 MG CAP PO SCH (09:03)
[2020-06-10] MEDS: Dexamethasone 10 MG/ML VIAL SLOW IVP SCH (09:03)
[2020-06-10] MEDS: Ascorbic Acid 500 mg Chewable Tablet PO SCH (09:03)
[2020-06-10] MEDS: Insulin Glargine 20 UNITS in Pre-Filled Syringe 1 EACH SC SCH ×2 (09:18→20:27)
[2020-06-10] MEDS ORDERED: Dexamethasone 4 mg/ml Vial SLOW IVP SCH (09:30)
--- NOTE | 2020-06-10 09:30 | RAD ---
PORTABLE CHEST: Date: 06/10/2020 PROVIDED CLINICAL HISTORY: Respiratory insufficiency. FINDINGS: Comparison made with examination dated 06/09/2020. Significant interval change with respect to the prior examination is not apparent. IMPRESSION: As above. POS: NILESH
--- NOTE | 2020-06-10 09:49 | PRG ---
DATE OF SERVICE: 06/10/2020 SUBJECTIVE: This morning, he is more awake, responsive. OBJECTIVE: VITAL SIGNS: Temperature is 98, pulse 70, blood pressure 133/72, saturations 96%. EXTREMITIES: Moves both extremities very appropriate. CHEST: No wheezing. No crackles. CARDIAC: Normal S1 and S2. No gallops. ABDOMEN: No masses. IMAGING DATA: X-ray still shows bilateral infiltrates. ASSESSMENT: Cook positive pneumonia; respiratory failure, slowly getting better; and severe deconditioning. PLAN: I am going to go ahead and decrease his Decadron. Continue steroids. Hopefully, we can wean him and extubate in the next 24-48 hours. One half hour of critical care time. Job ID: [id number]
[2020-06-10] MEDS: Metoclopramide 10 MG/10 ML UDCUP PO SCH ×3 (11:32→20:28)
[2020-06-10] MEDS: Lorazepam 2 MG/ML VIAL SLOW IVP PRN ×2 (13:32→22:16)
[2020-06-10] MEDS: Dexamethasone 4 mg/ml Vial SLOW IVP SCH (20:28)
[2020-06-11] MEDS: Lorazepam 2 MG/ML VIAL SLOW IVP PRN ×2 (04:20→16:54)
[2020-06-11] MEDS: HumaLOG 300 UNITS/3 ML VIAL SC PRN ×3 (04:57→16:57)
[2020-06-11] MEDS: Propofol 1,000 MG/100 ML VIAL IV PRN (05:02)
[2020-06-11 05:15] LABS: #Lymphocytes 0.3 thou/uL (1.20-3.40); #Monocytes 0.7 thou/uL (0.11-0.59); #Neutrophils 10.6 thou/uL (1.40-6.50); %Basophils 0.4 % (0.0-1.0); %Eosinophils 0.1 % (0.0-10.0); %Lymphocytes 2.2 % (21.0-51.0); %Monocytes 5.8 % (0.0-10.0); %Neutrophils 91.6 % (42.0-75.0); Mean Corpuscular HGB CONC 33.1 g/dL (32.0-36.0); Mean Corpuscular Volume 90.7 fL (78.0-98.0); Mean Platelet Volume 9.3 fL (7.4-10.4); Platelet Count 122 thou/uL (130-400); RBC Distribution Width 12.8 % (11.5-14.5); Red Blood Cell (RBC) Count 4.33 mill/uL (4.70-6.10); White Blood Cell (WBC) Count 11.5 thou/uL (4.8-10.8)
[2020-06-11 05:39] LABS: Anion Gap 11 mmol/L (10-20); BUN (Urea Nitrogen) 20 mg/dL (8.9-20.6); Calc. Creatinine Clearance 157 mL/min (70-130); Calcium 7.6 mg/dL (7.8-10.44); Carbon Dioxide 29 mmol/L (22-29); Chloride 100 mmol/L (98-107); Glucose 205 mg/dL (70-105); Potassium 4.3 mmol/L (3.5-5.1); Sodium 136 mmol/L (136-145)
[2020-06-11] MEDS: Metoclopramide 10 MG/10 ML UDCUP PO SCH ×4 (06:29→20:03)
--- NOTE | 2020-06-11 07:58 | RAD ---
XR Chest 1 View Portable History: Ventilated patient Comparison: Radiograph prior day Findings: Patient is intubated with endotracheal tube tip above the shanice 1.6 cm. The peripheral and patchy perihilar opacities are similar. No pneumothorax. Enteric tube tip below diaphragm although out of field of view. Impression: Similar examination of the chest without improved lung aeration.
[2020-06-11] MEDS: Ascorbic Acid 500 mg Chewable Tablet PO SCH (09:05)
[2020-06-11] MEDS: Famotidine 20 MG TAB PO SCH ×2 (09:05→20:04)
[2020-06-11] MEDS: Cholecalciferol (Vitamin D3) 400 UNITS TAB PO SCH (09:05)
[2020-06-11] MEDS: Enoxaparin Sodium 40 MG/0.4 ML SYRINGE SC SCH ×2 (09:06→20:02)
[2020-06-11] MEDS: Dexamethasone 4 mg/ml Vial SLOW IVP SCH ×2 (09:06→20:03)
[2020-06-11] MEDS: Docusate 100 MG CAP PO SCH ×2 (09:06→20:04)
[2020-06-11] MEDS: Zinc Sulfate 220 MG CAP PO SCH (09:06)
[2020-06-11] MEDS: Polyethylene Glycol 3350 17 GM Packet PO SCH (09:06)
[2020-06-11] MEDS: Insulin Glargine 20 UNITS in Pre-Filled Syringe 1 EACH SC SCH ×2 (09:06→20:02)
[2020-06-11] MEDS ORDERED: Furosemide 20 MG/2 ML VIAL IVP SCH (09:15)
[2020-06-11] MEDS: Cefepime 1 GM in Sodium Chloride 0.9% 100 ML IVPB SCH ×2 (09:31→20:03)
--- NOTE | 2020-06-11 09:53 | PRG ---
DATE OF SERVICE: 06/11/2020 SUBJECTIVE: This morning, he is awake, alert, responsive. He is on fentanyl and Diprivan. OBJECTIVE: VITAL SIGNS: Temperature 97, his pulse is 105, respiratory rate 26, and blood pressure . CHEST: Rhonchi, crackles. CARDIAC: Sinus tach. ABDOMEN: Soft. X-ray shows extensive bilateral pulmonary infiltrates. ASSESSMENT: Coronavirus positive pneumonia, respiratory failure. He is on CPAP, but his x-ray looks not much improved, concern about extubating today. PLAN: I am going to start empiric broad-spectrum antibiotics. Continue steroids. Trial of Lasix. One-half hour of critical care time. Job ID: [id number]
[2020-06-11] MEDS ORDERED: Fentanyl CADD 0 ML ONE (12:13)
--- NOTE | 2020-06-11 12:13 | PDOC.HOSPP ---
- Subjective Encounter Date: 06/11/20 Encounter Time: 12:07 Subjective: sleepy, but responsive. intubated - Objective Vital Signs & Weight: Vital Signs (12 hours) Temp Pulse Resp BP Pulse Ox 06/11/20 10:53 88 128/88 06/11/20 10:00 98.1 F 21 H 06/11/20 08:00 20 06/11/20 07:11 99 06/11/20 06:54 72 104/69 06/11/20 06:00 13 06/11/20 04:00 97.0 F L 12 06/11/20 02:18 77 110/73 06/11/20 02:00 14 Weight Admit Weight 183 lb 4.8 oz Weight 154 lb 15.759 oz Most Recent Monitor Data Heart Rate from ECG 89 NIBP 115/72 NIBP BP-Mean 86 Respiration from ECG 24 SpO2 95 I&O: 06/10/20 06/11/20 06/12/20 06:59 06:59 06:59 Intake Total 2476 2164 210 Output Total 6573 6285 1724 Balance -449 -980 -7137 Result Diagrams: 06/11/20 04:52 06/11/20 04:52 Additional Labs: Accuchecks 06/11/20 06/11/20 06/10/20 11:04 04:57 20:30 POC Glucose 156 H 186 H 184 H 06/10/20 16:35 POC Glucose 244 H Radiology Reviewed by me: Yes (CXR- bilat dense infiltrates, ET tube) Hospitalist ROS - Medication Medications: Active Medications Generic Name Dose Route Start Last Admin Trade Name Freq PRN Reason Stop Dose Admin Acetaminophen 650 mg 05/23/20 14:17 05/31/20 10:17 Acetaminophen 325 Mg Tab PO 650 mg Q4H PRN Administration Headache/Fever/Mild Pain (1-3) Albuterol Sulfate 1 puff 05/25/20 23:43 05/30/20 22:00 Albuterol 200 Puff (6.7gm Inhaler) INH 1 puff Q8H PRN Administration Wheezing Ascorbic Acid 1,000 mg 05/26/20 09:00 06/11/20 09:05 Ascorbic Acid 500 Mg Chewable Tablet PO 1,000 mg DAILY ISABEL Administration Cholecalciferol 400 units 05/26/20 09:00 06/11/20 09:05 Cholecalciferol (Vitamin D3) 400 Units Tab PO 400 units DAILY ISABEL Administration Dexamethasone 6 mg 06/10/20 21:00 06/11/20 09:06 Dexamethasone 4 Mg/Ml Vial SLOW IVP 6 mg BID ISABEL Administration Docusate Sodium 100 mg 06/08/20 09:00 06/11/20 09:06 Docusate 100 Mg Cap PO 100 mg BID ISABEL Administration Enoxaparin Sodium 40 mg 05/23/20 21:00 06/11/20 09:06 Enoxaparin Sodium 40 Mg/0.4 Ml Syringe SC 40 mg 09,2099 ISABEL Administration Famotidine 20 mg 06/07/20 21:00 06/11/20 09:05 Famotidine 20 Mg Tab PO 20 mg Q12HR ISABEL Administration Guaifenesin/Codeine Phosphate 10 ml 05/28/20 11:54 05/30/20 21:52 Guaifenesin/Codeine Phosphate 200 Mg/20 Mg 10 Ml Ud Cup PO 10 ml Q6H PRN Administration Cough Fentanyl Citrate 2,000 mcg/ 100 mls @ 0 mls/hr 05/31/20 09:30 06/10/20 17:22 Sodium Chloride IV 06/30/20 09:30 100 mls INF ISABEL Administration Protocol Per Protocol Insulin Glargine 20 units/ 0.2 mls @ 0 mls/hr 06/08/20 21:00 06/10/20 20:27 Miscellaneous Medication SC 0.2 mls HS ISABEL Administration Insulin Glargine 20 units/ 0.2 mls @ 0 mls/hr 06/10/20 09:00 06/11/20 09:06 Miscellaneous Medication SC 0.2 mls QAM ISABEL Administration Cefepime HCl 1 gm/ Sodium 100 mls @ 200 mls/hr 06/11/20 09:00 06/11/20 09:31 Chloride IVPB 100 mls Q12HR ISABEL Administration Insulin Human Lispro 0 units 06/03/20 18:45 06/11/20 11:08 Humalog 300 Units/3 Ml Vial SC 2 unit .MILD SLIDING SCALE PRN Administration MILD SLIDING SCALE Protocol Lorazepam 2 mg 05/31/20 09:30 06/11/20 04:20 Lorazepam 2 Mg/Ml Vial SLOW IVP 06/30/20 09:30 2 mg Q1H PRN Administration Breakthrough agitation Metoclopramide HCl 5 mg 06/10/20 11:30 06/11/20 06:29 Metoclopramide 10 Mg/10 Ml Udcup PO 5 mg ACHS ISABEL Administration Polyethylene Glycol 17 gm 06/08/20 09:00 06/11/20 09:06 Polyethylene Glycol 3350 17 Gm Packet PO 17 gm DAILY ISABEL Administration Propofol 1,000 mg 05/31/20 09:30 06/11/20 05:02 Propofol 1,000 Mg/100 Ml Vial IV 06/30/20 09:30 1,000 mg INF PRN Administration TO ACHIEVE GOAL RASS Protocol Throat Lozenges 1 aaliyah 05/28/20 11:54 05/28/20 15:19 Cepastat Lozenges 1 Aaliyah PO 1 aaliyah Q2H PRN Administration Sore Throat Vecuronium [place] 10 mg 05/31/20 09:24 06/02/20 05:47 Vecuronium 10 Mg Vial IV 10 mg Q1H PRN Administration Anxiety/Agitation Zinc Sulfate 220 mg 05/26/20 09:00 06/11/20 09:06 Zinc Sulfate 220 Mg Cap PO 220 mg DAILY ISABEL Administration - Exam Neck: no JVD Heart: RRR, no murmur Respiratory: CTAB Gastrointestinal: soft, non-distended, normal bowel sounds Extremities: no edema Hosp A/P (1) Pneumonia due to COVID-19 virus Code(s): U07.1 - COVID-19; J12.89 - OTHER VIRAL PNEUMONIA Status: Acute (2) Respiratory failure with hypoxia Code(s): J96.91 - RESPIRATORY FAILURE, UNSPECIFIED WITH HYPOXIA Status: Acute (3) Elevated blood sugar Code(s): R73.9 - HYPERGLYCEMIA, UNSPECIFIED Status: Acute (4) Hyponatremia Code(s): E87.1 - HYPO-OSMOLALITY AND HYPONATREMIA Status: Acute (5) DM type 2 (diabetes mellitus, type 2) Status: Acute Qualifiers: Diabetes mellitus predatory animal exterminator insulin use: without retirement use Diabetes mellitus complication status: without complication Qualified Code(s): E11.9 - Type 2 diabetes mellitus without complications - Plan on CPAP, not ready for extubation on iv decadron accu/ss/lantus nutrition discuss with scrub woman
[2020-06-11] MEDS ORDERED: Fentanyl CADD 100 ML ONE (12:14)
[2020-06-12] MEDS ORDERED: Fentanyl CADD 100 ML ONE (02:24)
--- NOTE | 2020-06-12 07:41 | RAD ---
EXAM: CHEST ONE VIEW HISTORY: On ventilator COMPARISON: 06/11/2020 FINDINGS: Endotracheal tube and nasogastric tubes remain in place. Increased interstitial and alveolar opacitie s are again seen within the lungs bilaterally which do appear mildly improved when compared to the prior study some of which may be related to improved depth of inspiration. No pleural effusion is see n. No other interval change. IMPRESSION: Persistent interstitial and patchy alveolar opacities suggestive of Covid pneumonia. There is suggest ion of mild improvement in the opacities, but this may be related to better depth of inspiration.
[2020-06-12 08:38] LABS: #Eosinphils 0.1 thou/uL (0.0-0.7); #Lymphocytes 0.6 thou/uL (1.20-3.40); #Monocytes 0.7 thou/uL (0.11-0.59); %Basophils 0.1 % (0.0-1.0); %Eosinophils 0.8 % (0.0-10.0); %Lymphocytes 4.9 % (21.0-51.0); %Monocytes 6.1 % (0.0-10.0)
[2020-06-12 08:39] LABS: Mean Corpuscular Hemoglobin 30.3 pg (27.0-31.0); Mean Corpuscular Volume 91.8 fL (78.0-98.0); Mean Platelet Volume 10.5 fL (7.4-10.4); RBC Distribution Width 13.1 % (11.5-14.5); Red Blood Cell (RBC) Count 4.94 mill/uL (4.70-6.10); White Blood Cell (WBC) Count 11.3 thou/uL (4.8-10.8)
[2020-06-12] MEDS ORDERED: DC Sedation Protocol FS ONE (09:29)
[2020-06-12] MEDS ORDERED: ALPRAZolam 0.25 MG TAB PO PRN (09:29)
[2020-06-12] MEDS: Metoclopramide 10 MG/10 ML UDCUP PO SCH (09:32)
[2020-06-12] MEDS: Ascorbic Acid 500 mg Chewable Tablet PO SCH (09:40)
[2020-06-12] MEDS: Polyethylene Glycol 3350 17 GM Packet PO SCH (09:40)
[2020-06-12] MEDS: Famotidine 20 MG TAB PO SCH ×2 (09:40→21:25)
[2020-06-12] MEDS: Cholecalciferol (Vitamin D3) 400 UNITS TAB PO SCH (09:40)
[2020-06-12] MEDS: Docusate 100 MG CAP PO SCH ×2 (09:40→21:25)
[2020-06-12 09:50] LABS: MDiff Complete? YES; Platelet Count 82 thou/uL (130-400); Platelet Morphology Comment Appears Decreased; Polychromasia SLIGHT = 2-3 cells (100X) (0-2/hpf)
[2020-06-12 09:53] LABS: Anion Gap 13 mmol/L (10-20); BUN (Urea Nitrogen) 20 mg/dL (8.9-20.6); Calc. Creatinine Clearance 165 mL/min (70-130); Calcium 7.9 mg/dL (7.8-10.44); Carbon Dioxide 24 mmol/L (22-29); Chloride 102 mmol/L (98-107); Glucose 136 mg/dL (70-105); Potassium 4.4 mmol/L (3.5-5.1); Sodium 135 mmol/L (136-145)
--- NOTE | 2020-06-12 10:19 | PRG ---
DATE OF SERVICE: SUBJECTIVE: Rupinder Mercedes this morning is awake, alert, and responsive. He has been off sedation and CPAP for 48 hours. OBJECTIVE: VITAL SIGNS: Temperature 97, blood pressure 130/74, respiratory rate 18, sats 99%. Is and Os have been good. CHEST: No wheezing, no crackles. CARDIAC: Normal S1. ABDOMEN: No masses. LABORATORY DATA: White count 11,000. His last chemistry shows his numbers were good. ASSESSMENT: Respiratory failure, diabetes, Cook positive pneumonia, day 20 in the hospital. PLAN: We are going to extubate today. Continue PT, supportive care. Continue steroids. Continue antibiotics. Once he is stable, switch over to oral medication. One-half hour of critical care time. Job ID: [id number]
[2020-06-12] MEDS: Enoxaparin Sodium 40 MG/0.4 ML SYRINGE SC SCH ×2 (10:30→21:25)
[2020-06-12] MEDS: Dexamethasone 4 mg/ml Vial SLOW IVP SCH ×2 (10:31→21:25)
[2020-06-12] MEDS: Cefepime 1 GM in Sodium Chloride 0.9% 100 ML IVPB SCH ×2 (10:31→21:24)
[2020-06-12] MEDS: Insulin Glargine 20 UNITS in Pre-Filled Syringe 1 EACH SC SCH ×2 (10:34→21:26)
--- NOTE | 2020-06-12 11:19 | PDOC.HOSPP ---
- Subjective Encounter Date: 06/12/20 Encounter Time: 11:14 Subjective: comfortable. desats with activity. on high flow O2 - Objective Vital Signs & Weight: Vital Signs (12 hours) Temp Pulse Resp BP Pulse Ox 06/12/20 10:22 99 06/12/20 08:00 14 06/12/20 07:03 66 101/70 06/12/20 07:00 97.9 F 06/12/20 06:00 12 06/12/20 04:00 98.3 F 13 06/12/20 02:00 12 06/12/20 00:11 108 H 118/81 06/12/20 00:00 98.0 F 11 L Weight Admit Weight 183 lb 4.8 oz Weight 142 lb 6.698 oz Most Recent Monitor Data Heart Rate from ECG 75 NIBP 116/80 NIBP BP-Mean 92 Respiration from ECG 12 SpO2 98 I&O: 06/11/20 06/12/20 06/13/20 06:59 06:59 06:59 Intake Total 2164 2244.9 50 Output Total 2295 4355 255 Balance -131 -2110.1 -205 Result Diagrams: 06/12/20 08:16 06/12/20 09:26 Additional Labs: Accuchecks 06/12/20 06/12/20 06/11/20 10:34 04:16 20:06 POC Glucose 112 H 208 H 134 H 06/11/20 16:47 POC Glucose 209 H Radiology Reviewed by me: Yes (cxr- bilat infiltrates persist) Hospitalist ROS - Medication Medications: Active Medications Generic Name Dose Route Start Last Admin Trade Name Freq PRN Reason Stop Dose Admin Acetaminophen 650 mg 05/23/20 14:17 05/31/20 10:17 Acetaminophen 325 Mg Tab PO 650 mg Q4H PRN Administration Headache/Fever/Mild Pain (1-3) Albuterol Sulfate 1 puff 05/25/20 23:43 05/30/20 22:00 Albuterol 200 Puff (6.7gm Inhaler) INH 1 puff Q8H PRN Administration Wheezing Ascorbic Acid 1,000 mg 05/26/20 09:00 06/11/20 09:05 Ascorbic Acid 500 Mg Chewable Tablet PO 1,000 mg DAILY ISABEL Administration Cholecalciferol 400 units 05/26/20 09:00 06/11/20 09:05 Cholecalciferol (Vitamin D3) 400 Units Tab PO 400 units DAILY ISABEL Administration Dexamethasone 6 mg 06/10/20 21:00 06/12/20 10:31 Dexamethasone 4 Mg/Ml Vial SLOW IVP 6 mg BID ISABEL Administration Docusate Sodium 100 mg 06/08/20 09:00 06/11/20 20:04 Docusate 100 Mg Cap PO 100 mg BID ISABEL Administration Enoxaparin Sodium 40 mg 05/23/20 21:00 06/12/20 10:30 Enoxaparin Sodium 40 Mg/0.4 Ml Syringe SC 40 mg 09,2099 ISABEL Administration Famotidine 20 mg 06/07/20 21:00 06/11/20 20:04 Famotidine 20 Mg Tab PO 20 mg Q12HR ISABEL Administration Guaifenesin/Codeine Phosphate 10 ml 05/28/20 11:54 05/30/20 21:52 Guaifenesin/Codeine Phosphate 200 Mg/20 Mg 10 Ml Ud Cup PO 10 ml Q6H PRN Administration Cough Insulin Glargine 20 units/ 0.2 mls @ 0 mls/hr 06/08/20 21:00 06/11/20 20:02 Miscellaneous Medication SC 0.2 mls HS ISABEL Administration Insulin Glargine 20 units/ 0.2 mls @ 0 mls/hr 06/10/20 09:00 06/12/20 10:34 Miscellaneous Medication SC 0.2 mls QAM ISABEL Administration Cefepime HCl 1 gm/ Sodium 100 mls @ 200 mls/hr 06/11/20 09:00 06/12/20 10:31 Chloride IVPB 100 mls Q12HR ISABEL Administration Insulin Human Lispro 0 units 06/03/20 18:45 06/11/20 16:57 Humalog 300 Units/3 Ml Vial SC 3 unit .MILD SLIDING SCALE PRN Administration MILD SLIDING SCALE Protocol Morphine Sulfate 2 mg 05/31/20 09:30 06/11/20 21:25 Morphine 2 Mg/Ml Vial SLOW IVP 06/30/20 09:30 2 mg Q1H PRN Administration Breakthrough Pain/Agitation Polyethylene Glycol 17 gm 06/08/20 09:00 06/11/20 09:06 Polyethylene Glycol 3350 17 Gm Packet PO 17 gm DAILY ISABEL Administration Throat Lozenges 1 aaliyah 05/28/20 11:54 05/28/20 15:19 Cepastat Lozenges 1 Aaliyah PO 1 aaliyah Q2H PRN Administration Sore Throat Zinc Sulfate 220 mg 05/26/20 09:00 06/11/20 09:06 Zinc Sulfate 220 Mg Cap PO 220 mg DAILY ISABEL Administration - Exam General Appearance: awake alert Neck: no JVD Heart: RRR, no murmur Respiratory - other findings: coarse BS, post fine rales Gastrointestinal: soft, non-tender, normal bowel sounds Extremities: no edema Hosp A/P (1) Pneumonia due to COVID-19 virus Code(s): U07.1 - COVID-19; J12.89 - OTHER VIRAL PNEUMONIA Status: Acute (2) Respiratory failure with hypoxia Code(s): J96.91 - RESPIRATORY FAILURE, UNSPECIFIED WITH HYPOXIA Status: Acute (3) Elevated blood sugar Code(s): R73.9 - HYPERGLYCEMIA, UNSPECIFIED Status: Acute (4) Hyponatremia Code(s): E87.1 - HYPO-OSMOLALITY AND HYPONATREMIA Status: Acute (5) DM type 2 (diabetes mellitus, type 2) Status: Acute Qualifiers: Diabetes mellitus terminal manager insulin use: without terminal manager use Diabetes mellitus complication status: without complication Qualified Code(s): E11.9 - Type 2 diabetes mellitus without complications - Plan on CPAP, on high flow O2 on iv decadron accu/ss/lantus nutrition discuss with head athletic trainer
[2020-06-12] MEDS: Zinc Sulfate 220 MG CAP PO SCH (11:30)
--- NOTE | 2020-06-12 12:59 | PDOC.PALCO ---
Palliative Care Consult - Consult Details Requesting Physician: Dr Skinner Reason for Consult: goals of care, advance directives assistance, complex decision-making - Pertinent HPI 50 year old male diagnosed Covid + 19 ten days prior to presentation to emergency room. Increaser of shortness of breath, chest pain, fever. Also noted ot have cough and diarrhea. Negative for vomiting palpitations or dizziness. Evaluation showed respiratory compromise, patient admitted for further evaluation and medical management. - Pertinent PMH No significant past medical history - Social History Smoking Status: Never smoker Smoking: no tobacco exposure Alcohol Use: none Drug Use History: none - Allergies Allergies/Adverse Reactions: Allergies Allergy/AdvReac Type Severity Reaction Status Date / Time No Known Allergies Allergy Verified 05/23/20 16:31 - Subjective Off sedation and CPAP for 48 hours, awake, alert, mildly lethargic. Plan to extubate - ROS Non Response: due to endotracheal tube Constitutional: alert - Objective Vital Signs: Vital Signs - Most Recent Temp Pulse Resp BP Pulse Ox 97.8 F 66 14 101/70 99 06/12/20 11:00 06/12/20 07:03 06/12/20 08:00 06/12/20 07:03 06/12/20 10:22 Palliative Performance Scale: 20 - Physical Exam Constitutional: ill appearing HEENT: moist MMs, PERRLA Respiratory: no rhonchi, no wheezing, unlabored breathing Cardiovascular: RRR Gastrointestinal: soft, non-tender Genitourinary: ma catheter Musculoskeletal: no clubbing, pulses present, diffuse muscle atrophy Neurology: no focal deficits Skin: cap refill <2 seconds - Problem List (1) Palliative care encounter Code(s): Z51.5 - ENCOUNTER FOR PALLIATIVE CARE Status: Acute (2) DM type 2 (diabetes mellitus, type 2) Status: Acute Qualifiers: Diabetes mellitus exterminator helper termite insulin use: without mcc use Diabetes mellitus complication status: without complication Qualified Code(s): E11.9 - Type 2 diabetes mellitus without complications (3) Elevated blood sugar Code(s): R73.9 - HYPERGLYCEMIA, UNSPECIFIED Status: Acute (4) Hyponatremia Code(s): E87.1 - HYPO-OSMOLALITY AND HYPONATREMIA Status: Acute (5) Pneumonia due to COVID-19 virus Code(s): U07.1 - COVID-19; J12.89 - OTHER VIRAL PNEUMONIA Status: Acute (6) Respiratory failure with hypoxia Code(s): J96.91 - RESPIRATORY FAILURE, UNSPECIFIED WITH HYPOXIA Status: Acute - Plan/Recommendations Plan: Palliative care Team has supported family. Education provided in relation to disease progression, and slow process for healing. Successfully extubated, family at bedside. Emotional support Palliative care will sign off as goal of care addressed, family supported. Should assistance be needed to revisit Goal of care please reconsult. [50] minutes spent on this encounter with >50% of the time in counseling and coordination of care. Thank you for this very appropriate consult.
[2020-06-12] MEDS: Sodium Chloride 0.9% 1,000 ML IV SCH (17:53)
[2020-06-13] MEDS: Sodium Chloride 0.9% 1,000 ML IV SCH ×2 (04:57→18:52)
[2020-06-13 05:00] LABS: Anion Gap 12 mmol/L (10-20); BUN (Urea Nitrogen) 20 mg/dL (8.9-20.6); Calc. Creatinine Clearance 147 mL/min (70-130); Calcium 7.7 mg/dL (7.8-10.44); Carbon Dioxide 27 mmol/L (22-29); Chloride 103 mmol/L (98-107); Glucose 123 mg/dL (70-105); Potassium 4.5 mmol/L (3.5-5.1); Sodium 137 mmol/L (136-145)
[2020-06-13 05:04] LABS: Band 4 % (5-11); Hypochromia SLIGHT = 6-15 cells (100X) (0-5/hpf); MDiff Complete? YES; Monocytes 6 % (0-10); Neutrophil 90 % (42-75); Platelet Morphology Comment Appears Adequate
[2020-06-13 05:05] LABS: Hemoglobin 13.4 g/dL (14.0-18.0); Mean Corpuscular HGB CONC 33.5 g/dL (32.0-36.0); Mean Corpuscular Hemoglobin 30.6 pg (27.0-31.0); Mean Corpuscular Volume 91.2 fL (78.0-98.0); Mean Platelet Volume 8.9 fL (7.4-10.4); Platelet Count 123 thou/uL (130-400); Red Blood Cell (RBC) Count 4.37 mill/uL (4.70-6.10); White Blood Cell (WBC) Count 8.1 thou/uL (4.8-10.8)
[2020-06-13] MEDS ORDERED: Albumin 25% 25 GM/100 ML BOT IVPB ONE (09:09)
--- NOTE | 2020-06-13 10:09 | PRG ---
DATE OF SERVICE: 06/13/2020 OBJECTIVE: GENERAL: This morning, he is awake, alert, responsive. VITAL SIGNS: Sats 97 on 3 L, blood pressure is low 74/46, . CHEST: No wheezing. No crackles. CARDIAC: Normal S1, S2. ABDOMEN: No masses. LABORATORY DATA: White count 8000, H and H 13 and 39, platelet count is low. Lytes are normal. IMPRESSION: Respiratory failure, prolonged intubation, holloway positive pneumonia, severe deconditioning, hypertension. PLAN: Albumin given. Will start him on empiric antibiotics. He has a big left shift. Decrease Decadron and eventually switch him over to prednisone. Discontinue all sedation. One-half hour of critical time. Job ID: [id number]
[2020-06-13] MEDS: Ascorbic Acid 500 mg Chewable Tablet PO SCH (10:22)
[2020-06-13] MEDS: Enoxaparin Sodium 40 MG/0.4 ML SYRINGE SC SCH ×2 (10:22→21:27)
[2020-06-13] MEDS: Cefepime 1 GM in Sodium Chloride 0.9% 100 ML IVPB SCH ×2 (10:22→21:28)
[2020-06-13] MEDS: Cholecalciferol (Vitamin D3) 400 UNITS TAB PO SCH (10:22)
[2020-06-13] MEDS: Polyethylene Glycol 3350 17 GM Packet PO SCH (10:23)
[2020-06-13] MEDS: Famotidine 20 MG TAB PO SCH ×2 (10:23→21:27)
[2020-06-13] MEDS: Zinc Sulfate 220 MG CAP PO SCH (10:23)
[2020-06-13] MEDS: Insulin Glargine 20 UNITS in Pre-Filled Syringe 1 EACH SC SCH ×2 (10:25→21:34)
[2020-06-13] MEDS: Docusate 100 MG CAP PO SCH ×2 (10:26→21:29)
[2020-06-13] MEDS: HumaLOG 300 UNITS/3 ML VIAL SC PRN (10:33)
[2020-06-13] MEDS: Dexamethasone 4 mg/ml Vial SLOW IVP SCH (10:51)
--- NOTE | 2020-06-13 12:12 | PDOC.HOSPP ---
- Subjective Encounter Date: 06/13/20 Encounter Time: 12:09 Subjective: sitting in chair, eating - Objective Vital Signs & Weight: Vital Signs (12 hours) Temp Pulse Ox 06/13/20 07:44 97 06/13/20 07:00 98.2 F 06/13/20 06:53 98 06/13/20 04:00 98.3 F 06/13/20 01:03 100 06/13/20 01:00 98.5 F Weight Admit Weight 183 lb 4.8 oz Weight 152 lb 5.431 oz Most Recent Monitor Data Heart Rate from ECG 99 NIBP 86/61 NIBP BP-Mean 69 Respiration from ECG 23 SpO2 95 I&O: 06/12/20 06/13/20 06/14/20 06:59 06:59 06:59 Intake Total 2244.9 2171.9 90 Output Total 4355 2240 205 Balance -2110.1 -68.1 -115 Result Diagrams: 06/13/20 03:49 06/13/20 03:49 Additional Labs: Accuchecks 06/13/20 06/12/20 06/12/20 03:49 21:28 16:31 POC Glucose 128 H 140 H 141 H Hospitalist ROS - Medication Medications: Active Medications Generic Name Dose Route Start Last Admin Trade Name Freq PRN Reason Stop Dose Admin Acetaminophen 650 mg 05/23/20 14:17 05/31/20 10:17 Acetaminophen 325 Mg Tab PO 650 mg Q4H PRN Administration Headache/Fever/Mild Pain (1-3) Albuterol Sulfate 1 puff 05/25/20 23:43 05/30/20 22:00 Albuterol 200 Puff (6.7gm Inhaler) INH 1 puff Q8H PRN Administration Wheezing Ascorbic Acid 1,000 mg 05/26/20 09:00 06/13/20 10:22 Ascorbic Acid 500 Mg Chewable Tablet PO 1,000 mg DAILY ISABEL Administration Cholecalciferol 400 units 05/26/20 09:00 06/13/20 10:22 Cholecalciferol (Vitamin D3) 400 Units Tab PO 400 units DAILY ISABEL Administration Docusate Sodium 100 mg 06/08/20 09:00 06/13/20 10:26 Docusate 100 Mg Cap PO Not Given BID ISABEL Enoxaparin Sodium 40 mg 05/23/20 21:00 06/13/20 10:22 Enoxaparin Sodium 40 Mg/0.4 Ml Syringe SC 40 mg 0900,2100 ISABEL Administration Famotidine 20 mg 06/07/20 21:00 06/13/20 10:23 Famotidine 20 Mg Tab PO 20 mg Q12HR ISABEL Administration Guaifenesin/Codeine Phosphate 10 ml 05/28/20 11:54 05/30/20 21:52 Guaifenesin/Codeine Phosphate 200 Mg/20 Mg 10 Ml Ud Cup PO 10 ml Q6H PRN Administration Cough Insulin Glargine 20 units/ 0.2 mls @ 0 mls/hr 06/08/20 21:00 06/12/20 21:26 Miscellaneous Medication SC 0.2 mls HS ISABEL Administration Insulin Glargine 20 units/ 0.2 mls @ 0 mls/hr 06/10/20 09:00 06/13/20 10:25 Miscellaneous Medication SC 0.2 mls QAM ISABEL Administration Cefepime HCl 1 gm/ Sodium 100 mls @ 200 mls/hr 06/11/20 09:00 06/13/20 10:22 Chloride IVPB 100 mls Q12HR ISABEL Administration Sodium Chloride 1,000 mls @ 75 mls/hr 06/12/20 17:15 06/13/20 04:57 Normal Saline 0.9% IV 1,000 mls .[id number] ISABEL Administration Insulin Human Lispro 0 units 06/03/20 18:45 06/13/20 10:33 Humalog 300 Units/3 Ml Vial SC 3 unit .MILD SLIDING SCALE PRN Administration MILD SLIDING SCALE Protocol Ondansetron HCl 4 mg 05/23/20 14:17 06/12/20 14:15 Ondansetron Pf 4 Mg/2 Ml Vial IVP 4 mg Q6H PRN Administration Nausea/Vomiting Polyethylene Glycol 17 gm 06/08/20 09:00 06/13/20 10:23 Polyethylene Glycol 3350 17 Gm Packet PO Not Given DAILY ISABEL Throat Lozenges 1 aaliyah 05/28/20 11:54 05/28/20 15:19 Cepastat Lozenges 1 Aaliyah PO 1 aaliyah Q2H PRN Administration Sore Throat Zinc Sulfate 220 mg 05/26/20 09:00 06/13/20 10:23 Zinc Sulfate 220 Mg Cap PO 220 mg DAILY ISABEL Administration - Exam General Appearance: awake alert Neck: no JVD Heart: RRR, no murmur Respiratory - other findings: adequate BS Gastrointestinal: soft, non-distended, normal bowel sounds Extremities: no edema Hosp A/P (1) Pneumonia due to COVID-19 virus Code(s): U07.1 - COVID-19; J12.89 - OTHER VIRAL PNEUMONIA Status: Acute (2) Respiratory failure with hypoxia Code(s): J96.91 - RESPIRATORY FAILURE, UNSPECIFIED WITH HYPOXIA Status: Acute (3) Elevated blood sugar Code(s): R73.9 - HYPERGLYCEMIA, UNSPECIFIED Status: Acute (4) Hyponatremia Code(s): E87.1 - HYPO-OSMOLALITY AND HYPONATREMIA Status: Acute (5) DM type 2 (diabetes mellitus, type 2) Status: Acute Qualifiers: Diabetes mellitus chcf insulin use: without exterminator use Diabetes mellitus complication status: without complication Qualified Code(s): E11.9 - Type 2 diabetes mellitus without complications - Plan cont NC, O2 supplementation accu/ss/lantus deescalate steroids profoundly weak nutrition discuss with edge baster
[2020-06-13] MEDS: Doxycycline 100 MG CAP PO SCH (21:28)
[2020-06-14 04:28] LABS: #Basophils 0.1 thou/uL (0.0-0.2); #Eosinphils 0.1 thou/uL (0.0-0.7); #Lymphocytes 0.4 thou/uL (1.20-3.40); #Monocytes 0.3 thou/uL (0.11-0.59); #Neutrophils 7.4 thou/uL (1.40-6.50); %Basophils 0.6 % (0.0-1.0); %Eosinophils 1.2 % (0.0-10.0); %Lymphocytes 4.6 % (21.0-51.0); %Monocytes 3.6 % (0.0-10.0); Hemoglobin 13.8 g/dL (14.0-18.0); Mean Corpuscular HGB CONC 33.5 g/dL (32.0-36.0); Mean Corpuscular Hemoglobin 30.5 pg (27.0-31.0); Mean Corpuscular Volume 91.1 fL (78.0-98.0); Mean Platelet Volume 8.5 fL (7.4-10.4); Platelet Count 124 thou/uL (130-400); RBC Distribution Width 13.1 % (11.5-14.5); White Blood Cell (WBC) Count 8.2 thou/uL (4.8-10.8)
[2020-06-14 04:37] LABS: Anion Gap 13 mmol/L (10-20); BUN (Urea Nitrogen) 18 mg/dL (8.9-20.6); Calc. Creatinine Clearance 135 mL/min (70-130); Calcium 7.7 mg/dL (7.8-10.44); Carbon Dioxide 28 mmol/L (22-29); Chloride 102 mmol/L (98-107); Potassium 3.7 mmol/L (3.5-5.1); Sodium 139 mmol/L (136-145)
[2020-06-14 04:39] LABS: Glucose 52 mg/dL (70-105)
[2020-06-14] MEDS: Cholecalciferol (Vitamin D3) 400 UNITS TAB PO SCH (07:56)
[2020-06-14] MEDS: Famotidine 20 MG TAB PO SCH ×2 (07:56→20:23)
[2020-06-14] MEDS: Zinc Sulfate 220 MG CAP PO SCH (07:57)
[2020-06-14] MEDS: Dexamethasone 4 mg/ml Vial SLOW IVP SCH (07:57)
[2020-06-14] MEDS: Doxycycline 100 MG CAP PO SCH ×2 (07:57→20:22)
[2020-06-14] MEDS: Ascorbic Acid 500 mg Chewable Tablet PO SCH (07:57)
[2020-06-14] MEDS: Enoxaparin Sodium 40 MG/0.4 ML SYRINGE SC SCH ×2 (07:57→20:23)
[2020-06-14] MEDS: Cefepime 1 GM in Sodium Chloride 0.9% 100 ML IVPB SCH ×2 (07:58→20:28)
[2020-06-14] MEDS: Docusate 100 MG CAP PO SCH ×2 (07:58→20:22)
[2020-06-14] MEDS: Polyethylene Glycol 3350 17 GM Packet PO SCH (07:59)
--- NOTE | 2020-06-14 09:25 | PRG ---
DATE OF SERVICE: 06/14/2020 SUBJECTIVE: A 50-year-old gentleman is extubated. He is still weak. OBJECTIVE: VITAL SIGNS: Temperature 99, his sats on 3 L are about , blood pressure 103/59. His I's and Os even. CHEST: No wheezing. No crackles. CARDIAC: Normal S1. ABDOMEN: No masses. LABORATORY DATA: Unremarkable. Glucose was low. ASSESSMENT: Cook positive pneumonia, respiratory failure, severe deconditioning, diabetes. Blood sugar is ripping in the 50s. We are going to discontinue the Lantus. Continue sliding scale. Continue steroids. Continue antibiotics. He may require another day in the ICU. He is still unstable to be transferred out. One-half hour of critical care time. Job ID: [id number]
[2020-06-14] MEDS: Insulin Glargine 20 UNITS in Pre-Filled Syringe 1 EACH SC SCH (09:50)
[2020-06-14] MEDS: Sodium Chloride 0.9% 1,000 ML IV SCH ×2 (11:00→20:27)
--- NOTE | 2020-06-14 11:12 | PDOC.HOSPP ---
- Subjective Encounter Date: 06/14/20 Encounter Time: 11:10 Subjective: alert, profounly weak - Objective Vital Signs & Weight: Vital Signs (12 hours) Temp Pulse Ox 06/14/20 07:25 98 06/14/20 07:00 99.7 F H Weight Admit Weight 183 lb 4.8 oz Weight 157 lb 6.561 oz Most Recent Monitor Data Heart Rate from ECG 95 NIBP 98/60 NIBP BP-Mean 72 Respiration from ECG 29 SpO2 96 I&O: 06/13/20 06/14/20 06/15/20 06:59 06:59 06:59 Intake Total 2171.9 2566 540 Output Total 2240 2045 650 Balance -68.1 521 -110 Result Diagrams: 06/14/20 03:59 06/14/20 03:59 Additional Labs: Accuchecks 06/14/20 06/14/20 06/13/20 09:47 07:54 21:31 POC Glucose 147 H 67 L 85 Hospitalist ROS - Medication Medications: Active Medications Generic Name Dose Route Start Last Admin Trade Name Freq PRN Reason Stop Dose Admin Acetaminophen 650 mg 05/23/20 14:17 05/31/20 10:17 Acetaminophen 325 Mg Tab PO 650 mg Q4H PRN Administration Headache/Fever/Mild Pain (1-3) Albuterol Sulfate 1 puff 05/25/20 23:43 05/30/20 22:00 Albuterol 200 Puff (6.7gm Inhaler) INH 1 puff Q8H PRN Administration Wheezing Ascorbic Acid 1,000 mg 05/26/20 09:00 06/14/20 07:57 Ascorbic Acid 500 Mg Chewable Tablet PO 1,000 mg DAILY ISABEL Administration Cholecalciferol 400 units 05/26/20 09:00 06/14/20 07:56 Cholecalciferol (Vitamin D3) 400 Units Tab PO 400 units DAILY ISABEL Administration Dexamethasone 6 mg 06/14/20 09:00 06/14/20 07:57 Dexamethasone 4 Mg/Ml Vial SLOW IVP 6 mg DAILY ISABEL Administration Dextrose/Water 25 gm 06/03/20 18:45 06/14/20 04:10 Dextrose 50% Abboject 50 Ml Syringe IVP 25 gm PRN PRN Administration HYPOGLYCEMIA PROTOCOL Docusate Sodium 100 mg 06/08/20 09:00 06/14/20 07:58 Docusate 100 Mg Cap PO Not Given BID ISABEL Doxycycline Hyclate 100 mg 06/13/20 21:00 06/14/20 07:57 Doxycycline 100 Mg Cap PO 06/23/20 21:01 100 mg BID ISABEL Administration Enoxaparin Sodium 40 mg 05/23/20 21:00 06/14/20 07:57 Enoxaparin Sodium 40 Mg/0.4 Ml Syringe SC 40 mg 0900,2100 ISABEL Administration Famotidine 20 mg 06/07/20 21:00 06/14/20 07:56 Famotidine 20 Mg Tab PO 20 mg Q12HR ISABEL Administration Guaifenesin/Codeine Phosphate 10 ml 05/28/20 11:54 05/30/20 21:52 Guaifenesin/Codeine Phosphate 200 Mg/20 Mg 10 Ml Ud Cup PO 10 ml Q6H PRN Administration Cough Insulin Glargine 20 units/ 0.2 mls @ 0 mls/hr 06/08/20 21:00 06/13/20 21:34 Miscellaneous Medication SC 0.2 mls HS ISABEL Administration Cefepime HCl 1 gm/ Sodium 100 mls @ 200 mls/hr 06/11/20 09:00 06/14/20 07:58 Chloride IVPB 100 mls Q12HR ISABEL Administration Sodium Chloride 1,000 mls @ 75 mls/hr 06/12/20 17:15 06/14/20 11:00 Normal Saline 0.9% IV Not Given .[id number] [facility] Insulin Human Lispro 0 units 06/03/20 18:45 06/13/20 10:33 Humalog 300 Units/3 Ml Vial SC 3 unit .MILD SLIDING SCALE PRN Administration MILD SLIDING SCALE Protocol Ondansetron HCl 4 mg 05/23/20 14:17 06/12/20 14:15 Ondansetron Pf 4 Mg/2 Ml Vial IVP 4 mg Q6H PRN Administration Nausea/Vomiting Polyethylene Glycol 17 gm 06/08/20 09:00 06/14/20 07:59 Polyethylene Glycol 3350 17 Gm Packet PO Not Given DAILY ISABEL Throat Lozenges 1 aaliyah 05/28/20 11:54 05/28/20 15:19 Cepastat Lozenges 1 Aaliyah PO 1 aaliyah Q2H PRN Administration Sore Throat Zinc Sulfate 220 mg 05/26/20 09:00 06/14/20 07:57 Zinc Sulfate 220 Mg Cap PO 220 mg DAILY ISABEL Administration - Exam General Appearance: awake alert Neck: no JVD Heart: RRR, no murmur Respiratory - other findings: scattered rhonchi, fine rales Gastrointestinal: soft, normal bowel sounds Extremities: 1+ LE edema Hosp A/P (1) Pneumonia due to COVID-19 virus Code(s): U07.1 - COVID-19; J12.89 - OTHER VIRAL PNEUMONIA Status: Acute (2) Respiratory failure with hypoxia Code(s): J96.91 - RESPIRATORY FAILURE, UNSPECIFIED WITH HYPOXIA Status: Acute (3) Elevated blood sugar Code(s): R73.9 - HYPERGLYCEMIA, UNSPECIFIED Status: Acute (4) Hyponatremia Code(s): E87.1 - HYPO-OSMOLALITY AND HYPONATREMIA Status: Acute (5) DM type 2 (diabetes mellitus, type 2) Status: Acute Qualifiers: Diabetes mellitus correction insulin use: without correction use Diabetes mellitus complication status: without complication Qualified Code(s): E11.9 - Type 2 diabetes mellitus without complications - Plan cont NC, O2 supplementation Glucose dropped to 50s, lantus DCed, cont accu/ss/ deescalate steroids profoundly weak nutrition discuss with stoneworking belt sander
[2020-06-15] MEDS: Acetaminophen 325 MG TAB PO PRN (05:12)
[2020-06-15 05:21] LABS: #Lymphocytes 0.3 thou/uL (1.20-3.40); #Monocytes 0.2 thou/uL (0.11-0.59); #Neutrophils 7.3 thou/uL (1.40-6.50); %Eosinophils 0.3 % (0.0-10.0); %Lymphocytes 3.2 % (21.0-51.0); %Monocytes 2.6 % (0.0-10.0); Hemoglobin 14.1 g/dL (14.0-18.0); Mean Corpuscular HGB CONC 34.7 g/dL (32.0-36.0); Mean Corpuscular Hemoglobin 30.8 pg (27.0-31.0); Platelet Count 110 thou/uL (130-400); RBC Distribution Width 13.2 % (11.5-14.5); Red Blood Cell (RBC) Count 4.57 mill/uL (4.70-6.10); White Blood Cell (WBC) Count 7.8 thou/uL (4.8-10.8)
[2020-06-15 05:38] LABS: Anion Gap 12 mmol/L (10-20); BUN (Urea Nitrogen) 16 mg/dL (8.9-20.6); Calc. Creatinine Clearance 154 mL/min (70-130); Calcium 7.6 mg/dL (7.8-10.44); Carbon Dioxide 23 mmol/L (22-29); Chloride 103 mmol/L (98-107); Glucose 62 mg/dL (70-105); Potassium 3.7 mmol/L (3.5-5.1); Sodium 134 mmol/L (136-145)
[2020-06-15] MEDS: Vancomycin HCl 25 MG/ML Oral PO SCH ×2 (06:15→17:59)
--- NOTE | 2020-06-15 07:43 | PRG ---
DATE OF SERVICE: 06/15/2020 SUBJECTIVE: The patient is doing seemingly well. No acute events overnight. OBJECTIVE: VITAL SIGNS: Temperature 99.3, T-max 100.2, pulse 88, blood pressure 85/54, O2 saturation 100%. Intake 2914, output 2380. HEENT: Unremarkable. NECK: No JVD. LUNGS: Clear anteriorly. CARDIAC: S1, S2. Regular. ABDOMEN: Soft. EXTREMITIES: No edema. LABORATORY DATA: Sodium 134, potassium 3.7, chloride 103, CO2 of 23, BUN 16, creatinine 0.5, glucose 62. White count 7.8, hematocrit 40.7, and platelet count 110. ASSESSMENT: 1. COVID-19 pneumonia, now status post respiratory failure. 2. Severe deconditioning. 3. Diabetes mellitus. PLAN: 1. Transferred to intermediate care if bed available. 2. Blood pressure is still borderline low, therefore, continue with IV fluids. 3. Glucose is running low, therefore, add D5 to IV fluids and discontinue the Lantus insulin. 4. Continue steroids but consider taper over the upcoming week. 5. Initiate PT, OT, etc. Job ID: [id number]
[2020-06-15] MEDS: Insulin Glargine 20 UNITS in Pre-Filled Syringe 1 EACH SC SCH (08:33)
[2020-06-15] MEDS: Ascorbic Acid 500 mg Chewable Tablet PO SCH (08:44)
[2020-06-15] MEDS: Zinc Sulfate 220 MG CAP PO SCH (08:44)
[2020-06-15] MEDS: Dextrose 5 % And 0.9 % NaCl 1,000 ML IV SCH ×2 (08:44→22:03)
[2020-06-15] MEDS: Famotidine 20 MG TAB PO SCH ×2 (08:45→20:57)
[2020-06-15] MEDS: Dexamethasone 4 mg/ml Vial SLOW IVP SCH (08:45)
[2020-06-15] MEDS: Cefepime 1 GM in Sodium Chloride 0.9% 100 ML IVPB SCH ×2 (08:45→21:01)
[2020-06-15] MEDS: Enoxaparin Sodium 40 MG/0.4 ML SYRINGE SC SCH ×2 (08:45→20:57)
[2020-06-15] MEDS: Doxycycline 100 MG CAP PO SCH ×2 (08:45→20:57)
[2020-06-15] MEDS: Cholecalciferol (Vitamin D3) 400 UNITS TAB PO SCH (08:45)
[2020-06-15] MEDS: Polyethylene Glycol 3350 17 GM Packet PO SCH (08:46)
[2020-06-15] MEDS: Docusate 100 MG CAP PO SCH ×2 (08:46→20:57)
--- NOTE | 2020-06-15 13:08 | PDOC.HOSPP ---
- Subjective Encounter Date: 06/15/20 - Objective Vital Signs & Weight: Vital Signs (12 hours) Temp Pulse Resp BP BP Pulse Ox 06/15/20 12:00 97.7 F 86 20 92/66 93 L 06/15/20 09:35 98.3 F 84 18 82/53 L 96 06/15/20 08:00 98.4 F 100 06/15/20 06:00 99.3 F 06/15/20 05:12 100.2 F H 93 20 115/80 06/15/20 05:00 100.2 F H Weight Admit Weight 183 lb 4.8 oz Weight 146 lb 6.191 oz Most Recent Monitor Data Heart Rate from ECG 82 NIBP 97/54 NIBP BP-Mean 68 Respiration from ECG 20 SpO2 95 I&O: 06/14/20 06/15/20 06/16/20 06:59 06:59 06:59 Intake Total 2566 2914 450 Output Total 2045 2380 140 Balance 521 534 310 Result Diagrams: 06/15/20 04:51 06/15/20 04:51 Additional Labs: Accuchecks 06/15/20 06/15/20 06/14/20 08:57 05:02 22:04 POC Glucose 91 69 L 89 06/14/20 16:14 POC Glucose 158 H Hospitalist ROS - Medication Medications: Active Medications Generic Name Dose Route Start Last Admin Trade Name Freq PRN Reason Stop Dose Admin Acetaminophen 650 mg 05/23/20 14:17 06/15/20 05:12 Acetaminophen 325 Mg Tab PO 650 mg Q4H PRN Administration Headache/Fever/Mild Pain (1-3) Albuterol Sulfate 1 puff 05/25/20 23:43 05/30/20 22:00 Albuterol 200 Puff (6.7gm Inhaler) INH 1 puff Q8H PRN Administration Wheezing Ascorbic Acid 1,000 mg 05/26/20 09:00 06/15/20 08:44 Ascorbic Acid 500 Mg Chewable Tablet PO 1,000 mg DAILY ISABEL Administration Cholecalciferol 400 units 05/26/20 09:00 06/15/20 08:45 Cholecalciferol (Vitamin D3) 400 Units Tab PO 400 units DAILY ISABEL Administration Dexamethasone 6 mg 06/14/20 09:00 06/15/20 08:45 Dexamethasone 4 Mg/Ml Vial SLOW IVP 6 mg DAILY ISABEL Administration Dextrose/Water 25 gm 06/03/20 18:45 06/14/20 04:10 Dextrose 50% Abboject 50 Ml Syringe IVP 25 gm PRN PRN Administration HYPOGLYCEMIA PROTOCOL Docusate Sodium 100 mg 06/08/20 09:00 06/15/20 08:46 Docusate 100 Mg Cap PO Not Given BID ISABEL Doxycycline Hyclate 100 mg 06/13/20 21:00 06/15/20 08:45 Doxycycline 100 Mg Cap PO 06/23/20 21:01 100 mg BID ISABEL Administration Enoxaparin Sodium 40 mg 05/23/20 21:00 06/15/20 08:45 Enoxaparin Sodium 40 Mg/0.4 Ml Syringe SC 40 mg 09,2099 ISABEL Administration Famotidine 20 mg 06/07/20 21:00 06/15/20 08:45 Famotidine 20 Mg Tab PO 20 mg Q12HR ISABEL Administration Guaifenesin/Codeine Phosphate 10 ml 05/28/20 11:54 05/30/20 21:52 Guaifenesin/Codeine Phosphate 200 Mg/20 Mg 10 Ml Ud Cup PO 10 ml Q6H PRN Administration Cough Cefepime HCl 1 gm/ Sodium 100 mls @ 200 mls/hr 06/11/20 09:00 06/15/20 08:45 Chloride IVPB 100 mls Q12HR ISABEL Administration Dextrose/Sodium Chloride 1,000 mls @ 75 mls/hr 06/15/20 07:30 06/15/20 08:44 D5 0.9% Ns IV 1,000 mls .[id number] ISABEL Administration Insulin Human Lispro 0 units 06/03/20 18:45 06/13/20 10:33 Humalog 300 Units/3 Ml Vial SC 3 unit .MILD SLIDING SCALE PRN Administration MILD SLIDING SCALE Protocol Ondansetron HCl 4 mg 05/23/20 14:17 06/12/20 14:15 Ondansetron Pf 4 Mg/2 Ml Vial IVP 4 mg Q6H PRN Administration Nausea/Vomiting Polyethylene Glycol 17 gm 06/08/20 09:00 06/15/20 08:46 Polyethylene Glycol 3350 17 Gm Packet PO Not Given DAILY ISABEL Throat Lozenges 1 aaliyah 05/28/20 11:54 05/28/20 15:19 Cepastat Lozenges 1 Aaliyah PO 1 aaliyah Q2H PRN Administration Sore Throat Zinc Sulfate 220 mg 05/26/20 09:00 06/15/20 08:44 Zinc Sulfate 220 Mg Cap PO 220 mg DAILY ISABEL Administration - Exam General Appearance: awake alert ENT: normocephalic atraumatic Neck: supple, no JVD Heart: RRR Respiratory: normal chest expansion, no tachypnea Extremities: no cyanosis, no edema Hosp A/P (1) Pneumonia due to COVID-19 virus Code(s): U07.1 - COVID-19; J12.89 - OTHER VIRAL PNEUMONIA Status: Acute (2) Diarrhea Code(s): R19.7 - DIARRHEA, UNSPECIFIED Status: Acute (3) DM type 2 (diabetes mellitus, type 2) Status: Acute Qualifiers: Diabetes mellitus correction insulin use: without correction use Diabetes mellitus complication status: without complication Qualified Code(s): E11.9 - Type 2 diabetes mellitus without complications (4) Respiratory failure with hypoxia Code(s): J96.91 - RESPIRATORY FAILURE, UNSPECIFIED WITH HYPOXIA Status: Acute - Plan This is a 50-year-old male with no significant past medical history who was admitted for acute hypoxic respiratory failure due to COVID-19 pneumonia. The patient required ventilatory support and admission to the ICU. He received Decadron, convalescent plasma, anticoagulation, antibiotics, and remdesivir. He was successfully extubated and transferred to the medical floor. Today the patient is saturating well on nasal cannula. He had an episode of watery diarrhea today. We will check C. difficile toxin. Add probiotics.
[2020-06-15] MEDS: HumaLOG 300 UNITS/3 ML VIAL SC PRN (17:36)
[2020-06-16] MEDS: Vancomycin HCl 25 MG/ML Oral PO SCH ×5 (00:30→23:31)
[2020-06-16] MEDS: Acetaminophen 325 MG TAB PO PRN ×2 (04:05→20:52)
[2020-06-16 05:20] LABS: #Lymphocytes 0.4 thou/uL (1.20-3.40); #Monocytes 0.3 thou/uL (0.11-0.59); #Neutrophils 6.6 thou/uL (1.40-6.50); %Eosinophils 0.5 % (0.0-10.0); %Lymphocytes 4.8 % (21.0-51.0); %Monocytes 3.4 % (0.0-10.0); %Neutrophils 91.3 % (42.0-75.0); Hemoglobin 13.2 g/dL (14.0-18.0); Mean Corpuscular HGB CONC 34.8 g/dL (32.0-36.0); Mean Corpuscular Hemoglobin 30.9 pg (27.0-31.0); Mean Corpuscular Volume 88.7 fL (78.0-98.0); Mean Platelet Volume 8.6 fL (7.4-10.4); Platelet Count 103 thou/uL (130-400); Red Blood Cell (RBC) Count 4.26 mill/uL (4.70-6.10); White Blood Cell (WBC) Count 7.2 thou/uL (4.8-10.8)
[2020-06-16 05:35] LABS: Anion Gap 12 mmol/L (10-20); BUN (Urea Nitrogen) 11 mg/dL (8.9-20.6); Calc. Creatinine Clearance 138 mL/min (70-130); Calcium 7.2 mg/dL (7.8-10.44); Carbon Dioxide 21 mmol/L (22-29); Chloride 103 mmol/L (98-107); Glucose 106 mg/dL (70-105); Potassium 3.8 mmol/L (3.5-5.1); Sodium 132 mmol/L (136-145)
[2020-06-16] MEDS: Cholecalciferol (Vitamin D3) 400 UNITS TAB PO SCH (07:58)
[2020-06-16] MEDS: Ascorbic Acid 500 mg Chewable Tablet PO SCH (07:58)
[2020-06-16] MEDS: Dexamethasone 4 mg/ml Vial SLOW IVP SCH (07:58)
[2020-06-16] MEDS: Famotidine 20 MG TAB PO SCH ×2 (07:59→20:52)
[2020-06-16] MEDS: Enoxaparin Sodium 40 MG/0.4 ML SYRINGE SC SCH ×2 (07:59→21:27)
[2020-06-16] MEDS: Zinc Sulfate 220 MG CAP PO SCH (07:59)
[2020-06-16] MEDS: Doxycycline 100 MG CAP PO SCH ×2 (07:59→21:26)
[2020-06-16] MEDS: Polyethylene Glycol 3350 17 GM Packet PO SCH (07:59)
[2020-06-16] MEDS: Docusate 100 MG CAP PO SCH ×3 (07:59→21:26)
[2020-06-16] MEDS: Cefepime 1 GM in Sodium Chloride 0.9% 100 ML IVPB SCH (08:08)
[2020-06-16] MEDS: Dextrose 5 % And 0.9 % NaCl 1,000 ML IV SCH (08:50)
--- NOTE | 2020-06-16 10:14 | RAD ---
XR Chest 1 View History: Hypoxia Comparison: Radiograph June 12, 2020 Findings: Similar appearance of the extensive peripheral and perihilar airspace opacities. The patien t has been extubated and the enteric tube has been removed. Small right layering pleural effusion. No pneumothorax. Impression: Development of a small right pleural effusion. Interval extubation and removal of the ent shelli tube.
--- NOTE | 2020-06-16 12:17 | PDOC.HOSPP ---
- Subjective Encounter Date: 06/16/20 Subjective: The patient's diarrhea is improving. - Objective Vital Signs & Weight: Vital Signs (12 hours) Temp Pulse Resp BP BP BP Pulse Ox 06/16/20 11:15 97.9 F 79 20 96/60 94 L 06/16/20 08:00 98.1 F 81 22 H 97/57 L 96 06/16/20 06:00 99.3 F 83 14 99/55 L 94 L 06/16/20 04:05 101.0 F H 82 16 92/50 L 06/16/20 04:00 101.0 F H 80 12 92/50 L 92 L 06/16/20 02:00 82 12 96/54 L 92 L Weight Admit Weight 183 lb 4.8 oz Weight 156 lb Most Recent Monitor Data Heart Rate from ECG 82 NIBP 97/54 NIBP BP-Mean 68 Respiration from ECG 20 SpO2 95 I&O: 06/15/20 06/16/20 06/17/20 06:59 06:59 06:59 Intake Total 2914 2870 250 Output Total 2380 1140 300 Balance 534 1730 -50 Result Diagrams: 06/16/20 04:48 06/16/20 04:48 Additional Labs: Accuchecks 06/16/20 06/16/20 06/15/20 11:10 04:11 22:08 POC Glucose 139 H 108 H 111 H 06/15/20 15:54 POC Glucose 230 H Hospitalist ROS - Medication Medications: Active Medications Generic Name Dose Route Start Last Admin Trade Name Freq PRN Reason Stop Dose Admin Acetaminophen 650 mg 05/23/20 14:17 06/16/20 04:05 Acetaminophen 325 Mg Tab PO 650 mg Q4H PRN Administration Headache/Fever/Mild Pain (1-3) Albuterol Sulfate 1 puff 05/25/20 23:43 05/30/20 22:00 Albuterol 200 Puff (6.7gm Inhaler) INH 1 puff Q8H PRN Administration Wheezing Ascorbic Acid 1,000 mg 05/26/20 09:00 06/16/20 07:58 Ascorbic Acid 500 Mg Chewable Tablet PO 1,000 mg DAILY ISABEL Administration Cholecalciferol 400 units 05/26/20 09:00 06/16/20 07:58 Cholecalciferol (Vitamin D3) 400 Units Tab PO 400 units DAILY ISABEL Administration Dexamethasone 6 mg 06/14/20 09:00 06/16/20 07:58 Dexamethasone 4 Mg/Ml Vial SLOW IVP 6 mg DAILY ISABEL Administration Dextrose/Water 25 gm 06/03/20 18:45 06/14/20 04:10 Dextrose 50% Abboject 50 Ml Syringe IVP 25 gm PRN PRN Administration HYPOGLYCEMIA PROTOCOL Docusate Sodium 100 mg 06/08/20 09:00 06/16/20 08:48 Docusate 100 Mg Cap PO Not Given BID ISABEL Doxycycline Hyclate 100 mg 06/13/20 21:00 06/16/20 07:59 Doxycycline 100 Mg Cap PO 06/23/20 21:01 100 mg BID ISABEL Administration Enoxaparin Sodium 40 mg 05/23/20 21:00 06/16/20 07:59 Enoxaparin Sodium 40 Mg/0.4 Ml Syringe SC 40 mg 0900,2100 ISABEL Administration Famotidine 20 mg 06/07/20 21:00 06/16/20 07:59 Famotidine 20 Mg Tab PO 20 mg Q12HR ISABEL Administration Guaifenesin/Codeine Phosphate 10 ml 05/28/20 11:54 05/30/20 21:52 Guaifenesin/Codeine Phosphate 200 Mg/20 Mg 10 Ml Ud Cup PO 10 ml Q6H PRN Administration Cough Insulin Human Lispro 0 units 06/03/20 18:45 06/15/20 17:36 Humalog 300 Units/3 Ml Vial SC 3 unit .MILD SLIDING SCALE PRN Administration MILD SLIDING SCALE Protocol Ondansetron HCl 4 mg 05/23/20 14:17 06/12/20 14:15 Ondansetron Pf 4 Mg/2 Ml Vial IVP 4 mg Q6H PRN Administration Nausea/Vomiting Polyethylene Glycol 17 gm 06/08/20 09:00 06/16/20 07:59 Polyethylene Glycol 3350 17 Gm Packet PO Not Given DAILY ISABEL Throat Lozenges 1 aaliyah 05/28/20 11:54 05/28/20 15:19 Cepastat Lozenges 1 Aaliyah PO 1 aaliyah Q2H PRN Administration Sore Throat Vancomycin HCl 125 mg 06/15/20 18:00 06/16/20 00:30 Vancomycin Hcl 25 Mg/Ml Oral PO 125 mg Q6HR ISABEL Administration Zinc Sulfate 220 mg 05/26/20 09:00 06/16/20 07:59 Zinc Sulfate 220 Mg Cap PO 220 mg DAILY ISABEL Administration - Exam General Appearance: awake alert ENT: normocephalic atraumatic Neck: supple Heart: RRR Respiratory: normal chest expansion, no tachypnea Extremities: no cyanosis, no clubbing Hosp A/P (1) Pneumonia due to COVID-19 virus Code(s): U07.1 - COVID-19; J12.89 - OTHER VIRAL PNEUMONIA Status: Acute (2) Diarrhea Code(s): R19.7 - DIARRHEA, UNSPECIFIED Status: Acute (3) DM type 2 (diabetes mellitus, type 2) Status: Acute Qualifiers: Diabetes mellitus retirement insulin use: without retirement use Diabetes mellitus complication status: without complication Qualified Code(s): E11.9 - Type 2 diabetes mellitus without complications (4) Respiratory failure with hypoxia Code(s): J96.91 - RESPIRATORY FAILURE, UNSPECIFIED WITH HYPOXIA Status: Acute (5) C. difficile colitis Code(s): A04.72 - ENTEROCOLITIS D/T CLOSTRIDIUM DIFFICILE, NOT SPCF RECUR Status: Acute - Plan This is a 50-year-old male with no significant past medical history who was admitted for acute hypoxic respiratory failure due to COVID-19 pneumonia. The patient required ventilatory support and admission to the ICU. He received Dec adron, convalescent plasma, anticoagulation, antibiotics, and remdesivir. He was successfully extubated and transferred to the medical floor. 06/15: Today the patient is saturating well on nasal cannula. He had an episode of watery diarrhea today. We will check C. difficile toxin. Add probiotics. 06/16: The patient is positive for C. difficile. Oral vancomycin was initiated. Repeat x-ray showed small effusion without any significant worsening in his lung aeration. No fever or WBC elevation. His procalcitonin level is low. At this time, I do not think he will need more IV antibiotics and those will be discontinued. Discontinue dextrose due to hyponatremia. PT and OT.
--- NOTE | 2020-06-16 15:08 | PRG ---
DATE OF SERVICE: 06/16/2020 SUBJECTIVE: He is actually doing fairly well. His is in the room. He has no acute complaints. OBJECTIVE: VITAL SIGNS: Temperature 97.9, pulse 79, respirations 20, O2 sat 94%. He had a fever as high as 101.0 last night. HEENT: Unremarkable. NECK: No adenopathy or JVD. CHEST: Fairly clear. CARDIAC: S1, S2. Regular. ABDOMEN: Soft. EXTREMITIES: No edema. ASSESSMENT: 1. COVID-19 pneumonia. 2. Severe deconditioning. PLAN: Basically at this time, continue present care. Increase activity as tolerated. Wean off oxygen as tolerated. Hopefully home soon. Job ID: [id number]
[2020-06-16] MEDS: HumaLOG 300 UNITS/3 ML VIAL SC PRN (16:19)
[2020-06-17 05:08] LABS: #Lymphocytes 0.6 thou/uL (1.20-3.40); #Monocytes 0.4 thou/uL (0.11-0.59); #Neutrophils 7.1 thou/uL (1.40-6.50); %Basophils 0.4 % (0.0-1.0); %Eosinophils 0.6 % (0.0-10.0); %Lymphocytes 6.8 % (21.0-51.0); %Monocytes 4.4 % (0.0-10.0); %Neutrophils 87.8 % (42.0-75.0); Hemoglobin 13.3 g/dL (14.0-18.0); Mean Corpuscular HGB CONC 33.7 g/dL (32.0-36.0); Mean Corpuscular Hemoglobin 29.8 pg (27.0-31.0); Mean Corpuscular Volume 88.5 fL (78.0-98.0); Mean Platelet Volume 8.5 fL (7.4-10.4); Platelet Count 102 thou/uL (130-400); RBC Distribution Width 13.1 % (11.5-14.5); Red Blood Cell (RBC) Count 4.47 mill/uL (4.70-6.10)
[2020-06-17] MEDS: Acetaminophen 325 MG TAB PO PRN (05:23)
[2020-06-17 05:25] LABS: Anion Gap 13 mmol/L (10-20); BUN (Urea Nitrogen) 12 mg/dL (8.9-20.6); Calc. Creatinine Clearance 164 mL/min (70-130); Calcium 7.4 mg/dL (7.8-10.44); Carbon Dioxide 23 mmol/L (22-29); Chloride 100 mmol/L (98-107); Glucose 100 mg/dL (70-105); Potassium 4.1 mmol/L (3.5-5.1); Sodium 132 mmol/L (136-145)
[2020-06-17] MEDS: Vancomycin HCl 25 MG/ML Oral PO SCH ×3 (07:19→16:53)
[2020-06-17] MEDS: Dexamethasone 4 mg/ml Vial SLOW IVP SCH (09:04)
[2020-06-17] MEDS: Cholecalciferol (Vitamin D3) 400 UNITS TAB PO SCH (09:04)
[2020-06-17] MEDS: Ascorbic Acid 500 mg Chewable Tablet PO SCH (09:04)
[2020-06-17] MEDS: Doxycycline 100 MG CAP PO SCH ×2 (09:05→21:43)
[2020-06-17] MEDS: Docusate 100 MG CAP PO SCH (09:05)
[2020-06-17] MEDS: Famotidine 20 MG TAB PO SCH ×2 (09:05→21:43)
[2020-06-17] MEDS: Enoxaparin Sodium 40 MG/0.4 ML SYRINGE SC SCH ×2 (09:05→21:43)
[2020-06-17] MEDS: Zinc Sulfate 220 MG CAP PO SCH (09:06)
[2020-06-17] MEDS: Polyethylene Glycol 3350 17 GM Packet PO SCH (09:06)
--- NOTE | 2020-06-17 12:04 | PDOC.HOSPP ---
- Subjective Encounter Date: 06/17/20 Subjective: The patient denies any diarrhea today. He saturating well on 4 L. - Objective Vital Signs & Weight: Vital Signs (12 hours) Temp Pulse Resp BP BP BP Pulse Ox 06/17/20 11:44 97.7 F 85 22 H 105/63 96 06/17/20 10:00 97.8 F 81 22 H 97/57 L 96 06/17/20 08:00 96 06/17/20 07:29 97.9 F 75 20 91/55 L 96 06/17/20 05:55 74 14 98/61 95 06/17/20 05:23 99.1 F 06/17/20 04:00 99.9 F H 98 16 95 06/17/20 02:00 76 98/61 96 06/17/20 00:07 97.7 F 88 14 101/61 93 L Weight Admit Weight 183 lb 4.8 oz Weight 156 lb Most Recent Monitor Data Heart Rate from ECG 82 NIBP 97/54 NIBP BP-Mean 68 Respiration from ECG 20 SpO2 95 I&O: 06/16/20 06/17/20 06/18/20 06:59 06:59 06:59 Intake Total 2870 1340 840 Output Total 1140 1000 300 Balance 1730 340 540 Result Diagrams: 06/17/20 04:35 06/17/20 04:35 Additional Labs: Accuchecks 06/17/20 06/17/20 06/16/20 11:48 05:10 22:07 POC Glucose 234 H 104 H 150 H 06/16/20 06/14/20 06/14/20 15:42 04:14 03:59 POC Glucose 222 H 217 H 47 L* Hospitalist ROS - Medication Medications: Active Medications Generic Name Dose Route Start Last Admin Trade Name Freq PRN Reason Stop Dose Admin Acetaminophen 650 mg 05/23/20 14:17 06/17/20 05:23 Acetaminophen 325 Mg Tab PO 650 mg Q4H PRN Administration Headache/Fever/Mild Pain (1-3) Albuterol Sulfate 1 puff 05/25/20 23:43 05/30/20 22:00 Albuterol 200 Puff (6.7gm Inhaler) INH 1 puff Q8H PRN Administration Wheezing Ascorbic Acid 1,000 mg 05/26/20 09:00 06/17/20 09:04 Ascorbic Acid 500 Mg Chewable Tablet PO 1,000 mg DAILY ISABEL Administration Cholecalciferol 400 units 05/26/20 09:00 06/17/20 09:04 Cholecalciferol (Vitamin D3) 400 Units Tab PO 400 units DAILY ISABEL Administration Dextrose/Water 25 gm 06/03/20 18:45 06/14/20 04:10 Dextrose 50% Abboject 50 Ml Syringe IVP 25 gm PRN PRN Administration HYPOGLYCEMIA PROTOCOL Docusate Sodium 100 mg 06/08/20 09:00 06/17/20 09:05 Docusate 100 Mg Cap PO Not Given BID ISABEL Doxycycline Hyclate 100 mg 06/13/20 21:00 06/17/20 09:05 Doxycycline 100 Mg Cap PO 06/23/20 21:01 100 mg BID ISABEL Administration Enoxaparin Sodium 40 mg 05/23/20 21:00 06/17/20 09:05 Enoxaparin Sodium 40 Mg/0.4 Ml Syringe SC 40 mg 0900,2100 ISABEL Administration Famotidine 20 mg 06/07/20 21:00 06/17/20 09:05 Famotidine 20 Mg Tab PO 20 mg Q12HR ISABEL Administration Guaifenesin/Codeine Phosphate 10 ml 05/28/20 11:54 05/30/20 21:52 Guaifenesin/Codeine Phosphate 200 Mg/20 Mg 10 Ml Ud Cup PO 10 ml Q6H PRN Administration Cough Insulin Human Lispro 0 units 06/03/20 18:45 06/16/20 16:19 Humalog 300 Units/3 Ml Vial SC 3 unit .MILD SLIDING SCALE PRN Administration MILD SLIDING SCALE Protocol Ondansetron HCl 4 mg 05/23/20 14:17 06/12/20 14:15 Ondansetron Pf 4 Mg/2 Ml Vial IVP 4 mg Q6H PRN Administration Nausea/Vomiting Polyethylene Glycol 17 gm 06/08/20 09:00 06/17/20 09:06 Polyethylene Glycol 3350 17 Gm Packet PO Not Given DAILY ISABEL Throat Lozenges 1 aaliyah 05/28/20 11:54 05/28/20 15:19 Cepastat Lozenges 1 Aaliyah PO 1 aaliyah Q2H PRN Administration Sore Throat Vancomycin HCl 125 mg 06/15/20 18:00 06/17/20 07:19 Vancomycin Hcl 25 Mg/Ml Oral PO 125 mg Q6HR ISABEL Administration Zinc Sulfate 220 mg 05/26/20 09:00 06/17/20 09:06 Zinc Sulfate 220 Mg Cap PO 220 mg DAILY ISABEL Administration - Exam General Appearance: awake alert ENT: normocephalic atraumatic Neck: supple, no JVD Respiratory: normal chest expansion, no tachypnea Extremities: no cyanosis, no clubbing Hosp A/P (1) Pneumonia due to COVID-19 virus Code(s): U07.1 - COVID-19; J12.89 - OTHER VIRAL PNEUMONIA Status: Acute (2) Diarrhea Code(s): R19.7 - DIARRHEA, UNSPECIFIED Status: Acute (3) DM type 2 (diabetes mellitus, type 2) Status: Acute Qualifiers: Diabetes mellitus oil heaterman insulin use: without usp use Diabetes mellitus complication status: without complication Qualified Code(s): E11.9 - Type 2 diabetes mellitus without complications (4) Respiratory failure with hypoxia Code(s): J96.91 - RESPIRATORY FAILURE, UNSPECIFIED WITH HYPOXIA Status: Acute (5) C. difficile colitis Code(s): A04.72 - ENTEROCOLITIS D/T CLOSTRIDIUM DIFFICILE, NOT SPCF RECUR S tatus: Acute - Plan This is a 50-year-old male with no significant past medical history who was admitted for acute hypoxic respiratory failure due to COVID-19 pneumonia. The patient required ventilatory support and admission to the ICU. He received Decadron, convalescent plasma, anticoagulation, antibiotics, and remdesivir. He was successfully extubated and transferred to the medical floor. 06/15: Today the patient is saturating well on nasal cannula. He had an episode of watery diarrhea today. We will check C. difficile toxin. Add probiotics. 06/16: The patient is positive for C. difficile. Oral vancomycin was initiated. Repeat x-ray showed small effusion without any significant worsening in his lung aeration. No fever or WBC elevation. His procalcitonin level is low. At this time, I do not think he will need more IV antibiotics and those will be discontinued. Discontinue dextrose due to hyponatremia. PT and OT. 06/17: Patient's diarrhea has improved. Continue oral vancomycin for total 14 days. Wean off oxygen as tolerated. Pending placement.
--- NOTE | 2020-06-17 12:10 | PRG ---
DATE OF SERVICE: 06/17/2020 SUBJECTIVE: Rupinder Mercedes, who has been in the hospital here for 25 days. He is extubated. He is doing well. He is just weak. He has C diff now. He is walking in the room. OBJECTIVE: VITAL SIGNS: His temperature is 97 sats are 96% on 4 L, blood pressure 105/63. CHEST: No wheezing. No crackles. CARDIAC: Normal S1, S2. No gallops. ABDOMEN: No masses. LABORATORY DATA: Unremarkable. ASSESSMENT: Cook positive status, respiratory failure slowly getting better, C diff. PLAN: I agree with p.o. vancomycin, supportive care, PT. We will probably switch over to oral medication. Home when he is able to ambulate. Job ID: [id number]
[2020-06-17] MEDS: HumaLOG 300 UNITS/3 ML VIAL SC PRN ×3 (12:15→21:43)
[2020-06-18] MEDS: Vancomycin HCl 25 MG/ML Oral PO SCH ×4 (01:47→18:12)
[2020-06-18] MEDS: Docusate 100 MG CAP PO SCH ×3 (02:32→20:25)
[2020-06-18 05:41] LABS: Anion Gap 11 mmol/L (10-20); BUN (Urea Nitrogen) 13 mg/dL (8.9-20.6); Calc. Creatinine Clearance 153 mL/min (70-130); Calcium 7.6 mg/dL (7.8-10.44); Carbon Dioxide 23 mmol/L (22-29); Glucose 100 mg/dL (70-105); Potassium 4.1 mmol/L (3.5-5.1)
[2020-06-18 06:05] LABS: Chloride 100 mmol/L (98-107); Sodium 130 mmol/L (136-145)
[2020-06-18 06:27] LABS: Hemoglobin 13.4 g/dL (14.0-18.0); Mean Corpuscular HGB CONC 34.6 g/dL (32.0-36.0); Mean Corpuscular Hemoglobin 30.6 pg (27.0-31.0); Mean Corpuscular Volume 88.4 fL (78.0-98.0); Platelet Count 100 thou/uL (130-400); RBC Distribution Width 13.2 % (11.5-14.5); Red Blood Cell (RBC) Count 4.39 mill/uL (4.70-6.10)
[2020-06-18 06:28] LABS: Band 33 % (5-11); Eosinophils 1 % (0-10); Lymphocytes 9 % (21-51); MDiff Complete? YES; Neutrophil 55 % (42-75); Reactive Lymphocytes 2 % (0-10)
[2020-06-18] MEDS: predniSONE 20 MG TAB PO SCH (09:44)
[2020-06-18] MEDS: Ascorbic Acid 500 mg Chewable Tablet PO SCH (09:45)
[2020-06-18] MEDS: Cholecalciferol (Vitamin D3) 400 UNITS TAB PO SCH (09:45)
[2020-06-18] MEDS: Doxycycline 100 MG CAP PO SCH ×2 (09:45→20:24)
[2020-06-18] MEDS: Polyethylene Glycol 3350 17 GM Packet PO SCH (09:46)
[2020-06-18] MEDS: Enoxaparin Sodium 40 MG/0.4 ML SYRINGE SC SCH ×2 (09:46→20:24)
[2020-06-18] MEDS: Famotidine 20 MG TAB PO SCH ×2 (09:46→20:24)
[2020-06-18] MEDS: Zinc Sulfate 220 MG CAP PO SCH (09:46)
[2020-06-18 10:25] VITALS: BMI 25.2
--- NOTE | 2020-06-18 10:41 | PDOC.HOSPP ---
- Subjective Encounter Date: 06/18/20 Subjective: No further episodes of diarrhea. Denies any chest pain or shortness of breath. - Objective Vital Signs & Weight: Vital Signs (12 hours) Temp Pulse Resp BP Pulse Ox 06/18/20 07:45 93 L 06/18/20 05:46 89 14 94/60 93 L 06/18/20 04:10 98.8 F 87 16 98/64 97 06/18/20 02:00 87 16 98/64 91 L 06/18/20 00:00 98.6 F 93 18 98/64 91 L Weight Admit Weight 183 lb 4.8 oz Weight 156 lb Most Recent Monitor Data Heart Rate from ECG 82 NIBP 97/54 NIBP BP-Mean 68 Respiration from ECG 20 SpO2 95 I&O: 06/17/20 06/18/20 06/19/20 06:59 06:59 06:59 Intake Total 1340 1960 Output Total 1000 400 Balance 340 1560 Result Diagrams: 06/18/20 04:53 06/18/20 04:53 Additional Labs: Accuchecks 06/18/20 06/17/20 06/17/20 05:18 21:38 15:30 POC Glucose 107 H 159 H 187 H 06/17/20 11:48 POC Glucose 234 H Hospitalist ROS - Medication Medications: Active Medications Generic Name Dose Route Start Last Admin Trade Name Freq PRN Reason Stop Dose Admin Acetaminophen 650 mg 05/23/20 14:17 06/17/20 05:23 Acetaminophen 325 Mg Tab PO 650 mg Q4H PRN Administration Headache/Fever/Mild Pain (1-3) Albuterol Sulfate 1 puff 05/25/20 23:43 05/30/20 22:00 Albuterol 200 Puff (6.7gm Inhaler) INH 1 puff Q8H PRN Administration Wheezing Ascorbic Acid 1,000 mg 05/26/20 09:00 06/18/20 09:45 Ascorbic Acid 500 Mg Chewable Tablet PO 1,000 mg DAILY ISABEL Administration Cholecalciferol 400 units 05/26/20 09:00 06/18/20 09:45 Cholecalciferol (Vitamin D3) 400 Units Tab PO 400 units DAILY ISABEL Administration Dextrose/Water 25 gm 06/03/20 18:45 06/14/20 04:10 Dextrose 50% Abboject 50 Ml Syringe IVP 25 gm PRN PRN Administration HYPOGLYCEMIA PROTOCOL Docusate Sodium 100 mg 06/08/20 09:00 06/18/20 09:45 Docusate 100 Mg Cap PO Not Given BID [facility] Doxycycline Hyclate 100 mg 06/13/20 21:00 06/18/20 09:45 Doxycycline 100 Mg Cap PO 06/23/20 21:01 100 mg BID ISABEL Administration Enoxaparin Sodium 40 mg 05/23/20 21:00 06/18/20 09:46 Enoxaparin Sodium 40 Mg/0.4 Ml Syringe SC 40 mg 0900,2100 ISABEL Administration Famotidine 20 mg 06/07/20 21:00 06/18/20 09:46 Famotidine 20 Mg Tab PO 20 mg Q12HR ISABEL Administration Guaifenesin/Codeine Phosphate 10 ml 05/28/20 11:54 05/30/20 21:52 Guaifenesin/Codeine Phosphate 200 Mg/20 Mg 10 Ml Ud Cup PO 10 ml Q6H PRN Administration Cough Insulin Human Lispro 0 units 06/03/20 18:45 06/17/20 21:43 Humalog 300 Units/3 Ml Vial SC 2 unit .MILD SLIDING SCALE PRN Administration MILD SLIDING SCALE Protocol Ondansetron HCl 4 mg 05/23/20 14:17 06/12/20 14:15 Ondansetron Pf 4 Mg/2 Ml Vial IVP 4 mg Q6H PRN Administration Nausea/Vomiting Polyethylene Glycol 17 gm 06/08/20 09:00 06/18/20 09:46 Polyethylene Glycol 3350 17 Gm Packet PO Not Given DAILY [facility] Prednisone 40 mg 06/18/20 08:00 06/18/20 09:44 Prednisone 20 Mg Tab PO 40 mg QAM-WM ISABEL Administration Throat Lozenges 1 aaliyah 05/28/20 11:54 05/28/20 15:19 Cepastat Lozenges 1 Aaliyah PO 1 aaliyah Q2H PRN Administration Sore Throat Vancomycin HCl 125 mg 06/15/20 18:00 06/18/20 05:13 Vancomycin Hcl 25 Mg/Ml Oral PO 125 mg Q6HR ISABEL Administration Zinc Sulfate 220 mg 05/26/20 09:00 06/18/20 09:46 Zinc Sulfate 220 Mg Cap PO 220 mg DAILY ISABEL Administration - Exam General Appearance: awake alert ENT: normocephalic atraumatic Neck: supple, no JVD Heart: RRR Respiratory: normal chest expansion, no tachypnea Extremities: no cyanosis, no clubbing Hosp A/P (1) Pneumonia due to COVID-19 virus Code(s): U07.1 - COVID-19; J12.89 - OTHER VIRAL PNEUMONIA Status: Acute (2) Diarrhea Code(s): R19.7 - DIARRHEA, UNSPECIFIED Status: Acute (3) DM type 2 (diabetes mellitus, type 2) Status: Acute Qualifiers: Diabetes mellitus penitentiary insulin use: without equipment operator intermodal yard use Diabetes mellitus complication status: without complication Qualified Code(s): E11.9 - Type 2 diabetes mellitus without complications (4) Respiratory failure with hypoxia Code(s): J96.91 - RESPIRATORY FAILURE, UNSPECIFIED WITH HYPOXIA Status: Acute (5) C. difficile colitis Code(s): A04.72 - ENTEROCOLITIS D/T CLOSTRIDIUM DIFFICILE, NOT SPCF RECUR Status: Acute - Plan This is a 50-year-old male with no significant past medical history who was admitted for acute hypoxic respiratory failure due to COVID-19 pneumonia. The patient required ventilatory support and admission to the ICU. He received Decadron, convalescent plasma, anticoagulation, antibiotics, and remdesivir. He was successfully extubated and transferred to the medical floor. 06/15: Today the patient is saturating well on nasal cannula. He had an episode of watery diarrhea today. We will check C. difficile toxin. Add probiotics. 06/16: The patient is positive for C. difficile. Oral vancomycin was initiated. Repeat x-ray showed small effusion without any significant worsening in his lung aeration. No fever or WBC elevation. His procalcitonin level is low. At this time, I do not think he will need more IV antibiotics and those will be discontinued. Discontinue dextrose due to hyponatremia. PT and OT. 06/17: Patient's diarrhea has improved. Continue oral vancomycin for total 14 days. Wean off oxygen as tolerated. Pending placement. 06/18: The patient's diarrhea has now resolved. Pending placement.
--- NOTE | 2020-06-18 10:57 | PRG ---
DATE OF SERVICE: SUBJECTIVE: Kendrick Mercedes is a 50-year-old gentleman, doing better. OBJECTIVE: VITAL SIGNS: Temperature 98, pulse 90, respirations 14, sats are 98% on 4 L, and blood pressure . CHEST: No wheezing. No crackles. CARDIAC: Normal S1 and S2. No gallops. ABDOMEN: No masses. LABORATORY DATA: Sodium 130. ASSESSMENT: Respiratory failure, holloway positive pneumonia, severe deconditioning, Clostridium difficile. PLAN: He would like to go to rehab, which is being arranged by social service. We will switch him over to oral prednisone, PT, supportive care. His last chest x-ray still showed significant pulmonary infiltrates. We will start tapering prednisone slowly over the course of 2 weeks. Job ID: [id number]
[2020-06-18] MEDS: HumaLOG 300 UNITS/3 ML VIAL SC PRN ×3 (12:59→21:44)
[2020-06-19] MEDS: Vancomycin HCl 25 MG/ML Oral PO SCH ×4 (00:45→18:02)
[2020-06-19 05:42] LABS: #Basophils 0.1 thou/uL (0.0-0.2); #Lymphocytes 1.2 thou/uL (1.20-3.40); #Monocytes 0.6 thou/uL (0.11-0.59); %Eosinophils 0.5 % (0.0-10.0); %Lymphocytes 11.6 % (21.0-51.0); %Monocytes 6.3 % (0.0-10.0); %Neutrophils 80.6 % (42.0-75.0); Hemoglobin 13.3 g/dL (14.0-18.0); Mean Corpuscular HGB CONC 34.1 g/dL (32.0-36.0); Mean Corpuscular Hemoglobin 30.2 pg (27.0-31.0); Mean Corpuscular Volume 88.6 fL (78.0-98.0); Mean Platelet Volume 8.8 fL (7.4-10.4); Platelet Count 109 thou/uL (130-400); RBC Distribution Width 13.3 % (11.5-14.5); Red Blood Cell (RBC) Count 4.41 mill/uL (4.70-6.10); White Blood Cell (WBC) Count 9.9 thou/uL (4.8-10.8)
[2020-06-19 05:47] LABS: Anion Gap 13 mmol/L (10-20); BUN (Urea Nitrogen) 14 mg/dL (8.9-20.6); Calc. Creatinine Clearance 150 mL/min (70-130); Calcium 7.9 mg/dL (7.8-10.44); Carbon Dioxide 25 mmol/L (22-29); Chloride 100 mmol/L (98-107); Glucose 107 mg/dL (70-105); Potassium 3.9 mmol/L (3.5-5.1); Sodium 134 mmol/L (136-145)
[2020-06-19] MEDS: Zinc Sulfate 220 MG CAP PO SCH (08:06)
[2020-06-19] MEDS: predniSONE 20 MG TAB PO SCH (08:06)
[2020-06-19] MEDS: Ascorbic Acid 500 mg Chewable Tablet PO SCH (08:06)
[2020-06-19] MEDS: Doxycycline 100 MG CAP PO SCH (08:07)
[2020-06-19] MEDS: Cholecalciferol (Vitamin D3) 400 UNITS TAB PO SCH (08:07)
[2020-06-19] MEDS: Famotidine 20 MG TAB PO SCH (08:07)
[2020-06-19] MEDS: Polyethylene Glycol 3350 17 GM Packet PO SCH (08:08)
[2020-06-19] MEDS: Enoxaparin Sodium 40 MG/0.4 ML SYRINGE SC SCH (08:08)
[2020-06-19] MEDS: Docusate 100 MG CAP PO SCH (08:08)
--- NOTE | 2020-06-19 10:39 | PDOC.DS.DS ---
Provider - Provider Date of Admission: 05/23/20 16:09 Date of Discharge: 06/19/20 Admitting Provider: Emma Skinner MD Primary Care Physician: Unknown Course - Hospital Course Hospital Course: This is a 50-year-old male with no significant past medical history who was adm itted for acute hypoxic respiratory failure due to COVID-19 pneumonia. The patient required ventilatory support and admission to the ICU. He received Decadron, convalescent plasma, anticoagulation, antibiotics, and remdesivir. He was successfully extubated and transferred to the medical floor. 06/15: Today the patient is saturating well on nasal cannula. He had an episode of watery diarrhea today. We will check C. difficile toxin. Add probiotics. 06/16: The patient is positive for C. difficile. Oral vancomycin was initiated. Repeat x-ray showed small effusion without any significant worsening in his lung aeration. No fever or WBC elevation. His procalcitonin level is low. At this time, I do not think he will need more IV antibiotics and those will be discontinued. Discontinue dextrose due to hyponatremia. PT and OT. 06/17: Patient's diarrhea has improved. Continue oral vancomycin for total 14 days. Wean off oxygen as tolerated. Pending placement. 06/18: The patient's diarrhea has now resolved. Pending placement. 06/19: The patient refused inpatient rehab placement instead opted for outpatient rehab. - Labs Lab Results: 06/19/20 05:04 06/19/20 05:04 Abnormal Lab Results - Last 48 hrs 06/18/20 04:53: Sodium 130 L, Creatinine 0.58 L, Calcium 7.6 L 06/18/20 04:53: RBC 4.39 L, Hgb 13.4 L, Hct 38.8 L, Plt Count 100 L, Band Neuts % (Manual) 33 H, Lymphocytes % (Manual) 9 L 06/19/20 05:04: Sodium 134 L, Creatinine 0.59 L 06/19/20 05:04: RBC 4.41 L, Hgb 13.3 L, Hct 39.1 L, Plt Count 109 L, Neutrophils % 80.6 H, Lymphocytes % 11.6 L, Neutrophils # 8.0 H, Monocytes # 0.6 H Microbiology - Entire Visit 06/15/20 14:12 Stool C. difficile GDH Antigen & Toxins - Final 06/15/20 14:12 Stool Clostridioides difficile Toxins A&B (PCR) - Final 05/23/20 11:11 Venous blood - Left Arm Blood Culture - Final NO GROWTH IN 5 DAYS 05/23/20 11:11 Venous blood - Left Hand Blood Culture - Final NO GROWTH IN 5 DAYS 05/23/20 14:14 Urine clean catch Urine Culture - Final - Physical Exam Vitals: Vital Signs (12 hours) Temp Pulse Resp BP BP Pulse Ox 06/19/20 08:15 99.0 F 91 20 112/62 93 L 06/19/20 06:57 93 L 06/19/20 04:00 98.3 F 80 20 103/65 93 L 06/18/20 23:54 98.6 F 78 20 107/65 97 Weight Admit Weight 183 lb 4.8 oz Weight 156 lb Most Recent Monitor Data Heart Rate from ECG 82 NIBP 97/54 NIBP BP-Mean 68 Respiration from ECG 20 SpO2 95 Physical Exam: The patient was seen and examined on the day of discharge. Problem - Problem (1) Pneumonia due to COVID-19 virus Code(s): U07.1 - COVID-19; J12.89 - OTHER VIRAL PNEUMONIA Status: Acute (2) Diarrhea Code(s): R19.7 - DIARRHEA, UNSPECIFIED Status: Acute (3) DM type 2 (diabetes mellitus, type 2) Status: Acute Qualifiers: Diabetes mellitus termite technician insulin use: without skilled nursing use Diabetes mellitus complication status: without complication Qualified Code(s): E11.9 - Type 2 diabetes mellitus without complications (4) Respiratory failure with hypoxia Code(s): J96.91 - RESPIRATORY FAILURE, UNSPECIFIED WITH HYPOXIA Status: Acute (5) C. difficile colitis Code(s): A04.72 - ENTEROCOLITIS D/T CLOSTRIDIUM DIFFICILE, NOT SPCF RECUR Status: Acute Plan - Discharge Medications Prescriptions: Vancomycin HCl [Vancocin HCl] 125 mg PO Q6HR #40 capsule predniSONE 20 mg PO QAM-WM #5 tab Home Medications: Medication Instructions Recorded Confirmed Type Vancomycin HCl [Vancocin HCl] 125 mg PO Q6HR #40 capsule 06/19/20 Rx predniSONE 20 mg PO QAM-WM #5 tab 06/19/20 Rx Allergies: No Known Allergies Allergy (Verified 05/23/20 16:31) - Follow up Plan Referrals: Unknown,Unknown [Primary Care Provider] - Disposition: HOME Quality - Care Measures CORE MEASURES:: N/A
[2020-06-19] MEDS: HumaLOG 300 UNITS/3 ML VIAL SC PRN ×2 (10:54→15:37)
--- NOTE | 2020-06-19 10:55 | PRG ---
DATE OF SERVICE: 06/19/2020 SUBJECTIVE: Kendrick Mercedes remains on nasal O2. OBJECTIVE: VITAL SIGNS: Temperature respirations 20, sats 90% on 4 L, blood pressure 112/62. GENERAL: He said he is feeling better. Slight cough, but no shortness of breath. CHEST: No wheezing. No crackles. CARDIAC: Normal S1, S2. No gallops. LABORATORY DATA: Labs are unremarkable. IMPRESSION: Respiratory failure, holloway positive pneumonia, status post intubation. The patient apparently is going to go home with outpatient PT, oxygen being arranged. I will finish the p.o. vancomycin for 10 days, steroids I would slowly decrease the course for two weeks. Job ID: [id number]
[2020-06-19 16:04] VITALS: BP 110/62; TEMP 98.3
--- NOTE | 2020-06-21 03:16 | PQF ---
CLINICAL DOCUMENTATION CLARIFICATION FORM: Dear : Emma Skinner Date / Time: 06/21/20 0343 Please exercise your independent, professional judgment in responding to the clarification form. Clinical indicators are provided on the bottom of this form for your review Please check appropriate box(es): [> ] Sepsis due to Covid Pneumonia [ ] Severe sepsis due to Covid Pneumonia with Acute Respiratory Failure [ ] Septic Shock due to Covid Pneumonia [ ] Localized infection without sepsis [ ] Other diagnosis, please specify [ ] Unable to determine In addition, please specify: Present on Admission (POA): [ > ] Yes [ ] No [ ] Unable to determine Physician Signature: Date/Time: For continuity of documentation, please document condition throughout progress notes and discharge summary. Thank You. To be completed by CDI/Coding staff for physician review: Present Clinical Indicators - Signs / Symptoms / Labs Results and Location in Medical Record [x] WBC 16.1, Neutrophils 82, Band 14, Lactic acid 2.5 Laboratory 05/23 [x] Covid PCR test: Detected Serology 05/18 [x] Blood culture: No growth 05/23 Microbiology 05/23 [x] BP 94/55, Pulse 102, Resp 22, Temp 99.7 Vital signs 05/23 [x] SIRS scoring: Pt did meet criteria ED notes p2 05/23 [x] Presented with SOB H&P p1 05/23 Dr Skinner [x] Covid Pneumonia H&P p1 05/23 Dr Skinner [x] Acute respiratory failure H&P p1 05/23 Dr Skinner [x] Chest Xray: Fairly extensive progressive alveolar, interstitial and ground glass opacity Chest Xray 05/23 [x] patient is positive for C. Diff DS 05/23 Present Risk Factors Results and Location in Medical Record [x] Covid Pneumonia H&P p1 05/23 Dr Skinner [x] DM H&P p1 05/23 Dr Skinner [x] C. Diff colitis DS 05/23 Present Treatments Results and Location in Medical Record [x] IV Azithromax 500 mg MAR 05/23 [x] IV Cefepime 1 gm JUL 29 [x] IV Rocephin 1 gm MAR 05/23 [x] IV Doxycycline Hyclate 100 mg JUL 29 [x] IV Remdesivir 200 mg AUG 09 [x] Convalescent plasma Blood bank 05/31 [x] Sepsis Protocol ED notes p2 05/23 [x] Mechanical ventilator Respiratory panel 05/31 [x] ID consult Consult 05/29 [x] Pulmonology Consult Consult 05/31 CDS/International Affairs Vice President Signature: Madelin Templeton Phone #: [phone] Date/Time: 06/21/205 This is a permanent part of the Medical Record [facility]
== END 2020-06-19 18:45 | disposition home or self-care (01) | DRG 870 ==
LOC: ERS 10:53 → T4-A 16:03 → CCU 05-31 08:45 → 2SE 06-15 09:41
PROVIDERS: ADMIT Internal Medicine; ATTEND Internal Medicine
PROC: 8E0ZXY6 Isolation (ICD-10-PCS; 2020-05-23)
PROC: XW033E5 Introduction of Remdesivir Anti-infective into Peripheral Vein, Percutaneous Approach, New Technology Group 5 (ICD-10-PCS; 2020-05-29)
PROC: 5A1955Z Respiratory Ventilation, Greater than 96 Consecutive Hours (ICD-10-PCS; principal; 2020-05-31)
PROC: XW13325 Transfusion of Convalescent Plasma (Nonautologous) into Peripheral Vein, Percutaneous Approach, New Technology Group 5 (ICD-10-PCS; 2020-05-31)
PROC: 0BH17EZ Insertion of Endotracheal Airway into Trachea, Via Natural or Artificial Opening (ICD-10-PCS; 2020-05-31)
DX: A41.89 Other specified sepsis (principal); U07.1 COVID-19; J12.82 Pneumonia due to coronavirus disease 2019; J96.01 Acute respiratory failure with hypoxia; E87.1 Hypo-osmolality and hyponatremia; A04.72 Enterocolitis due to Clostridium difficile, not specified as recurrent; Z51.5 Encounter for palliative care; E11.65 Type 2 diabetes mellitus with hyperglycemia; Z78.1 Physical restraint status; Z28.21 Immunization not carried out because of patient refusal; Z90.49 Acquired absence of other specified parts of digestive tract
CPT/HCPCS: 36415; 36416; 36430; 36600; 71045; 71275; 80048; 80053; 81003; 82330; 82728; 82803; 82805; 83036; 83605; 83880; 84145; 84484; 85007; 85025; 85027; 85379; 86140; 86850; 86900; 86901; 87040; 87086; 87324; 87449; 87493; 93005; 94002; 94003; 96365; 96367; 96375; J0456; J0692; J0696; J1100; J1650; J1815; J1940; J2060; J2270; J2405; J2704; J3010; J3490; J7050; J7512; P9017; P9047; Q9967; S0028